=== PATIENT | female | born 1945 | race Caucasian/White ===

== ENCOUNTER 2016-06-12 08:07 | Emergency (ER) | payer OTHER ==
[2016-06-12 08:18] VITALS: BP 131/96; PULSE 102; TEMP 98.3; BMI 22.2
--- NOTE | 2016-06-12 09:01 | PDOC ---
History of Present Illness - General Chief Complaint: Sore Throat Stated Complaint: SORE THROAT Time Seen by Provider: 06/12/16 08:33 History Source: Patient Exam Limitations: No Limitations - History of Present Illness Initial Comments: 06/12/16 08:56 CC many months of dry mouth Timing/Duration: intermittent Severity: mild Modifying Factors: worse with: cold therapy, medication Associated Symptoms: denies: cough, loss of appetite, malaise, shortness of breath Past History - Past Medical History Allergies/Adverse Reactions: Allergies Allergy/AdvReac Type Severity Reaction Status Date / Time ibuprofen [From Motrin] Allergy Intermediate Rash Verified 06/12/16 08:13 Home Medications: Ambulatory Orders Acetaminophen [Tylenol .Extra-Strength -] 1,000 mg PO TID #20 tablet 04/19/13 Lisinopril/Hydrochlorothiazide [Lisinopril-Hctz 20-25 mg Tab] 1 each PO DAILY Lovastatin 20 mg PO DAILY 04/19/13 Metaxalone [Skelaxin] 800 mg PO TID #15 tablet 04/19/13 GI Disorders: Yes (GERD) HTN: Yes Hypercholesterolemia: Yes - Surgical History Abdominal Surgery: Yes (hernia) - Psycho/Social/Smoking Cessation Hx Anxiety: No Suicidal Ideation: No Smoking Status: No Smoking History: Never smoked Number of Cigarettes Smoked Daily: 0 Hx Alcohol Use: No Drug/Substance Use Hx: No Substance Use Type: None Review of Systems - Review of Systems Constitutional: No: Chills, Fever HEENTM: Yes: Mouth Pain. No: Symptoms Reported, Nose Bleeding, Throat Pain, Throat Swelling, Difficulty Swallowing, Mouth Swelling Respiratory: No: Symptoms reported, Cough Cardiac (ROS): No: Symptoms Reported, Chest Pain ABD/GI: No: Symptoms Reported *Physical Exam - Vital Signs Last Vital Signs Temp Pulse Resp BP Pulse Ox 98.3 F 102 H 20 131/96 98 06/12/16 08:08 06/12/16 08:08 06/12/16 08:08 06/12/16 08:08 06/12/16 08:08 - Physical Exam General Appearance: Yes: Appropriately Dressed HEENT: positive: TMs Normal, Other (nasal tissue appear dry and no mucous) Neck: positive: Lymphadenopathy (R), Lymphadenopathy (L). negative: Tender, Rigid Respiratory/Chest: positive: Lungs Clear. negative: Accessory Muscle Use Medical Decision Making - Medical Decision Making 06/12/16 08:[address] Ly; also will suggest sugarless candy to stimulate silivary activities *DC/Admit/Observation/Transfer Diagnosis at time of Disposition: Xerostomia, Lymphadenopathy - Discharge Dispostion Disposition: HOME Condition at time of disposition: Stable Admit: No - Referrals Referrals: Evan Ly MD [Staff Physician] - - Patient Instructions Additional Instructions: please use sugarless throat lozenges; and see DR. ly in offices for further work up
== END 2016-06-12 09:10 | disposition home or self-care (01) ==
LOC: JERFT 08:07 → JER 08:07 → JERFT 09:10
DX: K11.7 Disturbances of salivary secretion (principal); R59.0 Localized enlarged lymph nodes; I10 Essential (primary) hypertension; E78.00 Pure hypercholesterolemia, unspecified; K21.9 Gastro-esophageal reflux disease without esophagitis
CPT/HCPCS: 99281-25

== ENCOUNTER 2018-08-07 13:34 | Emergency (ER) | payer OTHER ==
[2018-08-07 14:08] VITALS: BP 120/68; PULSE 75; TEMP 98; BMI 53.4
--- NOTE | 2018-08-07 15:50 | PDOC ---
History of Present Illness - General Chief Complaint: Injury Stated Complaint: injury Time Seen by Provider: 08/07/18 15:37 - History of Present Illness Initial Comments: 08/07/18 15:49 He 3-year-old female with a past medical history significant for hypertension acid reflux and dyslipidemia presents for evaluation of right second finger pain. 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 Past History - Past Medical History Allergies/Adverse Reactions: Allergies Allergy/AdvReac Type Severity Reaction Status Date / Time ibuprofen [From Motrin] Allergy Intermediate Rash Verified 08/07/18 14:08 Home Medications: Ambulatory Orders Lisinopril/Hydrochlorothiazide [Lisinopril-Hctz 20-25 mg Tab] 1 each PO DAILY Lovastatin 20 mg PO DAILY 04/19/13 Metaxalone [Skelaxin] 800 mg PO TID #15 tablet 04/19/13 COPD: No GI Disorders: Yes (GERD) HTN: Yes Hypercholesterolemia: Yes - Surgical History Abdominal Surgery: Yes (hernia) - Suicide/Smoking/Psychosocial Hx Smoking Status: No Smoking History: Never smoked Have you smoked in the past 12 months: No Number of Cigarettes Smoked Daily: 0 Information on smoking cessation initiated: No Hx Alcohol Use: No Drug/Substance Use Hx: No Substance Use Type: None Review of Systems - Review of Systems Musculoskeletal: Yes: See HPI, Joint Pain *Physical Exam - Vital Signs Last Vital Signs Temp Pulse Resp BP Pulse Ox 98.0 F 75 16 120/68 100 08/07/18 14:03 08/07/18 14:03 08/07/18 14:03 08/07/18 14:03 08/07/18 14:03 - Physical Exam Comments: 08/07/18 15:49 Right second finger skin color and temperature are normal. There is moderate swelling about the proximal aspect of the finger on the skin overlying the proximal phalanx. There are no gross sensory deficits. However she is unable to make a full fist and FDS and FDP function unable to be independently evaluated. This is secondary to pain. ED Treatment Course - RADIOLOGY Radiology Studies Ordered: Category Date Time Status HAND- RIGHT [RAD] Stat Radiology 08/07/18 15:46 Ordered Medical Decision Making - Medical Decision Making 08/07/18 16:20 no acute fx on raidograph today, moderate to severe arthritic changes, f/u with hand *DC/Admit/Observation/Transfer Diagnosis at time of Disposition: Finger sprain - Discharge Dispostion Disposition: HOME Condition at time of disposition: Stable Decision to Admit order: No - Referrals Referrals: Woo Reyes MD [Primary Care Provider] - Woo Mcdonald MD [Staff Physician] - - Patient Instructions Printed Discharge Instructions: DI for Finger Sprain, Finger Sprain Additional Instructions: Follow-up with hand surgery in 1-2 days for further evaluation and treatment options. Return to the emergency room for worsening symptoms. Tylenol as directed for pain. - Post Discharge Activity
== END 2018-08-07 16:35 | disposition home or self-care (01) ==
LOC: JERFT 13:34
DX: S63.630A Sprain of interphalangeal joint of right index finger, initial encounter (principal); X50.9XXA Other and unspecified overexertion or strenuous movements or postures, initial encounter; Y93.89 Activity, other specified; Y92.89 Other specified places as the place of occurrence of the external cause; Y99.0 Civilian activity done for income or pay; I10 Essential (primary) hypertension; E78.5 Hyperlipidemia, unspecified; K21.9 Gastro-esophageal reflux disease without esophagitis
CPT/HCPCS: 73130-TC-RT-FY; 99281-25

== ENCOUNTER 2019-05-03 10:51 | Emergency (ER) | payer OTHER ==
[2019-05-03 10:57] VITALS: TEMP 98.4; BMI 24.0
[2019-05-03] MEDS ORDERED: ONDANSETRON 4 MG/2 ML VIAL IVPUSH ONE (12:04)
[2019-05-03] MEDS ORDERED: ONDANSETRON 4 MG/2 ML VIAL ONE (12:53)
[2019-05-03] MEDS ORDERED: SODIUM CHLORIDE 500 ML IV STA (13:14)
[2019-05-03 13:16] LABS: BASO % 1.1 % (0-2.0); EOS % 1.4 % (0-4.5); HEMOGLOBIN 11.7 GM/dL (10.7-15.3); LYMPH % 18.8 % (8-40); MCH 27.9 pg (25.7-33.7); MCHC 34.4 g/dl (32.0-36.0); MEAN CELL VOLUME 81.1 fl (80-96); MEAN PLT VOLUME 7.8 fl (7.5-11.1); MONO % 10.7 % (3.8-10.2); PLATELET COUNT 479 K/MM3 (134-434); RBC 4.19 M/mm3 (3.60-5.2); RDW 14.5 % (11.6-15.6); WHITE BLOOD COUNT 7.1 K/mm3 (4.0-10.0)
[2019-05-03 13:49] LABS: ALBUMIN 3.4 g/dl (3.4-5.0); BILIRUBIN,TOTAL 0.4 mg/dL (0.2-1); BLOOD UREA NITROGEN 13.2 mg/dL (7-18); CALCIUM 9.5 mg/dL (8.5-10.1); CREATININE 0.9 mg/dL (0.55-1.3); MAGNESIUM 2.2 mg/dL (1.8-2.4); POTASSIUM 4.4 mmol/L (3.5-5.1); TOT PROT 7.2 g/dl (6.4-8.2)
[2019-05-03 14:17] LABS: HYALINE CASTS 8 /lpf (0-8); URINE APPEARANCE CLEAR; URINE BACTERIA 7.9 /hpf (NEGATIVE); URINE BILIRUBIN NEGATIVE (NEGATIVE); URINE COLOR YELLOW; URINE GLUCOSE (UA) NEGATIVE (NEGATIVE); URINE KETONE NEGATIVE (NEGATIVE); URINE LEUK ESTERASE TRACE (NEGATIVE); URINE NITRITE NEGATIVE (NEGATIVE); URINE PROTEIN 1+ (NEGATIVE); URINE RBC 1 /hpf (0-4); URINE WBC 2 /hpf (0-5)
--- NOTE | 2019-05-03 15:47 | PDOC ---
History of Present Illness - General Chief Complaint: Pain, Acute Stated Complaint: NAUSEA/VOMITING Time Seen by Provider: 05/03/19 12:03 History Source: Patient Exam Limitations: No Limitations - History of Present Illness Travel History: No Initial Comments: 05/03/19 14:45 73-year-old female presents the ED with complaints of intermittent nausea and vomiting for the past 3 months causing her to lose approximately 10 pounds. Patient has been seen by motor equipment sergeant and she states she also had fullness with swallowing but EGD showed no significant findings. Patient also states was told recently she had a pituitary tumor that was found on head CT now pending an MRI of the brain. Patient denies change in bowel pattern, change in urine pattern, fever, chills, weakness or headache patient also denies any visual changes or posterior neck pain Timing/Duration: reports: getting worse, intermittent Quality: reports: mild, cramping Abdominal Pain Onset Location: reports: generalized abdomen Pain Radiation: reports: no radiation Activities at Onset: reports: none Aggravating Factors: improves with: Eating Alleviating Factors: improves with: None Past History - Travel Traveled outside of the country in the last 30 days: No Close contact w/someone who was outside of country & ill: No - Past Medical History Allergies/Adverse Reactions: Allergies Allergy/AdvReac Type Severity Reaction Status Date / Time ibuprofen [From Motrin] Allergy Intermediate Rash Verified 08/07/18 14:08 Home Medications: Ambulatory Orders Lisinopril/Hydrochlorothiazide [Lisinopril-Hctz 20-25 mg Tab] 1 each PO DAILY Lovastatin 20 mg PO DAILY 04/19/13 Metaxalone [Skelaxin] 800 mg PO TID #15 tablet 04/19/13 COPD: No GI Disorders: Yes (GERD) HTN: Yes Hypercholesterolemia: Yes - Surgical History Abdominal Surgery: Yes (hernia) - Psycho Social/Smoking Cessation Hx Smoking Status: No Smoking History: Never smoked Have you smoked in the past 12 months: No Number of Cigarettes Smoked Daily: 0 Hx Alcohol Use: No Drug/Substance Use Hx: No Substance Use Type: None Patient Lives Alone: No Lives with/in: son Abd/GI Specific PMHX - Complaint Specific PMHX GERD: Yes Review of Systems - Review of Systems Able to Perform ROS?: Yes Constitutional: Yes: Loss of Appetite, Unintentional Wgt. Loss (Approximately 10 pounds over 3 months) HEENTM: No: Symptoms Reported Respiratory: No: Symptoms reported Cardiac (ROS): No: Symptoms Reported ABD/GI: Yes: Nausea, Poor Appetite, Poor Fluid Intake, Vomiting, Abdominal cramping. No: Constipated, Diarrhea : No: Symptoms Reported Musculoskeletal: No: Symptoms Reported Integumentary: No: Symptoms Reported Neurological: No: Headache, Dizziness Hematologic/Lymphatic: No: Symptoms Reported *Physical Exam - Vital Signs Last Vital Signs Temp Pulse Resp BP Pulse Ox 98.4 F 55 L 22 H 140/76 99 05/03/19 10:55 05/03/19 10:55 05/03/19 10:55 05/03/19 10:55 05/03/19 10:55 - Physical Exam General Appearance: Yes: Nourished, Appropriately Dressed. No: Apparent Distress, Cachetic, Thin HEENT: positive: EOMI, ALEXEY, TMs Normal, Pharynx Normal. negative: Pale Conjunctivae Neck: positive: Supple Respiratory/Chest: positive: Lungs Clear, Normal Breath Sounds. negative: Respiratory Distress, Accessory Muscle Use Cardiovascular: positive: Regular Rhythm, Regular Rate. negative: Murmur Gastrointestinal/Abdominal: positive: Normal Bowel Sounds, Soft, Tenderness ( Mild generalized). negative: Distended, Guarding, Rebound Extremity: positive: Normal Inspection Integumentary: positive: Normal Color, Warm, Moist Neurologic: positive: Motor Strength 5/5 (Ambulatory) ED Treatment Course - LABORATORY CBC & Chemistry Diagram: 05/03/19 12:53 05/03/19 12:53 - ADDITIONAL ORDERS Additional order review: Laboratory Results 05/03/19 05/03/19 14:08 12:53 Sodium 128 L Potassium 4.4 Chloride 92 L Carbon Dioxide 27 Anion Gap 9 BUN 13.2 Creatinine 0.9 Est GFR (CKD-EPI)AfAm 74.56 Est GFR (CKD-EPI)NonAf 64.33 Random Glucose 110 H Calcium 9.5 Magnesium 2.2 Total Bilirubin 0.4 AST 29 ALT 30 Alkaline Phosphatase 210 H Total Protein 7.2 Albumin 3.4 Lipase 206 Urine Color Yellow Urine Appearance Clear Urine pH 6.0 Ur Specific [place] 1.019 Urine Protein 1+ H Urine Glucose (UA) Negative Urine Ketones Negative Urine Blood Negative Urine Nitrite Negative Urine Bilirubin Negative Urine Urobilinogen 1.0 Ur Leukocyte Esterase Trace Urine WBC (Auto) 2 Urine RBC (Auto) 1 Urine Casts (Auto) 8 U Epithel Cells (Auto) 1.0 Urine Bacteria (Auto) 7.9 05/03/19 12:53 RBC 4.19 MCV 81.1 MCHC 34.4 RDW 14.5 MPV 7.8 Neutrophils % 68.0 Lymphocytes % 18.8 Monocytes % 10.7 H Eosinophils % 1.4 Basophils % 1.1 - RADIOLOGY Radiology Studies Ordered: Category Date Time Status ABDOMEN & PELVIS CT WITH CONTR [CT] Stat CT Scan 05/03/19 13:03 Ordered - Medications Given in the ED: ED Medications Discontinued Medications Generic Name Dose Route Start Last Admin Trade Name Freq PRN Reason Stop Dose Admin Sodium Chloride 500 mls @ 500 mls/hr 05/03/19 13:14 05/03/19 13:27 Normal Saline - IV 05/03/19 14:13 500 mls/hr ASDIR STA Administration Ondansetron HCl 4 mg 05/03/19 12:04 05/03/19 13:03 Zofran Injection IVPUSH 05/03/19 12:05 4 mg ONCE ONE Administration Medical Decision Making - Medical Decision Making 05/03/19 15:46 Chief complaint nausea vomiting with a 10 pound weight loss over the past 3 months. Patient also with found pituitary tumor pending an MRI of the brain patient was also seen by GI since she also states had difficulty swallowing with no significant findings on EGD. Exam: Patient with mild generalized tenderness to the abdomen without other acute findings. Plan: Labs, urine, IV fluids, Zofran, abdominal pelvis CT with contrast ordered chief complaint: 05/03/19 15:48 Laboratory Tests 05/03/19 05/03/19 05/03/19 12:53 12:53 13:05 WBC 7.1 Hgb 11.7 Hct 34.0 Plt Count 479 H Monocytes % 10.7 H Sodium 128 L Potassium 4.4 Chloride 92 L Carbon Dioxide 27 Anion Gap 9 BUN 13.2 Creatinine 0.9 Est GFR (CKD-EPI)AfAm 74.56 Est GFR (CKD-EPI)NonAf 64.33 Random Glucose 110 H Calcium 9.5 Magnesium 2.2 Total Bilirubin 0.4 AST 29 ALT 30 Alkaline Phosphatase 210 H Total Protein 7.2 Albumin 3.4 Lipase 206 Cortisol AM Sample Pending Urine Protein Urine Glucose (UA) Urine Ketones Urine Blood Urine Nitrite Urine Bilirubin Urine Urobilinogen Ur Leukocyte Esterase Urine WBC (Auto) Urine RBC (Auto) Urine Casts (Auto) 05/03/19 14:08 WBC Hgb Hct Plt Count Monocytes % Sodium Potassium Chloride Carbon Dioxide Anion Gap BUN Creatinine Est GFR (CKD-EPI)AfAm Est GFR (CKD-EPI)NonAf Random Glucose Calcium Magnesium Total Bilirubin AST ALT Alkaline Phosphatase Total Protein Albumin Lipase Cortisol AM Sample Urine Protein 1+ H Urine Glucose (UA) Negative Urine Ketones Negative Urine Blood Negative Urine Nitrite Negative Urine Bilirubin Negative Urine Urobilinogen 1.0 Ur Leukocyte Esterase Trace Urine WBC (Auto) 2 Urine RBC (Auto) 1 Urine Casts (Auto) 8 05/03/19 15:52 Patient did receive IV fluids patient states feeling better in regards to nausea. Patient currently in CT. Case discussed with Resident Dr. Pagan Discharge - Discharge Information Problems reviewed: Yes Clinical Impression/Diagnosis: Abdominal pain Condition: Improved Disposition: HOME - Follow up/Referral Referrals: Woo Reyes MD [Primary Care Provider] - - Patient Discharge Instructions Patient Printed Discharge Instructions: DI for Abdominal Pain-Adult Additional Instructions: Follow up with your primary care doctor within the next 2 days and let him known about your cat scan findings. Come back to the emergency department for any new, worsening or concerning symptom. Print Language: PALESTINIAN - Post Discharge Activity
--- NOTE | 2019-05-03 18:56 | PDOC ---
*Physical Exam - Vital Signs Last Vital Signs Temp Pulse Resp BP Pulse Ox 98.4 F 55 L 22 H 140/76 99 05/03/19 10:55 05/03/19 10:55 05/03/19 10:55 05/03/19 10:55 05/03/19 10:55 ED Treatment Course - LABORATORY CBC & Chemistry Diagram: 05/03/19 12:53 05/03/19 12:53 - ADDITIONAL ORDERS Additional order review: Laboratory Results 05/03/19 05/03/19 14:08 12:53 Sodium 128 L Potassium 4.4 Chloride 92 L Carbon Dioxide 27 Anion Gap 9 BUN 13.2 Creatinine 0.9 Est GFR (CKD-EPI)AfAm 74.56 Est GFR (CKD-EPI)NonAf 64.33 Random Glucose 110 H Calcium 9.5 Magnesium 2.2 Total Bilirubin 0.4 AST 29 ALT 30 Alkaline Phosphatase 210 H Total Protein 7.2 Albumin 3.4 Lipase 206 Urine Color Yellow Urine Appearance Clear Urine pH 6.0 Ur Specific [place] 1.019 Urine Protein 1+ H Urine Glucose (UA) Negative Urine Ketones Negative Urine Blood Negative Urine Nitrite Negative Urine Bilirubin Negative Urine Urobilinogen 1.0 Ur Leukocyte Esterase Trace Urine WBC (Auto) 2 Urine RBC (Auto) 1 Urine Casts (Auto) 8 U Epithel Cells (Auto) 1.0 Urine Bacteria (Auto) 7.9 05/03/19 12:53 RBC 4.19 MCV 81.1 MCHC 34.4 RDW 14.5 MPV 7.8 Neutrophils % 68.0 Lymphocytes % 18.8 Monocytes % 10.7 H Eosinophils % 1.4 Basophils % 1.1 - Medications Given in the ED: ED Medications Discontinued Medications Generic Name Dose Route Start Last Admin Trade Name Freq PRN Reason Stop Dose Admin Sodium Chloride 500 mls @ 500 mls/hr 05/03/19 13:14 05/03/19 13:27 Normal Saline - IV 05/03/19 14:13 500 mls/hr ASDIR STA Administration Ondansetron HCl 4 mg 05/03/19 12:04 05/03/19 13:03 Zofran Injection IVPUSH 05/03/19 12:05 4 mg ONCE ONE Administration Medical Decision Making - Medical Decision Making 05/03/19 18:[address] findings of acute abnormality are identified. A nonspecific 3 x 2.7 x 1.4 cm soft tissue nodule is seen within the right anterior pelvic wall abutting the pelvic wall musculature - ? Possible desmoid. A 1 cm left adrenal nodule is seen very likely representing an adenoma on a statistical basis. Biochemical evaluation is suggested as well as 3 month follow-up noncontrast CT/ MRI. 1 cm distal splenic artery aneurysm with peripheral rim calcification PAtient feels much better, wishes to eat. Will tell patient about ct findings and dc home. Discharge - Discharge Information Problems reviewed: Yes Clinical Impression/Diagnosis: Abdominal pain Condition: Improved Disposition: HOME - Admission No - Follow up/Referral Referrals: Woo Reyes MD [Primary Care Provider] - - Patient Discharge Instructions Patient Printed Discharge Instructions: DI for Abdominal Pain-Adult Additional Instructions: Follow up with your primary care doctor within the next 2 days and let him known about your cat scan findings. Come back to the emergency department for any new, worsening or concerning symptom. Print Language: [place] TOME[place] - Post Discharge Activity
[2019-05-03 19:11] VITALS: BP 166/81; PULSE 54
== END 2019-05-03 19:11 | disposition home or self-care (01) ==
LOC: SUPCPDRO 10:51 → JER 10:51
PROC: 3E0337Z Introduction of Electrolytic and Water Balance Substance into Peripheral Vein, Percutaneous Approach (ICD-10-PCS; principal; 2019-05-03)
PROC: 3E033GC Introduction of Other Therapeutic Substance into Peripheral Vein, Percutaneous Approach (ICD-10-PCS; 2019-05-03)
DX: R10.9 Unspecified abdominal pain (principal)
CPT/HCPCS: 36415; 74177-TC; 80053; 81003; 82533; 83690; 83735; 84443; 85025; 87086; 99285-25; Q9967

== ENCOUNTER 2019-05-05 15:16 | Inpatient (IN) | payer OTHER ==
--- NOTE | 2019-05-05 16:04 | PDOC ---
History of Present Illness - General Chief Complaint: Nausea/Vomiting Stated Complaint: VOMITING/STOMACH PAIN Time Seen by Provider: 05/05/19 16:03 History Source: Patient Exam Limitations: No Limitations - History of Present Illness Initial Comments: 05/05/19 16:07 73yF w PMHx HTN HLD GERD constipation pituitary tumor presenting w 2 weeks nausea/vomiting w PO intake, 10lb weight loss, mild constant epigastric pain feels like intestines twisting. Last BM this morning. Takes protonix w/o relief. Seen in ED 2d ago, CT A/P showed soft tissue nodule in R anterior pelvic wall, 1cm L adrenal nodule, 1cm distal splenic artery aneurysm. Has scheduled brain MRI tomorrow to evaluate pituitary tumor found on head CT. Also seen by salary manager and she states she also had fullness with swallowing but EGD showed no significant findings. Denies fever, headache, cough, chest pain/SOB, dysuria, diarrhea, ABD distension. Past History - Past Medical History Allergies/Adverse Reactions: Allergies Allergy/AdvReac Type Severity Reaction Status Date / Time ibuprofen [From Motrin] Allergy Intermediate Rash Verified 05/05/19 15:23 Home Medications: Ambulatory Orders Lisinopril/Hydrochlorothiazide [Lisinopril-Hctz 20-25 mg Tab] 1 each PO DAILY Lovastatin 20 mg PO DAILY 04/19/13 Metaxalone [Skelaxin] 800 mg PO TID #15 tablet 04/19/13 COPD: No GI Disorders: Yes (GERD) HTN: Yes Hypercholesterolemia: Yes - Surgical History Abdominal Surgery: Yes (hernia) - Psycho Social/Smoking Cessation Hx Smoking Status: No Smoking History: Never smoked Have you smoked in the past 12 months: No Number of Cigarettes Smoked Daily: 0 Hx Alcohol Use: No Drug/Substance Use Hx: No Substance Use Type: None Review of Systems - Review of Systems Constitutional: No: Chills, Fever HEENTM: No: Eye Pain, Nose Pain Respiratory: No: Cough, Shortness of Breath Cardiac (ROS): No: Chest Pain, Palpitations ABD/GI: Yes: Constipated, Nausea, Vomiting. No: Abdominal Distended, Diarrhea : No: Burning, Discharge Musculoskeletal: No: Back Pain, Joint Pain Integumentary: No: Bruising, Flushing Neurological: No: Headache, Seizure Psychiatric: No: Anxiety, Depression Endocrine: No: Intolerance to Cold, Intolerance to Heat Hematologic/Lymphatic: No: Anemia, Blood Clots *Physical Exam - Vital Signs Last Vital Signs Temp Pulse Resp BP Pulse Ox 98 F 57 L 18 148/72 99 05/05/19 15:20 05/05/19 15:20 05/05/19 15:20 05/05/19 15:20 05/05/19 15:20 - Physical Exam General Appearance: Yes: Nourished, Appropriately Dressed, Apparent Distress HEENT: positive: EOMI, ALEXEY, Normal Voice, Hearing Grossly Normal. negative: Scleral Icterus (R), Scleral Icterus (L) Respiratory/Chest: positive: Lungs Clear, Normal Breath Sounds. negative: Chest Tender, Respiratory Distress Cardiovascular: positive: Regular Rhythm, S1, S2, Bradycardia. negative: Edema , Murmur Gastrointestinal/Abdominal: positive: Normal Bowel Sounds, Tender (mild epigastric, RLQ), Flat, Soft. negative: Organomegaly Musculoskeletal: negative: CVA Tenderness (R), CVA Tenderness (L) Extremity: positive: Delayed Capillary Refill Integumentary: positive: Normal Color, Dry Neurologic: positive: rn cardiac II-XII NML intact, Fully Oriented, Alert, Normal Mood/ Affect, Normal Response, Responsive. negative: Sensory Deficit, Confused, Disoriented ED Treatment Course - LABORATORY CBC & Chemistry Diagram: 05/05/19 17:50 05/05/19 17:50 Medical Decision Making - Medical Decision Making 05/05/19 16:30 EKG sinus bradycardia w 1st deg AV block, HR 51, TX 210, QTc 435, TWI V1 RUQ US - normal gallbladder, bile ducts, pancreas, liver lactate 2, Na 124, Cl 88 --- 73yF w PMHx HTN HLD GERD constipation pituitary tumor presenting w 2 weeks nausea/vomiting, weight loss, mild epigastric and RLQ pain d/t gastritis vs GERD vs chronic mesenteric ischemia. Low concern for pancreatitis (normal lipase ) vs ACS (neg trop, no ST elevation) vs SBO (not distended or diffusely tender) vs UTI (clean). Has thrombocythemia plt 526 Given 1L NS, zofran, pepcid, maalox, tylenol, 2 morphine. Nausea resolved, unchanged 5/[address] Bruce - (hx pituitary tumor, low Na/Cl, n/v/dehydrated) - advised electrolyte disturbances likely d/t vomiting, dehydration, advise continue hydration w NS, trend Na Admitted m/s Dr Rudolph for intractable ABD pain failing outpatient treatment, hyponatremia PCP Dr Woo Reyes to Dr Rudolph Discharge - Discharge Information Problems reviewed: Yes Clinical Impression/Diagnosis: Hyponatremia Abdominal pain Qualifiers: Abdominal location: epigastric Qualified Code(s): R10.13 - Epigastric pain Condition: Stable - Follow up/Referral - Patient Discharge Instructions - Post Discharge Activity
[2019-05-05] MEDS ORDERED: FAMOTIDINE 20 MG/50 ML IVPB 20 MG/50 ML MG IVPB ONE ×2 (16:26→17:21)
[2019-05-05] MEDS ORDERED: ONDANSETRON 4 MG/2 ML VIAL IVPUSH ONE (16:26)
[2019-05-05] MEDS ORDERED: MAG HYDROX/AL HYDROX/SIMETH 30 ML UNIT-DOSE CUP PO ONE (16:26)
[2019-05-05] MEDS ORDERED: SODIUM CHLORIDE 0.9% 500 ML INFUS.BAG IV ONE (16:26)
[2019-05-05] MEDS ORDERED: ACETAMINOPHEN 1000 MG/100 ML VIAL (NON FORMULARY) IVPB ONE (16:41)
[2019-05-05] MEDS ORDERED: ONDANSETRON 4 MG/2 ML VIAL ONE (17:21)
[2019-05-05] MEDS ORDERED: ACETAMINOPHEN INJECTION 100 ML IVPB ONE (17:21)
[2019-05-05] MEDS ORDERED: MAG HYDROX/AL HYDROX/SIMETH 30 ML UNIT-DOSE CUP ONE (17:21)
--- NOTE | 2019-05-05 17:57 | PDOC ---
Documentation entered by Christie Meyers SCRIBE, acting as scribe for Zakia Cunha MD. Zakia Cunha MD: This documentation has been prepared by the himaibe, Christie Meyers SCRIBE, under my direction and personally reviewed by me in its entirety. I confirm that the documentation accurately reflects all work, treatment, procedures, and medical decision making performed by me. Attending Attestation - Resident Resident Name: Hector Benton - ED Attending Attestation I have performed the following: I have examined & evaluated the patient, The case was reviewed & discussed with the resident, I agree w/resident's findings & plan, Exceptions are as noted - HPI HPI: 05/05/19 18:16 73-year-old female is coming in again with epigastric pain and persistent nausea and vomiting. She was seen here in the last couple days for the same complaint and at that time had a CAT scan that did not show a surgical cause for her symptoms. Past surgical history hernia surgery - Physicial Exam PE: 05/05/19 18:16 alert 73-year-old female presents with persistent nausea and vomiting and epigastric pain Head normocephalic atraumatic Neck is supple Lungs are clear to auscultation bilaterally CVS regular rate rhythm S1-S2 Abdominal exam she has some mild epigastric tenderness with palpation but no rebound or guarding No flank pain Skin warm and dry Neuro she is alert, ambulatory in the ER no gross focal neuro deficits appreciated - Medical Decision Making 05/05/19 18:42 Petite 73-year-old female with persistent epigastric pain nausea vomiting Review of her labs shows a hyponatremia of 124 Her sodium levels were 128 several days ago She is received IV fluids, antiemetics and pain medications Abdominal ultrasound obtained 05/05/19 21:54 Abdominal ultrasound does not show any acute abdominal pathology, no evidence of cholecystitis 05/05/19 21:54 IMP persistent epigastric pain and vomiting,hyponatremia admit
[2019-05-05 18:03] LABS: BASO % 1.3 % (0-2.0); EOS % 1.1 % (0-4.5); HEMOGLOBIN 12.1 GM/dL (10.7-15.3); LYMPH % 20.3 % (8-40); MCH 27.8 pg (25.7-33.7); MCHC 34.5 g/dl (32.0-36.0); MEAN CELL VOLUME 80.7 fl (80-96); MEAN PLT VOLUME 7.7 fl (7.5-11.1); MONO % 9.8 % (3.8-10.2); NEUT % 67.5 % (42.8-82.8); PLATELET COUNT 526 K/MM3 (134-434); RBC 4.34 M/mm3 (3.60-5.2); RDW 14.4 % (11.6-15.6); WHITE BLOOD COUNT 8.1 K/mm3 (4.0-10.0)
[2019-05-05 18:22] LABS: EPI CELLS 0.2 /HPF (0-5/HPF); HYALINE CASTS 1 /lpf (0-8); URINE APPEARANCE CLEAR; URINE BACTERIA 1.9 /hpf (NEGATIVE); URINE BILIRUBIN NEGATIVE (NEGATIVE); URINE COLOR YELLOW; URINE GLUCOSE (UA) NEGATIVE (NEGATIVE); URINE KETONE NEGATIVE (NEGATIVE); URINE LEUK ESTERASE NEGATIVE (NEGATIVE); URINE NITRITE NEGATIVE (NEGATIVE); URINE PROTEIN 1+ (NEGATIVE); URINE RBC 4 /hpf (0-4); URINE UROBILINOGEN 0.2 mg/dL (0.2-1.0); URINE WBC 1 /hpf (0-5)
[2019-05-05 18:33] LABS: ALBUMIN 3.5 g/dl (3.4-5.0); ALK PHOS 241 U/L (45-117); ANION GAP 9 MMOL/L (8-16); BILIRUBIN,TOTAL 0.5 mg/dL (0.2-1); BLOOD UREA NITROGEN 9.4 mg/dL (7-18); CALCIUM 9.3 mg/dL (8.5-10.1); CHLORIDE 88 mmol/L (98-107); CO2 28 mmol/L (21-32); CREATININE 0.8 mg/dL (0.55-1.3); GLUCOSE,RANDOM 110 mg/dL (74-106); LIPASE 214 U/L (73-393); POTASSIUM 4.6 mmol/L (3.5-5.1); SGOT/AST 43 U/L (15-37); SGPT/ALT 31 U/L (13-61); SODIUM 124 mmol/L (136-145); TOT PROT 7.7 g/dl (6.4-8.2)
[2019-05-05] MEDS ORDERED: morphine CARPU-JECT 4 MG/1 ML DISP.SYRIN IVPUSH ONE (18:39)
[2019-05-05] MEDS ORDERED: MORPHINE SULFATE 2 MG/ML VIAL ONE (18:40)
[2019-05-05 19:01] LABS: PLATELET ESTIMATE INCREASED
--- NOTE | 2019-05-05 23:43 | HP ---
Admitting History and Physical - Admission History of Present Illness: Py is a 73 y/o female w/ PMH significant for HTN HLD GERD, constipation and pituitary tumor. Pt presents w/ 2 week h/o nausea/vomiting, a 10lb weight loss, and mild constant epigastric pain. Pt was in ER 2 days ago for same symptoms, and had a CT scan abd/pelvis wc showed soft tissue nodule in R anterior pelvic wall, 1cm L adrenal nodule, and 1cm distal splenic artery aneurysm. Has scheduled outpt brain MRI tomorrow to evaluate pituitary tumor found on head CT. 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) Cardiovascular: Yes: HTN, Hyperlipdemia Gastrointestinal: Yes: GERD - Smoking History Smoking history: Never smoked Have you smoked in the past 12 months: No Aproximately how many cigarettes per day: 0 - Alcohol/Substance Use Hx Alcohol Use: No Home Medications - Allergies Allergies/Adverse Reactions: Allergies Allergy/AdvReac Type Severity Reaction Status Date / Time ibuprofen [From Motrin] Allergy Intermediate Rash Verified 05/05/19 15:23 - Home Medications Home Medications: Ambulatory Orders Lisinopril/Hydrochlorothiazide [Lisinopril-Hctz 20-25 mg Tab] 1 each PO DAILY Lovastatin 20 mg PO DAILY 04/19/13 Metaxalone [Skelaxin] 800 mg PO TID #15 tablet 04/19/13 Family Medical History Family History: Unremarkable Review of Systems - Review of Systems Constitutional: reports: Weakness Eyes: reports: No Symptoms HENT: reports: No Symptoms Neck: reports: No Symptoms Cardiovascular: reports: No Symptoms Respiratory: reports: SOB on Exertion Gastrointestinal: reports: Abdominal Pain, Nausea, Vomiting Genitourinary: reports: No Symptoms Physical Examination Vital Signs: Vital Signs Temperature 98 F 05/05/19 15:20 Pulse Rate 52 L 05/05/19 21:45 Respiratory Rate 18 05/05/19 21:45 Blood Pressure 128/71 05/05/19 21:45 O2 Sat by Pulse Oximetry (%) 99 05/05/19 21:45 Eyes: Yes: WNL HENT: Yes: WNL Neck: Yes: WNL, Supple Cardiovascular: Yes: WNL, Regular Rate and Rhythm Respiratory: Yes: WNL, Regular, CTA Bilaterally Gastrointestinal: Yes: WNL, Normal Bowel Sounds, Soft Extremities: Yes: WNL Edema: No Neurological: Yes: WNL, Alert, Oriented ...Motor Strength: WNL Labs: CBC, BMP 05/05/19 17:50 05/05/19 17:50 Problem List - Problems (1) Abdominal pain Assessment/Plan: CT scan abd/spelvis done 05/03/19 and showed: Pelvic wall noduile/splenic aneurysm/adrenal adenoma Check Pelvic US Full Liquid Diet and advance as tolerated GI consult Cont protonix Code(s): R10.9 - UNSPECIFIED ABDOMINAL PAIN Qualifiers: Abdominal location: epigastric Qualified Code(s): R10.13 - Epigastric pain (2) Hyponatremia Assessment/Plan: Renal US Renal consult Cont to monitor NA+ levels Code(s): E87.1 - HYPO-OSMOLALITY AND HYPONATREMIA (3) HTN Assessment/Plan: Cont lisinopril Will dc hctz due to hyponatremia (4) GERD (gastroesophageal reflux disease) Code(s): K21.9 - GASTRO-ESOPHAGEAL REFLUX DISEASE WITHOUT ESOPHAGITIS (5) HLD (hyperlipidemia) Code(s): E78.5 - HYPERLIPIDEMIA, UNSPECIFIED (6) Pituitary adenoma Code(s): D35.2 - BENIGN NEOPLASM OF PITUITARY GLAND
[2019-05-05] MEDS ORDERED: ACETAMINOPHEN 1000 MG/100 ML VIAL (NON FORMULARY) IVPB PRN (23:55)
[2019-05-05] MEDS ORDERED: ONDANSETRON 4 MG/2 ML VIAL IVPUSH PRN (23:57)
[2019-05-06 06:10] LABS: BASO % 2.1 % (0-2.0); EOS % 2.2 % (0-4.5); HEMATOCRIT 32.1 % (32.4-45.2); HEMOGLOBIN 11.2 GM/dL (10.7-15.3); LYMPH % 21.1 % (8-40); MCH 27.9 pg (25.7-33.7); MEAN CELL VOLUME 79.9 fl (80-96); MEAN PLT VOLUME 7.4 fl (7.5-11.1); MONO % 10.8 % (3.8-10.2); NEUT % 63.8 % (42.8-82.8); PLATELET COUNT 513 K/MM3 (134-434); RBC 4.01 M/mm3 (3.60-5.2); RDW 14.3 % (11.6-15.6); WHITE BLOOD COUNT 6.1 K/mm3 (4.0-10.0)
[2019-05-06 06:32] LABS: ALBUMIN 3.3 g/dl (3.4-5.0); BILIRUBIN,TOTAL 0.4 mg/dL (0.2-1); BLOOD UREA NITROGEN 6.9 mg/dL (7-18); CALCIUM 8.9 mg/dL (8.5-10.1); CREATININE 0.8 mg/dL (0.55-1.3); TOT PROT 6.8 g/dl (6.4-8.2)
[2019-05-06] MEDS ORDERED: LISINOPRIL 20 MG TABLET (FP) ONE (09:46)
[2019-05-06] MEDS ORDERED: PANTOPRAZOLE 40 MG TABLET ONE (09:46)
[2019-05-06] MEDS ORDERED: HEPARIN NA (PORCINE) 5,000 UNITS/ML 1ML VIAL ONE (09:46)
[2019-05-06] MEDS ORDERED: PATIENT'S OWN MEDICATION (NON-FORMULARY) (Lisinopril/Hydrochlorothiazide [Lisinopril-Hctz PO SCH (10:00)
[2019-05-06] MEDS ORDERED: PATIENT'S OWN MEDICATION (NON-FORMULARY) (Lovastatin [Lovastatin] 20 MG) PO SCH (10:00)
[2019-05-06] MEDS ORDERED: HYDROCHLOROTHIAZIDE 25 MG TABLET (FP) PO SCH (10:00)
[2019-05-06] MEDS: PANTOPRAZOLE 40 MG TABLET PO SCH (10:02)
[2019-05-06] MEDS: LISINOPRIL 20 MG TABLET (FP) PO SCH (10:02)
[2019-05-06] MEDS: HEPARIN NA (PORCINE) 5,000 UNITS/ML 1ML VIAL SQ SCH ×2 (10:02→22:20)
--- NOTE | 2019-05-06 10:02 | EKG ---
Test Reason : Blood Pressure : / mmHG Vent. Rate : 051 BPM Atrial Rate : 051 BPM P-R Int : 210 ms QRS Dur : 094 ms QT Int : 472 ms P-R-T Axes : 049 030 049 degrees QTc Int : 435 ms SINUS BRADYCARDIA WITH 1ST DEGREE A-V BLOCK OTHERWISE NORMAL ECG WHEN COMPARED WITH ECG OF 19-AUG-2001 14:12, PREMATURE ATRIAL COMPLEXES ARE NO LONGER PRESENT NONSPECIFIC T WAVE ABNORMALITY NO LONGER EVIDENT IN LATERAL LEADS Confirmed by Adam Ramirez ([id number]) on 05/06/2019 10:02:22 AM Referred By: Confirmed By:Adam Ramirez
--- NOTE | 2019-05-06 12:28 | CONSULT ---
Consult Consult Specialty:: Nephrology Reason for Consultation:: hyponatremia - History of Present Illness Chief Complaint: abd pain History of Present Illness: Pt is a 73 year old female with pmhx of htn, hld, gerd, and pituitary tumor who presents with nausea and vomiting for the last week. She also complains of weight loss. She says she drinks water all day but does not have much appetite. She denies headache or dizziness. She could not quantify the amout of water she drinks. She denies dysuria or hematuria. She denies fevers or chills. SHe denies diarrhea. Pt was on HCTZ as outpt. 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) Cardio/Vascular: Yes: HTN, Hyperlipdemia Gastrointestinal: Yes: GERD - Alcohol/Substance Use Hx Alcohol Use: No - Smoking History Smoking history: Never smoked Have you smoked in the past 12 months: No Aproximately how many cigarettes per day: 0 Home Medications - Allergies Allergies/Adverse Reactions: Allergies Allergy/AdvReac Type Severity Reaction Status Date / Time ibuprofen [From Motrin] Allergy Intermediate Rash Verified 05/05/19 15:23 - Home Medications Home Medications: Ambulatory Orders Lisinopril/Hydrochlorothiazide [Lisinopril-Hctz 20-25 mg Tab] 1 each PO DAILY Metaxalone [Skelaxin] 800 mg PO TID #15 tablet 04/19/13 RX: Lovastatin 20 mg PO DAILY 04/19/13 Family Medical History Family History: Denies Review of Systems - Review of Systems Constitutional: reports: No Symptoms Eyes: reports: No Symptoms HENT: reports: No Symptoms Neck: reports: No Symptoms Cardiovascular: reports: No Symptoms Respiratory: reports: No Symptoms Gastrointestinal: reports: Abdominal Pain Genitourinary: reports: No Symptoms Musculoskeletal: reports: No Symptoms Integumentary: reports: No Symptoms Neurological: reports: No Symptoms Endocrine: reports: No Symptoms Hematology/Lymphatic: reports: No Symptoms Psychiatric: reports: No Symptoms Physical Exam Vital Signs: Vital Signs Temperature 98 F 05/05/19 15:20 Pulse Rate 50 L 05/06/19 07:16 Respiratory Rate 16 05/06/19 07:16 Blood Pressure 134/77 05/06/19 07:16 O2 Sat by Pulse Oximetry (%) 98 05/06/19 07:16 Constitutional: Yes: Calm Eyes: Yes: Conjunctiva Clear HENT: Yes: Atraumatic Neck: Yes: Supple Cardiovascular: Yes: S1, S2 Respiratory: Yes: CTA Bilaterally Gastrointestinal: Yes: Soft Musculoskeletal: Yes: WNL Edema: No Neurological: Yes: Oriented Psychiatric: Yes: Oriented Labs: CBC, BMP 05/06/19 05:35 05/06/19 05:35 Imaging - Results Ultrasound: Report Reviewed Problem List - Problems (1) Abdominal pain Code(s): R10.9 - UNSPECIFIED ABDOMINAL PAIN Qualifiers: Abdominal location: epigastric Qualified Code(s): R10.13 - Epigastric pain (2) GERD (gastroesophageal reflux disease) Code(s): K21.9 - GASTRO-ESOPHAGEAL REFLUX DISEASE WITHOUT ESOPHAGITIS (3) Hyponatremia Code(s): E87.1 - HYPO-OSMOLALITY AND HYPONATREMIA Assessment/Plan Current Medications Generic Name Dose Route Start Last Admin Trade Name Freq PRN Reason Stop Dose Admin Acetaminophen 1,000 mg 05/05/19 23:55 Ofirmev Injection - IVPB 05/06/19 23:56 Q6H PRN PAIN Atorvastatin Calcium 20 mg 05/06/19 22:00 Lipitor - PO HS [facility] Heparin Sodium (Porcine) 5,000 unit 05/06/19 10:00 05/06/19 10:02 Heparin - SQ 5,000 unit BID [facility] Administration Sodium Chloride 1,000 mls @ 75 mls/hr 05/06/19 12:30 Normal Saline - IV ASDIR [facility] Lisinopril 20 mg 05/06/19 10:00 05/06/19 10:02 Prinivil PO 20 mg DAILY [facility] Administration Ondansetron HCl 4 mg 05/05/19 23:57 Zofran Injection IVPUSH Q6H PRN NAUSEA AND/OR VOMITING Pantoprazole Sodium 40 mg 05/06/19 10:00 05/06/19 10:02 Protonix - PO 40 mg DAILY [facility] Administration Impression 1. hyponatremia 2. htn 3. vomiting 4. abd pain 5. abd wall mass 6. gerd 7. hld Plan - start saline at 100 cc per hour - monitor sodium - pt was not on fluids when I saw her - stop hctz - check urine lytes and osm - check tsh and cortisol - restrict free water - sg is low, pt likely autocorrecting
[2019-05-06] MEDS ORDERED: SODIUM CHLORIDE 1,000 ML IV SCH ×2 (12:30→16:11)
[2019-05-06 16:00] LABS: BLOOD UREA NITROGEN 7.3 mg/dL (7-18); CALCIUM 8.4 mg/dL (8.5-10.1); CREATININE 0.8 mg/dL (0.55-1.3); POTASSIUM 4.2 mmol/L (3.5-5.1)
[2019-05-06] MEDS ORDERED: SODIUM CHLORIDE 250 ML IV STA (17:39)
--- NOTE | 2019-05-06 18:18 | CON.GI ---
Consult Consult Specialty:: GI Reason for Consultation:: nausea and vomiting - History of Present Illness History of Present Illness: 73 y/io F with PMH of pituitary adenoma, HTN,s/p hysterectomy was doing well until 3 mos ago when she developed persistent epigastricdysphagia, nausea, vomiting and 10lb weight loss. Ct was significant for an anterior pelvic wall thickening. She was also noted to have hyponatermia and adrenal galnd nodule. Last EGD was 2017 which was noted to have gastitis. Last colonoscopy done in 2017 revealed a redundant sigmoid. 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) Cardio/Vascular: Yes: HTN, Hyperlipdemia Gastrointestinal: Yes: GERD - Alcohol/Substance Use Hx Alcohol Use: No - Smoking History Smoking history: Never smoked Have you smoked in the past 12 months: No Aproximately how many cigarettes per day: 0 Home Medications - Allergies Allergies/Adverse Reactions: Allergies Allergy/AdvReac Type Severity Reaction Status Date / Time ibuprofen [From Motrin] Allergy Intermediate Rash Verified 05/05/19 15:23 - Home Medications Home Medications: Ambulatory Orders Lisinopril/Hydrochlorothiazide [Lisinopril-Hctz 20-25 mg Tab] 1 each PO DAILY Lovastatin 20 mg PO DAILY 04/19/13 Metaxalone [Skelaxin] 800 mg PO TID #15 tablet 04/19/13 Physical Exam-GI Vital Signs: Vital Signs Temperature 98.1 F 05/06/19 16:58 Pulse Rate 58 L 05/06/19 16:58 Respiratory Rate 20 05/06/19 14:22 Blood Pressure 128/76 05/06/19 16:58 O2 Sat by Pulse Oximetry (%) 95 05/06/19 16:58 Constitutional: Yes: Well Nourished Eyes: Yes: Conjunctiva Clear HENT: Yes: Atraumatic, Tonsillar Exudate Cardiovascular: Yes: Regular Rate and Rhythm Respiratory: Yes: CTA Bilaterally ...Palpate: Yes: Soft. No: Firm/Rigid, Guarding, Hepatomegaly, Mass, Pulsatile Mass, Splenomegaly, Tenderness Labs: CBC, BMP 05/06/19 05:35 05/06/19 15:15 Home Medications Medication Instructions Recorded Lisinopril/Hydrochlorothiazide 1 each PO DAILY 04/19/13 [Lisinopril-Hctz 20-25 mg Tab] Lovastatin 20 mg PO DAILY 04/19/13 Metaxalone [Skelaxin] 800 mg PO TID #15 tablet 04/19/13 Home Medication List Medication Instructions Recorded Confirmed Type Lisinopril/Hydrochlorothiazide 1 each PO DAILY 04/19/13 08/07/18 History [Lisinopril-Hctz 20-25 mg Tab] Lovastatin 20 mg PO DAILY 04/19/13 08/07/18 History Active Medications Generic Name Dose Route Start Last Admin Trade Name Freq PRN Reason Stop Dose Admin Acetaminophen 1,000 mg 05/05/19 23:55 Ofirmev Injection - IVPB 05/06/19 23:56 Q6H PRN PAIN Atorvastatin Calcium 20 mg 05/06/19 22:00 Lipitor - PO HS [facility] Heparin Sodium (Porcine) 5,000 unit 05/06/19 10:00 05/06/19 10:02 Heparin - SQ 5,000 unit BID [facility] Administration Sodium Chloride 1,000 mls @ 100 mls/hr 05/06/19 16:11 05/06/19 16:21 Normal Saline - IV 100 mls/hr ASDIR [facility] Administration Lisinopril 20 mg 05/06/19 10:00 05/06/19 10:02 Prinivil PO 20 mg DAILY [facility] Administration Ondansetron HCl 4 mg 05/05/19 23:57 Zofran Injection IVPUSH Q6H PRN NAUSEA AND/OR VOMITING Pantoprazole Sodium 40 mg 05/06/19 10:00 05/06/19 10:02 Protonix - PO 40 mg DAILY [facility] Administration Simethicone 80 mg 05/06/19 22:00 Mylicon - PO QID [facility] Problem List - Problems (1) Abdominal pain Assessment/Plan: resolved R> continue Pantoprazole simethicone 80 mg qid made aware to follow up for EGD as an outpatient advance diet Code(s): R10.9 - UNSPECIFIED ABDOMINAL PAIN Qualifiers: Abdominal location: epigastric Qualified Code(s): R10.13 - Epigastric pain (2) Hyponatremia Code(s): E87.1 - HYPO-OSMOLALITY AND HYPONATREMIA (3) Pituitary adenoma Code(s): D35.2 - BENIGN NEOPLASM OF PITUITARY GLAND
[2019-05-06 20:09] VITALS: BMI 21.7
[2019-05-06 20:28] LABS: CALCIUM 8.6 mg/dL (8.5-10.1); CREATININE 0.8 mg/dL (0.55-1.3); POTASSIUM 4.7 mmol/L (3.5-5.1)
[2019-05-06] MEDS: SIMETHICONE 80 MG TAB.CHEW (FP) PO SCH (22:18)
[2019-05-06] MEDS: ATORVASTATIN CA 20 MG TABLET (FP) PO SCH (22:18)
--- NOTE | 2019-05-06 23:29 | PN ---
Progress Note, Physician History of Present Illness: No vomiting - Current Medication List Current Medications: Active Medications Acetaminophen (Ofirmev Injection -) 1,000 mg IVPB Q6H PRN PRN Reason: PAIN Stop: 05/06/19 23:56 Last Admin: 05/06/19 23:07 Dose: 1,000 mg Atorvastatin Calcium (Lipitor -) 20 mg PO HS [facility] Last Admin: 05/06/19 22:18 Dose: 20 mg Heparin Sodium (Porcine) (Heparin -) 5,000 unit SQ BID [facility] Last Admin: 05/06/19 22:20 Dose: 5,000 unit Sodium Chloride (Normal Saline -) 1,000 mls @ 125 mls/hr IV ASDIR [facility] Lisinopril (Prinivil) 20 mg PO DAILY [facility] Last Admin: 05/06/19 10:02 Dose: 20 mg Ondansetron HCl (Zofran Injection) 4 mg IVPUSH Q6H PRN PRN Reason: NAUSEA AND/OR VOMITING Pantoprazole Sodium (Protonix -) 40 mg PO DAILY [facility] Last Admin: 05/06/19 10:02 Dose: 40 mg Simethicone (Mylicon -) 80 mg PO QID [facility] Last Admin: 05/06/19 22:18 Dose: 80 mg - Objective Vital Signs: Vital Signs Temperature 98.7 F 05/06/19 18:15 Pulse Rate 54 L 05/06/19 18:15 Respiratory Rate 18 05/06/19 18:15 Blood Pressure 133/58 L 05/06/19 18:15 O2 Sat by Pulse Oximetry (%) 95 05/06/19 17:50 Neck: Yes: WNL Cardiovascular: Yes: WNL, Regular Rate and Rhythm Respiratory: Yes: WNL, Regular, CTA Bilaterally Gastrointestinal: Yes: WNL, Normal Bowel Sounds, Soft Labs: CBC, BMP 05/06/19 05:35 05/06/19 19:30 Problem List - Problems (1) Abdominal pain Assessment/Plan: CT scan abd/spelvis done 05/03/19 and showed: Pelvic wall nodule/splenic aneurysm /adrenal adenoma Renal/bladder US showed Rt post abdominal wall mass Will get surgical consult Advance diet and monitor GI consult noted Cont protonix Simethicone added F/U as outpt for EGD Code(s): R10.9 - UNSPECIFIED ABDOMINAL PAIN Qualifiers: Abdominal location: epigastric Qualified Code(s): R10.13 - Epigastric pain (2) Hyponatremia Assessment/Plan: Renal US showed atrophic kidneys and ant post wall mass Cont to monitor NA+ levels Code(s): E87.1 - HYPO-OSMOLALITY AND HYPONATREMIA (3) HTN Assessment/Plan: Cont lisinopril Will dc hctz due to hyponatremia (4) GERD (gastroesophageal reflux disease) Code(s): K21.9 - GASTRO-ESOPHAGEAL REFLUX DISEASE WITHOUT ESOPHAGITIS (5) HLD (hyperlipidemia) Code(s): E78.5 - HYPERLIPIDEMIA, UNSPECIFIED (6) Pituitary adenoma Assessment/Plan: Check MRI brain Code(s): D35.2 - BENIGN NEOPLASM OF PITUITARY GLAND
[2019-05-07] MEDS: SODIUM CHLORIDE 1,000 ML IV SCH ×4 (03:26→18:26)
--- NOTE | 2019-05-07 08:51 | PN ---
Progress Note, Physician History of Present Illness: GI FOLLOW UP NOTE Patient examined and case discussed with Dr Sousa Patient complain of epigastric/LUQ pain accompanied with nausea. Denies constipation, rectal bleeding, melena. SHe states having one episode of non- bloody diarrhea last night. - Current Medication List Current Medications: Active Medications Atorvastatin Calcium (Lipitor -) 20 mg PO HS [facility] Last Admin: 05/06/19 22:18 Dose: 20 mg Heparin Sodium (Porcine) (Heparin -) 5,000 unit SQ BID [facility] Last Admin: 05/06/19 22:20 Dose: 5,000 unit Sodium Chloride (Normal Saline -) 1,000 mls @ 125 mls/hr IV ASDIR [facility] Last Admin: 05/07/19 06:44 Dose: 125 mls/hr Lisinopril (Prinivil) 20 mg PO DAILY [facility] Last Admin: 05/06/19 10:02 Dose: 20 mg Ondansetron HCl (Zofran Injection) 4 mg IVPUSH Q6H PRN PRN Reason: NAUSEA AND/OR VOMITING Pantoprazole Sodium (Protonix -) 40 mg PO DAILY [facility] Last Admin: 05/06/19 10:02 Dose: 40 mg Simethicone (Mylicon -) 80 mg PO QID [facility] Last Admin: 05/06/19 22:18 Dose: 80 mg - Objective Vital Signs: Vital Signs Temperature 97.9 F 05/07/19 06:00 Pulse Rate 53 L 05/07/19 06:00 Respiratory Rate 18 05/07/19 06:00 Blood Pressure 117/66 05/07/19 06:00 O2 Sat by Pulse Oximetry (%) 98 05/06/19 21:00 Constitutional: Yes: No Distress, Calm Eyes: Yes: Conjunctiva Clear HENT: Yes: Atraumatic Cardiovascular: Yes: Regular Rate and Rhythm Respiratory: Yes: Regular, CTA Bilaterally Gastrointestinal: Yes: Normal Bowel Sounds, Soft, Tenderness (LUQ), Tenderness, Epigastrium Neurological: Yes: Alert Psychiatric: Yes: Alert Labs: CBC, BMP 05/06/19 05:35 05/06/19 19:30 <Jo Monzon - Last Filed: 05/07/19 08:48> - Current Medication List Current Medications: Active Medications Atorvastatin Calcium (Lipitor -) 20 mg PO HS [facility] Last Admin: 05/06/19 22:18 Dose: 20 mg Heparin Sodium (Porcine) (Heparin -) 5,000 unit SQ BID [facility] Last Admin: 05/07/19 09:58 Dose: 5,000 unit Sodium Chloride (Normal Saline -) 1,000 mls @ 100 mls/hr IV ASDIR [facility] Lisinopril (Prinivil) 20 mg PO DAILY [facility] Last Admin: 05/07/19 10:12 Dose: Not Given Morphine Sulfate (Morphine Sulfate) 2 mg IVPUSH Q6H PRN PRN Reason: PAIN 5-10 Ondansetron HCl (Zofran Injection) 4 mg IVPUSH Q6H PRN PRN Reason: NAUSEA AND/OR VOMITING Pantoprazole Sodium (Protonix -) 40 mg PO DAILY [facility] Last Admin: 05/07/19 09:58 Dose: 40 mg Simethicone (Mylicon -) 80 mg PO QID [facility] Last Admin: 05/07/19 14:06 Dose: 80 mg Sodium Zirconium Cyclosilicate (Lokelma) 10 gm PO DAILY [facility] Stop: 05/08/19 10:01 Last Admin: 05/07/19 15:49 Dose: 10 gm - Objective Vital Signs: Vital Signs Temperature 97.9 F 05/07/19 14:00 Pulse Rate 59 L 05/07/19 14:00 Respiratory Rate 18 05/07/19 14:00 Blood Pressure 144/71 05/07/19 14:00 O2 Sat by Pulse Oximetry (%) 94 L 05/07/19 10:00 Labs: CBC, BMP 05/07/19 08:05 05/07/19 08:05 <Valente Sousa - Last Filed: 05/07/19 17:44> Problem List - Problems (1) Abdominal pain Assessment/Plan: Continue Pantoprazole daily Simethicone 80mg QID patient is to follow up as outpatient for EGD Code(s): R10.9 - UNSPECIFIED ABDOMINAL PAIN Qualifiers: Abdominal location: epigastric Qualified Code(s): R10.13 - Epigastric pain <Jo Monzon - Last Filed: 05/07/19 08:48> - Problems (1) Abdominal pain Code(s): R10.9 - UNSPECIFIED ABDOMINAL PAIN Qualifiers: Abdominal location: epigastric Qualified Code(s): R10.13 - Epigastric pain (2) Hyponatremia Code(s): E87.1 - HYPO-OSMOLALITY AND HYPONATREMIA (3) Pituitary adenoma Code(s): D35.2 - BENIGN NEOPLASM OF PITUITARY GLAND <Valente Sousa - Last Filed: 05/07/19 17:44>
[2019-05-07 09:32] LABS: BASO % 1.1 % (0-2.0); EOS % 1.8 % (0-4.5); HEMATOCRIT 38.1 % (32.4-45.2); HEMOGLOBIN 13.1 GM/dL (10.7-15.3); MCH 27.9 pg (25.7-33.7); MCHC 34.3 g/dl (32.0-36.0); MEAN CELL VOLUME 81.2 fl (80-96); MEAN PLT VOLUME 7.9 fl (7.5-11.1); MONO % 7.1 % (3.8-10.2); PLATELET COUNT 612 K/MM3 (134-434); RBC 4.69 M/mm3 (3.60-5.2); RDW 14.5 % (11.6-15.6); WHITE BLOOD COUNT 7.1 K/mm3 (4.0-10.0)
[2019-05-07] MEDS: PANTOPRAZOLE 40 MG TABLET PO SCH (09:58)
[2019-05-07] MEDS: SIMETHICONE 80 MG TAB.CHEW (FP) PO SCH ×4 (09:58→21:44)
[2019-05-07] MEDS: LISINOPRIL 20 MG TABLET (FP) PO SCH ×2 (09:58→10:12)
[2019-05-07] MEDS: HEPARIN NA (PORCINE) 5,000 UNITS/ML 1ML VIAL SQ SCH ×2 (09:58→21:43)
[2019-05-07 10:05] LABS: ALBUMIN 2.8 g/dl (3.4-5.0); BILIRUBIN,TOTAL 0.5 mg/dL (0.2-1); BLOOD UREA NITROGEN 9.2 mg/dL (7-18); CALCIUM 8.3 mg/dL (8.5-10.1); CREATININE 1.2 mg/dL (0.55-1.3); POTASSIUM 5.3 mmol/L (3.5-5.1); TOT PROT 5.9 g/dl (6.4-8.2)
[2019-05-07 11:19] LABS: ANISOCYTOSIS 3+; MACROCYTOSIS 0; OVALOCYTE 1+; PLATELET ESTIMATE NORMAL
[2019-05-07] MEDS ORDERED: ACETAMINOPHEN 325 MG TABLET (FP) PO ONE (11:45)
[2019-05-07] MEDS ORDERED: MORPHINE SULFATE 2 MG/ML VIAL IVPUSH PRN (15:14)
[2019-05-07] MEDS: SODIUM ZIRCONIUM CYCLOSILICATE (LOKELMA) 5 GM PACKET PO SCH (15:49)
--- NOTE | 2019-05-07 15:56 | CONSULT ---
Consult Consult Specialty:: Surgery Reason for Consultation:: abdominal wall mass - History of Present Illness Chief Complaint: abdominal pain History of Present Illness: 73 y.o female admitted for abdominal pain associated with n & v, and diarrhea referred for incidental finding of abdominal wall mass on CT scan and US. Patient reports to have DEBBI and incisional hernie repair about 18 years ago but unsure if mesh placement was done. Denies pain at lower abdomen. 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) Cardio/Vascular: Yes: HTN, Hyperlipdemia Gastrointestinal: Yes: GERD - Alcohol/Substance Use Hx Alcohol Use: No - Smoking History Smoking history: Never smoked Have you smoked in the past 12 months: No Aproximately how many cigarettes per day: 0 Home Medications - Allergies Allergies/Adverse Reactions: Allergies Allergy/AdvReac Type Severity Reaction Status Date / Time ibuprofen [From Motrin] Allergy Intermediate Rash Verified 05/05/19 15:23 - Home Medications Home Medications: Ambulatory Orders Metaxalone [Skelaxin] 800 mg PO TID #15 tablet 04/19/13 Pantoprazole Sodium [Protonix] 40 mg PO DAILY 05/07/19 Review of Systems - Review of Systems Constitutional: reports: No Symptoms Cardiovascular: reports: No Symptoms Respiratory: reports: No Symptoms Gastrointestinal: reports: Abdominal Pain, Diarrhea, Nausea Musculoskeletal: reports: No Symptoms Integumentary: reports: No Symptoms Psychiatric: reports: No Symptoms Physical Exam Vital Signs: Vital Signs Temperature 97.9 F 05/07/19 14:00 Pulse Rate 59 L 05/07/19 14:00 Respiratory Rate 18 05/07/19 14:00 Blood Pressure 144/71 05/07/19 14:00 O2 Sat by Pulse Oximetry (%) 94 L 05/07/19 10:00 Constitutional: Yes: No Distress Eyes: Yes: Conjunctiva Clear HENT: Yes: Normocephalic Neck: Yes: Supple Cardiovascular: Yes: Regular Rate and Rhythm Respiratory: Yes: CTA Bilaterally Gastrointestinal: Yes: Soft, Other (4 cm infraumbilical mass to the right of midline scar, mildly tender on deep palpation, with ill-defined borders) Labs: CBC, BMP 05/07/19 08:05 05/07/19 08:05 Imaging - Results Cat Scan: Report Reviewed, Image Reviewed Ultrasound: Report Reviewed, Image Reviewed Problem List - Problems (1) Abdominal wall mass Assessment/Plan: r/o desmoid tumor US guided or CT guided core needle biopsy Code(s): R22.2 - LOCALIZED SWELLING, MASS AND LUMP, TRUNK
[2019-05-07] MEDS ORDERED: SODIUM CHLORIDE 1 GM TABLET PO ONE (16:09)
--- NOTE | 2019-05-07 16:09 | PN ---
Progress Note, Physician History of Present Illness: Pt seen and examined at bedside. She is awake and alert. She denies shortness of breath. - Current Medication List Current Medications: Active Medications Atorvastatin Calcium (Lipitor -) 20 mg PO HS [facility] Last Admin: 05/06/19 22:18 Dose: 20 mg Heparin Sodium (Porcine) (Heparin -) 5,000 unit SQ BID [facility] Last Admin: 05/07/19 09:58 Dose: 5,000 unit Sodium Chloride (Normal Saline -) 1,000 mls @ 125 mls/hr IV ASDIR [facility] Last Admin: 05/07/19 15:55 Dose: 125 mls/hr Lisinopril (Prinivil) 20 mg PO DAILY [facility] Last Admin: 05/07/19 10:12 Dose: Not Given Morphine Sulfate (Morphine Sulfate) 2 mg IVPUSH Q6H PRN PRN Reason: PAIN 5-10 Ondansetron HCl (Zofran Injection) 4 mg IVPUSH Q6H PRN PRN Reason: NAUSEA AND/OR VOMITING Pantoprazole Sodium (Protonix -) 40 mg PO DAILY [facility] Last Admin: 05/07/19 09:58 Dose: 40 mg Simethicone (Mylicon -) 80 mg PO QID [facility] Last Admin: 05/07/19 14:06 Dose: 80 mg Sodium Zirconium Cyclosilicate (Lokelma) 10 gm PO DAILY [facility] Stop: 05/08/19 10:01 Last Admin: 05/07/19 15:49 Dose: 10 gm - Objective Vital Signs: Vital Signs Temperature 97.9 F 05/07/19 14:00 Pulse Rate 59 L 05/07/19 14:00 Respiratory Rate 18 05/07/19 14:00 Blood Pressure 144/71 05/07/19 14:00 O2 Sat by Pulse Oximetry (%) 94 L 05/07/19 10:00 Constitutional: Yes: Calm Eyes: Yes: Conjunctiva Clear HENT: Yes: Atraumatic Cardiovascular: Yes: S1, S2 Respiratory: Yes: CTA Bilaterally Gastrointestinal: Yes: WNL, Soft Genitourinary: Yes: WNL Musculoskeletal: Yes: WNL Edema: No Neurological: Yes: Oriented Psychiatric: Yes: Oriented Labs: CBC, BMP 05/07/19 08:05 05/07/19 08:05 Problem List - Problems (1) Abdominal pain Code(s): R10.9 - UNSPECIFIED ABDOMINAL PAIN Qualifiers: Abdominal location: epigastric Qualified Code(s): R10.13 - Epigastric pain (2) GERD (gastroesophageal reflux disease) Code(s): K21.9 - GASTRO-ESOPHAGEAL REFLUX DISEASE WITHOUT ESOPHAGITIS (3) Hyponatremia Code(s): E87.1 - HYPO-OSMOLALITY AND HYPONATREMIA Assessment/Plan Current Medications Generic Name Dose Route Start Last Admin Trade Name Freq PRN Reason Stop Dose Admin Atorvastatin Calcium 20 mg 05/06/19 22:00 05/06/19 22:18 Lipitor - PO 20 mg HS [facility] Administration Heparin Sodium (Porcine) 5,000 unit 05/06/19 10:00 05/07/19 09:58 Heparin - SQ 5,000 unit BID [facility] Administration Sodium Chloride 1,000 mls @ 125 mls/hr 05/06/19 22:57 05/07/19 15:55 Normal Saline - IV 125 mls/hr ASDIR [facility] Administration Lisinopril 20 mg 05/06/19 10:00 05/07/19 10:12 Prinivil PO Not Given DAILY [facility] Morphine Sulfate 2 mg 05/07/19 15:14 Morphine Sulfate IVPUSH Q6H PRN PAIN 5-10 Ondansetron HCl 4 mg 05/05/19 23:57 Zofran Injection IVPUSH Q6H PRN NAUSEA AND/OR VOMITING Pantoprazole Sodium 40 mg 05/06/19 10:00 05/07/19 09:58 Protonix - PO 40 mg DAILY [facility] Administration Simethicone 80 mg 05/06/19 22:00 05/07/19 14:06 Mylicon - PO 80 mg QID [facility] Administration Sodium Zirconium Cyclosilicate 10 gm 05/07/19 11:00 05/07/19 15:49 Lokelma PO 05/08/19 10:01 10 gm DAILY [facility] Administration Impression 1. hyponatremia 2. htn 3. vomiting 4. abd pain 5. abd wall mass 6. gerd 7. hld 8. hyperkalemia Plan - sodium is improving - pt responding to saline - will give a dose of lokelma - do not restart thiazide - repeat urine osm - restrict free water - repeat urine osm
[2019-05-07 18:43] LABS: URINE APPEARANCE CLEAR; URINE BILIRUBIN NEGATIVE (NEGATIVE); URINE COLOR YELLOW; URINE GLUCOSE (UA) NEGATIVE (NEGATIVE); URINE KETONE NEGATIVE (NEGATIVE); URINE LEUK ESTERASE NEGATIVE (NEGATIVE); URINE NITRITE NEGATIVE (NEGATIVE); URINE PROTEIN NEGATIVE (NEGATIVE); URINE UROBILINOGEN 0.2 mg/dL (0.2-1.0)
--- NOTE | 2019-05-07 19:36 | PN ---
Progress Note, Physician - Current Medication List Current Medications: Active Medications Atorvastatin Calcium (Lipitor -) 20 mg PO HS [facility] Last Admin: 05/06/19 22:18 Dose: 20 mg Heparin Sodium (Porcine) (Heparin -) 5,000 unit SQ BID [facility] Last Admin: 05/07/19 09:58 Dose: 5,000 unit Sodium Chloride (Normal Saline -) 1,000 mls @ 100 mls/hr IV ASDIR [facility] Last Admin: 05/07/19 18:26 Dose: 100 mls/hr Lisinopril (Prinivil) 20 mg PO DAILY [facility] Last Admin: 05/07/19 10:12 Dose: Not Given Morphine Sulfate (Morphine Sulfate) 2 mg IVPUSH Q6H PRN PRN Reason: PAIN 5-10 Last Admin: 05/07/19 18:25 Dose: 2 mg Ondansetron HCl (Zofran Injection) 4 mg IVPUSH Q6H PRN PRN Reason: NAUSEA AND/OR VOMITING Pantoprazole Sodium (Protonix -) 40 mg PO DAILY [facility] Last Admin: 05/07/19 09:58 Dose: 40 mg Simethicone (Mylicon -) 80 mg PO QID [facility] Last Admin: 05/07/19 18:26 Dose: 80 mg Sodium Zirconium Cyclosilicate (Lokelma) 10 gm PO DAILY [facility] Stop: 05/08/19 10:01 Last Admin: 05/07/19 15:49 Dose: 10 gm - Objective Vital Signs: Vital Signs Temperature 98.7 F 05/07/19 18:00 Pulse Rate 63 05/07/19 18:00 Respiratory Rate 18 05/07/19 18:00 Blood Pressure 133/66 05/07/19 18:00 O2 Sat by Pulse Oximetry (%) 94 L 05/07/19 10:00 Labs: CBC, BMP 05/07/19 08:05 05/07/19 08:05 Problem List - Problems (1) Abdominal pain Code(s): R10.9 - UNSPECIFIED ABDOMINAL PAIN Qualifiers: Abdominal location: epigastric Qualified Code(s): R10.13 - Epigastric pain (2) Hyponatremia Code(s): E87.1 - HYPO-OSMOLALITY AND HYPONATREMIA (4) GERD (gastroesophageal reflux disease) Code(s): K21.9 - GASTRO-ESOPHAGEAL REFLUX DISEASE WITHOUT ESOPHAGITIS (5) HLD (hyperlipidemia) Code(s): E78.5 - HYPERLIPIDEMIA, UNSPECIFIED (6) Pituitary adenoma Code(s): D35.2 - BENIGN NEOPLASM OF PITUITARY GLAND
[2019-05-07] MEDS: ATORVASTATIN CA 20 MG TABLET (FP) PO SCH (21:44)
[2019-05-08] MEDS: SODIUM CHLORIDE 1,000 ML IV SCH (01:23)
--- NOTE | 2019-05-08 08:02 | PN ---
Progress Note, Physician History of Present Illness: GI FOLLOW UP NOTE Patient examined and case discussed with Dr Sousa Patient complain of dysphagia with solid food. She complains of lower abdominal pain, denies nausea, vomiting, diarrhea, rectal bleeding, melena. Renal US shows anterior abdominal wall mass within RLQ measuring 3.9 x 3.5 x 2.2cm. She is currently NPO for US guided needle biopsy. - Current Medication List Current Medications: Active Medications Atorvastatin Calcium (Lipitor -) 20 mg PO HS [facility] Last Admin: 05/07/19 21:44 Dose: 20 mg Heparin Sodium (Porcine) (Heparin -) 5,000 unit SQ BID [facility] Last Admin: 05/07/19 21:43 Dose: 5,000 unit Sodium Chloride (Normal Saline -) 1,000 mls @ 100 mls/hr IV ASDIR [facility] Last Admin: 05/08/19 01:23 Dose: 100 mls/hr Lisinopril (Prinivil) 20 mg PO DAILY [facility] Last Admin: 05/07/19 10:12 Dose: Not Given Morphine Sulfate (Morphine Sulfate) 2 mg IVPUSH Q6H PRN PRN Reason: PAIN 5-10 Last Admin: 05/07/19 18:25 Dose: 2 mg Ondansetron HCl (Zofran Injection) 4 mg IVPUSH Q6H PRN PRN Reason: NAUSEA AND/OR VOMITING Pantoprazole Sodium (Protonix -) 40 mg PO DAILY [facility] Last Admin: 05/07/19 09:58 Dose: 40 mg Simethicone (Mylicon -) 80 mg PO QID [facility] Last Admin: 05/07/19 21:44 Dose: 80 mg Sodium Zirconium Cyclosilicate (Lokelma) 10 gm PO DAILY [facility] Stop: 05/08/19 10:01 Last Admin: 05/07/19 15:49 Dose: 10 gm - Objective Vital Signs: Vital Signs Temperature 98.7 F 05/08/19 06:00 Pulse Rate 82 05/08/19 06:00 Respiratory Rate 18 05/08/19 06:00 Blood Pressure 137/73 05/08/19 06:00 O2 Sat by Pulse Oximetry (%) 95 05/07/19 21:00 Constitutional: Yes: No Distress, Calm Eyes: Yes: Conjunctiva Clear HENT: Yes: Atraumatic Cardiovascular: Yes: Regular Rate and Rhythm Respiratory: Yes: Regular, CTA Bilaterally Gastrointestinal: Yes: Normal Bowel Sounds, Soft, Tenderness (lower abdomen) Neurological: Yes: Alert Psychiatric: Yes: Alert Labs: CBC, BMP 05/07/19 08:05 05/07/19 08:05 <Jo Monzon - Last Filed: 05/08/19 08:00> - Current Medication List Current Medications: Active Medications Acetaminophen (Tylenol -) 650 mg PO Q6H PRN PRN Reason: PAIN Last Admin: 05/09/19 16:30 Dose: 650 mg Atorvastatin Calcium (Lipitor -) 20 mg PO HS [facility] Last Admin: 05/09/19 22:11 Dose: 20 mg Heparin Sodium (Porcine) (Heparin -) 5,000 unit SQ BID [facility] Last Admin: 05/09/19 22:12 Dose: 5,000 unit Lisinopril (Prinivil) 20 mg PO DAILY [facility] Last Admin: 05/09/19 10:05 Dose: 20 mg Ondansetron HCl (Zofran Injection) 4 mg IVPUSH Q6H PRN PRN Reason: NAUSEA AND/OR VOMITING Pantoprazole Sodium (Protonix -) 40 mg PO DAILY [facility] Last Admin: 05/09/19 10:05 Dose: 40 mg Polyethylene Glycol (Miralax (For Daily Use) -) 17 gm PO DAILY [facility] Last Admin: 05/09/19 19:00 Dose: Not Given Simethicone (Mylicon -) 80 mg PO QID [facility] Last Admin: 05/09/19 22:11 Dose: 80 mg Sodium Chloride (Sodium Chloride Tablet -) 1 gm PO BID [facility] Last Admin: 05/09/19 22:12 Dose: 1 gm - Objective Vital Signs: Vital Signs Temperature 98.4 F 05/10/19 06:00 Pulse Rate 47 L 05/10/19 06:00 Respiratory Rate 18 05/10/19 06:00 Blood Pressure 121/57 L 05/10/19 06:00 O2 Sat by Pulse Oximetry (%) 97 05/09/19 21:00 Labs: CBC, BMP 05/09/19 07:45 05/09/19 07:45 INR, PTT INR 1.11 (0.83-1.09) H 05/08/19 08:15 <Valente Sousa - Last Filed: 05/10/19 07:32> Problem List - Problems (1) Abdominal pain Code(s): R10.9 - UNSPECIFIED ABDOMINAL PAIN Qualifiers: Abdominal location: epigastric Qualified Code(s): R10.13 - Epigastric pain <Jo Monzon - Last Filed: 05/08/19 08:00> - Problems (1) Abdominal pain Code(s): R10.9 - UNSPECIFIED ABDOMINAL PAIN Qualifiers: Abdominal location: epigastric Qualified Code(s): R10.13 - Epigastric pain (2) Hyponatremia Code(s): E87.1 - HYPO-OSMOLALITY AND HYPONATREMIA (3) Pituitary adenoma Code(s): D35.2 - BENIGN NEOPLASM OF PITUITARY GLAND <Valente Sousa - Last Filed: 05/10/19 07:32>
[2019-05-08 09:18] LABS: ALBUMIN 2.8 g/dl (3.4-5.0); BILIRUBIN,TOTAL 0.3 mg/dL (0.2-1); CALCIUM 8.5 mg/dL (8.5-10.1); CREATININE 0.8 mg/dL (0.55-1.3); INR 1.11 (0.83-1.09); POTASSIUM 4.2 mmol/L (3.5-5.1); PROTHROMBIN TIME (PATIENT) 13.1 SEC (9.7-13.0); TOT PROT 5.9 g/dl (6.4-8.2)
[2019-05-08 09:21] LABS: ACTIVATED PTT 33.1 SECONDS (25.2-36.5)
[2019-05-08] MEDS: SIMETHICONE 80 MG TAB.CHEW (FP) PO SCH ×4 (11:12→21:36)
[2019-05-08] MEDS: LISINOPRIL 20 MG TABLET (FP) PO SCH (11:12)
[2019-05-08] MEDS: PANTOPRAZOLE 40 MG TABLET PO SCH (11:12)
[2019-05-08] MEDS: HEPARIN NA (PORCINE) 5,000 UNITS/ML 1ML VIAL SQ SCH (11:13)
[2019-05-08] MEDS: SODIUM ZIRCONIUM CYCLOSILICATE (LOKELMA) 5 GM PACKET PO SCH (13:50)
--- NOTE | 2019-05-08 17:23 | PN ---
Progress Note, Physician History of Present Illness: Pt seen and examined at bedside. She is awake and alert. She had the biopsy done. - Current Medication List Current Medications: Active Medications Atorvastatin Calcium (Lipitor -) 20 mg PO HS [facility] Last Admin: 05/07/19 21:44 Dose: 20 mg Heparin Sodium (Porcine) (Heparin -) 5,000 unit SQ BID [facility] Last Admin: 05/08/19 11:13 Dose: Not Given Lisinopril (Prinivil) 20 mg PO DAILY [facility] Last Admin: 05/08/19 11:12 Dose: 20 mg Morphine Sulfate (Morphine Sulfate) 2 mg IVPUSH Q6H PRN PRN Reason: PAIN 5-10 Last Admin: 05/07/19 18:25 Dose: 2 mg Ondansetron HCl (Zofran Injection) 4 mg IVPUSH Q6H PRN PRN Reason: NAUSEA AND/OR VOMITING Pantoprazole Sodium (Protonix -) 40 mg PO DAILY [facility] Last Admin: 05/08/19 11:12 Dose: 40 mg Simethicone (Mylicon -) 80 mg PO QID [facility] Last Admin: 05/08/19 14:31 Dose: Not Given - Objective Vital Signs: Vital Signs Temperature 98.3 F 05/08/19 14:00 Pulse Rate 61 05/08/19 14:00 Respiratory Rate 18 05/08/19 14:00 Blood Pressure 140/78 05/08/19 14:00 O2 Sat by Pulse Oximetry (%) 100 05/08/19 12:30 Constitutional: Yes: Calm Eyes: Yes: Conjunctiva Clear HENT: Yes: Atraumatic Neck: Yes: Supple Cardiovascular: Yes: S1, S2 Respiratory: Yes: CTA Bilaterally Gastrointestinal: Yes: Soft Genitourinary: Yes: WNL Musculoskeletal: Yes: WNL Edema: No Neurological: Yes: Oriented Psychiatric: Yes: Oriented Labs: CBC, BMP 05/07/19 08:05 05/08/19 08:15 INR, PTT INR 1.11 (0.83-1.09) H 05/08/19 08:15 Problem List - Problems (1) Abdominal pain Code(s): R10.9 - UNSPECIFIED ABDOMINAL PAIN Qualifiers: Abdominal location: epigastric Qualified Code(s): R10.13 - Epigastric pain (2) GERD (gastroesophageal reflux disease) Code(s): K21.9 - GASTRO-ESOPHAGEAL REFLUX DISEASE WITHOUT ESOPHAGITIS (3) Hyponatremia Code(s): E87.1 - HYPO-OSMOLALITY AND HYPONATREMIA Assessment/Plan Current Medications Generic Name Dose Route Start Last Admin Trade Name Freq PRN Reason Stop Dose Admin Atorvastatin Calcium 20 mg 05/06/19 22:00 05/07/19 21:44 Lipitor - PO 20 mg HS [facility] Administration Heparin Sodium (Porcine) 5,000 unit 05/06/19 10:00 05/08/19 11:13 Heparin - SQ Not Given BID [facility] Lisinopril 20 mg 05/06/19 10:00 05/08/19 11:12 Prinivil PO 20 mg DAILY [facility] Administration Morphine Sulfate 2 mg 05/07/19 15:14 05/07/19 18:25 Morphine Sulfate IVPUSH 2 mg Q6H PRN Administration PAIN 5-10 Ondansetron HCl 4 mg 05/05/19 23:57 Zofran Injection IVPUSH Q6H PRN NAUSEA AND/OR VOMITING Pantoprazole Sodium 40 mg 05/06/19 10:00 05/08/19 11:12 Protonix - PO 40 mg DAILY [facility] Administration Simethicone 80 mg 05/06/19 22:00 05/08/19 14:31 Mylicon - PO Not Given QID [facility] Impression 1. hyponatremia 2. htn 3. vomiting 4. abd pain 5. abd wall mass 6. gerd 7. hld 8. hyperkalemia Plan - sodium has stabilized - can stop fluids - potassium normal - repeat labs in am - keep off of thiazide
[2019-05-08] MEDS: ATORVASTATIN CA 20 MG TABLET (FP) PO SCH (21:36)
--- NOTE | 2019-05-08 23:31 | PN ---
Progress Note, Physician History of Present Illness: Pt tolerating diet No vomiting - Current Medication List Current Medications: Active Medications Atorvastatin Calcium (Lipitor -) 20 mg PO HS [facility] Last Admin: 05/08/19 21:36 Dose: 20 mg Heparin Sodium (Porcine) (Heparin -) 5,000 unit SQ BID [facility] Last Admin: 05/08/19 11:13 Dose: Not Given Lisinopril (Prinivil) 20 mg PO DAILY [facility] Last Admin: 05/08/19 11:12 Dose: 20 mg Morphine Sulfate (Morphine Sulfate) 2 mg IVPUSH Q6H PRN PRN Reason: PAIN 5-10 Last Admin: 05/07/19 18:25 Dose: 2 mg Ondansetron HCl (Zofran Injection) 4 mg IVPUSH Q6H PRN PRN Reason: NAUSEA AND/OR VOMITING Pantoprazole Sodium (Protonix -) 40 mg PO DAILY [facility] Last Admin: 05/08/19 11:12 Dose: 40 mg Simethicone (Mylicon -) 80 mg PO QID [facility] Last Admin: 05/08/19 21:36 Dose: 80 mg - Objective Vital Signs: Vital Signs Temperature 99.2 F 05/08/19 18:00 Pulse Rate 65 05/08/19 18:00 Respiratory Rate 18 05/08/19 18:00 Blood Pressure 142/73 05/08/19 18:00 O2 Sat by Pulse Oximetry (%) 100 05/08/19 12:30 Cardiovascular: Yes: WNL, Regular Rate and Rhythm Respiratory: Yes: WNL, Regular, CTA Bilaterally Gastrointestinal: Yes: WNL, Normal Bowel Sounds, Soft Labs: CBC, BMP 05/07/19 08:05 05/08/19 08:15 INR, PTT INR 1.11 (0.83-1.09) H 05/08/19 08:15 Problem List - Problems (1) Abdominal pain Assessment/Plan: CT scan abd/spelvis done 05/03/19 and showed: Pelvic wall nodule/splenic aneurysm /adrenal adenoma Renal/bladder US showed Rt post abdominal wall mass S/P abdominal wall mass bx Spoke to pt's daughter and will await bx results for further management Cont protonix Simethicone added F/U as outpt for EGD Code(s): R10.9 - UNSPECIFIED ABDOMINAL PAIN Qualifiers: Abdominal location: epigastric Qualified Code(s): R10.13 - Epigastric pain (2) Hyponatremia Assessment/Plan: Renal US showed atrophic kidneys and ant post wall mass Cont to monitor NA+ levels Code(s): E87.1 - HYPO-OSMOLALITY AND HYPONATREMIA (3) HTN Assessment/Plan: Cont lisinopril Will dc hctz due to hyponatremia (4) GERD (gastroesophageal reflux disease) Code(s): K21.9 - GASTRO-ESOPHAGEAL REFLUX DISEASE WITHOUT ESOPHAGITIS (5) HLD (hyperlipidemia) Code(s): E78.5 - HYPERLIPIDEMIA, UNSPECIFIED (6) Pituitary adenoma Assessment/Plan: Radiology has dc'ed MRI and said it should be done as outpt Code(s): D35.2 - BENIGN NEOPLASM OF PITUITARY GLAND
[2019-05-09 04:16] LABS: CARCINOEMBRYONIC ANTIGEN 1.4 ng/mL (0.0-4.7)
[2019-05-09 08:26] LABS: BASO % 1.1 % (0-2.0); EOS % 1.9 % (0-4.5); HEMATOCRIT 35.3 % (32.4-45.2); LYMPH % 20.3 % (8-40); MCH 27.7 pg (25.7-33.7); MEAN CELL VOLUME 81.5 fl (80-96); MEAN PLT VOLUME 7.7 fl (7.5-11.1); MONO % 9.3 % (3.8-10.2); NEUT % 67.4 % (42.8-82.8); PLATELET COUNT 498 K/MM3 (134-434); RBC 4.33 M/mm3 (3.60-5.2); RDW 14.6 % (11.6-15.6); WHITE BLOOD COUNT 8.3 K/mm3 (4.0-10.0)
[2019-05-09 08:51] LABS: ALBUMIN 3.1 g/dl (3.4-5.0); BILIRUBIN,TOTAL 0.4 mg/dL (0.2-1); POTASSIUM 3.9 mmol/L (3.5-5.1); TOT PROT 6.2 g/dl (6.4-8.2)
[2019-05-09] MEDS: LISINOPRIL 20 MG TABLET (FP) PO SCH (10:05)
[2019-05-09] MEDS: SIMETHICONE 80 MG TAB.CHEW (FP) PO SCH ×4 (10:05→22:11)
[2019-05-09] MEDS: PANTOPRAZOLE 40 MG TABLET PO SCH (10:05)
[2019-05-09] MEDS: HEPARIN NA (PORCINE) 5,000 UNITS/ML 1ML VIAL SQ SCH ×2 (10:06→22:12)
[2019-05-09] MEDS ORDERED: ACETAMINOPHEN 325 MG TABLET (FP) PO PRN (14:42)
--- NOTE | 2019-05-09 15:23 | PN ---
Progress Note, Physician History of Present Illness: Pt seen and examined at bedside. She is awake and alert. She has poor PO intake however she is drinking water. - Current Medication List Current Medications: Active Medications Acetaminophen (Tylenol -) 650 mg PO Q6H PRN PRN Reason: PAIN Atorvastatin Calcium (Lipitor -) 20 mg PO HS [facility] Last Admin: 05/08/19 21:36 Dose: 20 mg Heparin Sodium (Porcine) (Heparin -) 5,000 unit SQ BID [facility] Last Admin: 05/09/19 10:06 Dose: 5,000 unit Lisinopril (Prinivil) 20 mg PO DAILY [facility] Last Admin: 05/09/19 10:05 Dose: 20 mg Ondansetron HCl (Zofran Injection) 4 mg IVPUSH Q6H PRN PRN Reason: NAUSEA AND/OR VOMITING Pantoprazole Sodium (Protonix -) 40 mg PO DAILY [facility] Last Admin: 05/09/19 10:05 Dose: 40 mg Polyethylene Glycol (Miralax (For Daily Use) -) 17 gm PO DAILY [facility] Simethicone (Mylicon -) 80 mg PO QID [facility] Last Admin: 05/09/19 15:14 Dose: 80 mg - Objective Vital Signs: Vital Signs Temperature 98.4 F 05/09/19 10:00 Pulse Rate 68 05/09/19 10:00 Respiratory Rate 18 05/09/19 10:00 Blood Pressure 120/68 05/09/19 10:00 O2 Sat by Pulse Oximetry (%) 95 05/09/19 09:00 Constitutional: Yes: Calm Eyes: Yes: Conjunctiva Clear HENT: Yes: Atraumatic Cardiovascular: Yes: S1, S2 Respiratory: Yes: CTA Bilaterally Gastrointestinal: Yes: Soft Genitourinary: Yes: WNL Musculoskeletal: Yes: WNL Edema: No Integumentary: Yes: WNL Neurological: Yes: Oriented Psychiatric: Yes: Oriented Labs: CBC, BMP 05/09/19 07:45 05/09/19 07:45 INR, PTT INR 1.11 (0.83-1.09) H 05/08/19 08:15 Problem List - Problems (1) Abdominal pain Code(s): R10.9 - UNSPECIFIED ABDOMINAL PAIN Qualifiers: Abdominal location: epigastric Qualified Code(s): R10.13 - Epigastric pain (2) GERD (gastroesophageal reflux disease) Code(s): K21.9 - GASTRO-ESOPHAGEAL REFLUX DISEASE WITHOUT ESOPHAGITIS (3) Hyponatremia Code(s): E87.1 - HYPO-OSMOLALITY AND HYPONATREMIA Assessment/Plan Current Medications Generic Name Dose Route Start Last Admin Trade Name Freq PRN Reason Stop Dose Admin Acetaminophen 650 mg 05/09/19 14:42 Tylenol - PO Q6H PRN PAIN Atorvastatin Calcium 20 mg 05/06/19 22:00 05/08/19 21:36 Lipitor - PO 20 mg HS [facility] Administration Heparin Sodium (Porcine) 5,000 unit 05/06/19 10:00 05/09/19 10:06 Heparin - SQ 5,000 unit BID [facility] Administration Lisinopril 20 mg 05/06/19 10:00 05/09/19 10:05 Prinivil PO 20 mg DAILY [facility] Administration Ondansetron HCl 4 mg 05/05/19 23:57 Zofran Injection IVPUSH Q6H PRN NAUSEA AND/OR VOMITING Pantoprazole Sodium 40 mg 05/06/19 10:00 05/09/19 10:05 Protonix - PO 40 mg DAILY [facility] Administration Polyethylene Glycol 17 gm 05/09/19 14:45 Miralax (For Daily Use) - PO DAILY [facility] Simethicone 80 mg 05/06/19 22:00 05/09/19 15:14 Mylicon - PO 80 mg QID [facility] Administration Impression 1. hyponatremia 2. htn 3. vomiting 4. abd pain 5. abd wall mass 6. gerd 7. hld 8. hyperkalemia Plan - sodium starting to drop again - will add salt tabs - follow biopsy results - restrict free water - repeat labs in am - encourage po intake - keep off of thiazide
[2019-05-09] MEDS: SODIUM CHLORIDE 1 GM TABLET PO SCH ×2 (16:29→22:12)
[2019-05-09] MEDS: POLYETHYLENE GLYCOL 3350 119 GM BTL PO SCH ×2 (16:29→19:00)
--- NOTE | 2019-05-09 18:06 | PATH ---
Surgical Pathology Report Patient Name: BENY MCDERMOTT Med. Rec. #: [id number] /Age/Gender: 1945 (Age: 73) / F Account: [id number] Location: [address] [place] [address]/[facility] Taken: 05/08/2019 Received: 05/08/2019 Reported: 05/09/2019 Physicians: Nicolás Shine M.D. Specimen(s) Received ANTERIOR ABDOMINAL MASS Clinical History 73 year old female status post DEBBI with a soft tissue mass in the anterior abdominal mass-near incision Postoperative diagnosis: Rule out malignancy Final Diagnosis ABDOMINAL MASS, ANTERIOR, CT GUIDED CORE BIOPSY: FRAGMENTS OF MATURE FIBROADIPOSE AND DENSE FIBROCONNECTIVE TISSUE WITH FOCAL MILD CHRONIC INFLAMMATION, RARE AMORPHOUS BASOPHILIC MATERIAL, AND RARE MACROPHAGES. NO ATYPIA, NECROSIS, OR MALIGNANCY IDENTIFIED. DEEPER LEVELS HAVE BEEN EXAMINED. Comment: The rare amorphous, basophilic material may represent foreign body material (e.g. suture). Suggest clinical and radiologic correlation. Electronically Signed Kay Posada M.D. Gross Description Received in formalin, labeled with the patient's name and indicated on the requisition to be from an abdominal mass, is a 0.5 x 0.3 x 0.1 cm aggregate of russ-yellow soft tissue fragments. The formalin is filtered and the specimen is entirely submitted in one cassette. /05/08/2019 [facility]05/08/2019
[2019-05-09] MEDS: ATORVASTATIN CA 20 MG TABLET (FP) PO SCH (22:11)
--- NOTE | 2019-05-09 23:27 | PN ---
Progress Note, Physician - Current Medication List Current Medications: Active Medications Acetaminophen (Tylenol -) 650 mg PO Q6H PRN PRN Reason: PAIN Last Admin: 05/09/19 16:30 Dose: 650 mg Atorvastatin Calcium (Lipitor -) 20 mg PO HS [facility] Last Admin: 05/09/19 22:11 Dose: 20 mg Heparin Sodium (Porcine) (Heparin -) 5,000 unit SQ BID [facility] Last Admin: 05/09/19 22:12 Dose: 5,000 unit Lisinopril (Prinivil) 20 mg PO DAILY [facility] Last Admin: 05/09/19 10:05 Dose: 20 mg Ondansetron HCl (Zofran Injection) 4 mg IVPUSH Q6H PRN PRN Reason: NAUSEA AND/OR VOMITING Pantoprazole Sodium (Protonix -) 40 mg PO DAILY [facility] Last Admin: 05/09/19 10:05 Dose: 40 mg Polyethylene Glycol (Miralax (For Daily Use) -) 17 gm PO DAILY [facility] Last Admin: 05/09/19 19:00 Dose: Not Given Simethicone (Mylicon -) 80 mg PO QID [facility] Last Admin: 05/09/19 22:11 Dose: 80 mg Sodium Chloride (Sodium Chloride Tablet -) 1 gm PO BID [facility] Last Admin: 05/09/19 22:12 Dose: 1 gm - Objective Vital Signs: Vital Signs Temperature 97.5 F L 05/09/19 20:00 Pulse Rate 57 L 05/09/19 20:00 Respiratory Rate 18 05/09/19 20:00 Blood Pressure 128/68 05/09/19 20:00 O2 Sat by Pulse Oximetry (%) 95 05/09/19 09:00 Labs: CBC, BMP 05/09/19 07:45 05/09/19 07:45 INR, PTT INR 1.11 (0.83-1.09) H 05/08/19 08:15 Problem List - Problems (1) Abdominal pain Code(s): R10.9 - UNSPECIFIED ABDOMINAL PAIN Qualifiers: Abdominal location: epigastric Qualified Code(s): R10.13 - Epigastric pain (2) Hyponatremia Code(s): E87.1 - HYPO-OSMOLALITY AND HYPONATREMIA (4) GERD (gastroesophageal reflux disease) Code(s): K21.9 - GASTRO-ESOPHAGEAL REFLUX DISEASE WITHOUT ESOPHAGITIS (5) HLD (hyperlipidemia) Code(s): E78.5 - HYPERLIPIDEMIA, UNSPECIFIED (6) Pituitary adenoma Code(s): D35.2 - BENIGN NEOPLASM OF PITUITARY GLAND
--- NOTE | 2019-05-10 07:42 | PN ---
Progress Note, Physician History of Present Illness: GI FOLLOW UP NOTE Patient examined and case discussed with Dr Sousa Patient continue to complain of dysphagia with solid food. She underwent US guided biopsy of anterior abdominal wall mass in RLQ. Abdomen is tender on palpation, denies nausea, vomiting, diarrhea, constipation, or melena. Labs show normal CEA, CA 19-9, Ca 125. Mild elevation to Alk Phos noted. - Current Medication List Current Medications: Active Medications Acetaminophen (Tylenol -) 650 mg PO Q6H PRN PRN Reason: PAIN Last Admin: 05/09/19 16:30 Dose: 650 mg Atorvastatin Calcium (Lipitor -) [address] [facility] Last Admin: 05/09/19 22:11 Dose: 20 mg Heparin Sodium (Porcine) (Heparin -) 5,[address] [facility] Last Admin: 05/09/19 22:12 Dose: 5,000 unit Lisinopril (Prinivil) [address] [facility] Last Admin: 05/09/19 10:05 Dose: 20 mg Ondansetron HCl (Zofran Injection) 4 mg IVPUSH Q6H PRN PRN Reason: NAUSEA AND/OR VOMITING Pantoprazole Sodium (Protonix -) [address] [facility] Last Admin: 05/09/19 10:05 Dose: 40 mg Polyethylene Glycol (Miralax (For Daily Use) -) [address] [facility] Last Admin: 05/09/19 19:00 Dose: Not Given Simethicone (Mylicon -) [address] [facility] Last Admin: 05/09/19 22:11 Dose: 80 mg Sodium Chloride (Sodium Chloride Tablet -) [address] [facility] Last Admin: 05/09/19 22:12 Dose: 1 gm - Objective Vital Signs: Vital Signs Temperature 98.4 F 05/10/19 06:00 Pulse Rate 47 L 05/10/19 06:00 Respiratory Rate 18 05/10/19 06:00 Blood Pressure 121/57 L 05/10/19 06:00 O2 Sat by Pulse Oximetry (%) 97 05/09/19 21:00 Constitutional: Yes: No Distress, Calm Eyes: Yes: Conjunctiva Clear HENT: Yes: Atraumatic Cardiovascular: Yes: Regular Rate and Rhythm Respiratory: Yes: Regular, CTA Bilaterally Gastrointestinal: Yes: Normal Bowel Sounds, Soft, Tenderness (diffuse), Tenderness, Epigastrium Neurological: Yes: Alert Psychiatric: Yes: Alert Labs: CBC, BMP 05/09/19 07:45 05/09/19 07:45 INR, PTT INR 1.11 (0.83-1.09) H 05/08/19 08:15 Problem List - Problems (1) Abdominal pain Assessment/Plan: Continue Pantoprazole daily Simethicone 80mg QID s/p US guided biopsy of RLQ mass, pending results of cytology patient is to follow up as outpatient for EGD Code(s): R10.9 - UNSPECIFIED ABDOMINAL PAIN Qualifiers: Abdominal location: epigastric Qualified Code(s): R10.13 - Epigastric pain
[2019-05-10 08:32] LABS: BILIRUBIN,TOTAL 0.4 mg/dL (0.2-1); BLOOD UREA NITROGEN 8.7 mg/dL (7-18); CREATININE 0.9 mg/dL (0.55-1.3); TOT PROT 6.1 g/dl (6.4-8.2)
[2019-05-10] MEDS ORDERED: SODIUM CHLORIDE 1,000 ML IV SCH (09:00)
[2019-05-10] MEDS: SIMETHICONE 80 MG TAB.CHEW (FP) PO SCH (10:18)
[2019-05-10] MEDS: HEPARIN NA (PORCINE) 5,000 UNITS/ML 1ML VIAL SQ SCH (10:18)
[2019-05-10] MEDS: PANTOPRAZOLE 40 MG TABLET PO SCH (10:19)
[2019-05-10] MEDS: SODIUM CHLORIDE 1 GM TABLET PO SCH (10:19)
[2019-05-10] MEDS: LISINOPRIL 20 MG TABLET (FP) PO SCH (10:19)
[2019-05-10] MEDS: POLYETHYLENE GLYCOL 3350 119 GM BTL PO SCH (10:19)
--- NOTE | 2019-05-10 11:40 | PN ---
Progress Note, Physician History of Present Illness: Had CT guided CNB of abdominal wall mass on 05/08/2019 Path: negtive for neoplastic process, fibroconnective tissue with mild inflammation - Current Medication List Current Medications: Active Medications Acetaminophen (Tylenol -) 650 mg PO Q6H PRN PRN Reason: PAIN Last Admin: 05/09/19 16:30 Dose: 650 mg Atorvastatin Calcium (Lipitor -) 20 mg PO HS [facility] Last Admin: 05/09/19 22:11 Dose: 20 mg Heparin Sodium (Porcine) (Heparin -) 5,000 unit SQ BID [facility] Last Admin: 05/10/19 10:18 Dose: 5,000 unit Sodium Chloride (Normal Saline -) 1,000 mls @ 50 mls/hr IV ASDIR [facility] Stop: 05/11/19 08:52 Last Admin: 05/10/19 11:07 Dose: 50 mls/hr Lisinopril (Prinivil) 20 mg PO DAILY [facility] Last Admin: 05/10/19 10:19 Dose: 20 mg Ondansetron HCl (Zofran Injection) 4 mg IVPUSH Q6H PRN PRN Reason: NAUSEA AND/OR VOMITING Pantoprazole Sodium (Protonix -) 40 mg PO DAILY [facility] Last Admin: 05/10/19 10:19 Dose: 40 mg Polyethylene Glycol (Miralax (For Daily Use) -) 17 gm PO DAILY [facility] Last Admin: 05/10/19 10:19 Dose: 17 gm Simethicone (Mylicon -) 80 mg PO QID [facility] Last Admin: 05/10/19 10:18 Dose: 80 mg Sodium Chloride (Sodium Chloride Tablet -) 1 gm PO BID [facility] Last Admin: 05/10/19 10:19 Dose: 1 gm - Objective Vital Signs: Vital Signs Temperature 98.4 F 05/10/19 06:00 Pulse Rate 47 L 05/10/19 06:00 Respiratory Rate 18 05/10/19 06:00 Blood Pressure 121/57 L 05/10/19 06:00 O2 Sat by Pulse Oximetry (%) 97 05/09/19 21:00 Gastrointestinal: Yes: Soft Labs: CBC, BMP 05/09/19 07:45 05/10/19 07:30 INR, PTT INR 1.11 (0.83-1.09) H 05/08/19 08:15 Problem List - Problems (1) Abdominal wall mass Assessment/Plan: Possible suture granuloma or mesh from previous incisional hernia repair, no evidence of neoplasm No intervention necessary at this time F/U prn Code(s): R22.2 - LOCALIZED SWELLING, MASS AND LUMP, TRUNK
[2019-05-10 12:12] VITALS: BP 122/66; PULSE 57; TEMP 98.5
--- NOTE | 2019-05-10 14:29 | PN ---
Progress Note, Physician History of Present Illness: Pt seen and examined at bedside. She is awake and alert. - Objective Vital Signs: Vital Signs Temperature 98.5 F 05/10/19 10:00 Pulse Rate 57 L 05/10/19 10:00 Respiratory Rate 18 05/10/19 10:00 Blood Pressure 122/66 05/10/19 10:00 O2 Sat by Pulse Oximetry (%) 98 05/10/19 09:00 Constitutional: Yes: Calm Eyes: Yes: Conjunctiva Clear HENT: Yes: Atraumatic Cardiovascular: Yes: S1, S2 Respiratory: Yes: CTA Bilaterally Gastrointestinal: Yes: Soft Genitourinary: Yes: WNL Musculoskeletal: Yes: WNL Edema: No Neurological: Yes: Oriented Psychiatric: Yes: Oriented Labs: CBC, BMP 05/09/19 07:45 05/10/19 07:30 INR, PTT INR 1.11 (0.83-1.09) H 05/08/19 08:15 Problem List - Problems (1) Abdominal pain Code(s): R10.9 - UNSPECIFIED ABDOMINAL PAIN Qualifiers: Abdominal location: epigastric Qualified Code(s): R10.13 - Epigastric pain (2) GERD (gastroesophageal reflux disease) Code(s): K21.9 - GASTRO-ESOPHAGEAL REFLUX DISEASE WITHOUT ESOPHAGITIS (3) Hyponatremia Code(s): E87.1 - HYPO-OSMOLALITY AND HYPONATREMIA Assessment/Plan Impression 1. hyponatremia 2. htn 3. vomiting 4. abd pain 5. abd wall mass 6. gerd 7. hld 8. hyperkalemia Plan - cont salt tabs - encourage po intake - restrict free water - monitor sodium - biopsy negative for malignancy - keep off of thiazide
--- NOTE | 2019-05-10 18:32 | CONSULT ---
Consult - text type - Consultation Consultation Note: NEUROSURGERY CONSULTATION Patient improving. Able to ambulate with cane. No contraindication to discharge from Neurosurgery Standpoint.
--- NOTE | 2019-05-10 23:22 | CONSULT ---
Consult - text type - Consultation Consultation Note: NEUROSURGERY CONSULTATION Miley Chen is a 73 year old Latin female who has a past medical history notable for HTN, HLD, GERD, Constipation and pituitary macroadenoma. Patient was admitted with a 2 week history of nausea and vomiting and a ten pound weight loss. Abdomenal CT identifies a soft tissue nodule within the Right anterior pelvic wall as well as a Left adrenal nodule and a 1 cm distal spenic artery aneurysm. Head CT revealed macroadenoma and this was confirmed on MRI. This exam demonstrated a 1.9 x 1.8 x 1.5 mm macroadenoma which just abuts the caudal aspect of the optic chiasm. Patient has no complaints of visual changes, recent visual difficulties, or peripheral vision difficulties. I discussed this case with the patient and her daughter. This is an incidental finding and semi- elective outpatient evaluation would be appropriate. I described this to the patient and her daughter. - Formal Visual cisneros and Ophthalmological evaluation - Endocrine evaluation of pituitary axis - Review of these results will allow determination of whether serial imaging/ observation versus treatment would be appropriate for this lesion. - No Neurosurgical contraindication to discharge
== END 2019-05-10 13:07 | disposition home or self-care (01) | DRG 394 ==
LOC: JER 15:16 → JERBED 16:40 → J5S 05-06 18:22
PROVIDERS: ADMIT Internal Medicine; ATTEND Internal Medicine
PROC: 0WBH3ZX Excision of Retroperitoneum, Percutaneous Approach, Diagnostic (ICD-10-PCS; principal; 2019-05-08)
DX: D20.1 Benign neoplasm of soft tissue of peritoneum (principal); E87.1 Hypo-osmolality and hyponatremia; K21.9 Gastro-esophageal reflux disease without esophagitis; I10 Essential (primary) hypertension; E78.5 Hyperlipidemia, unspecified; I44.0 Atrioventricular block, first degree; D35.2 Benign neoplasm of pituitary gland; E87.5 Hyperkalemia; R22.2 Localized swelling, mass and lump, trunk; E27.9 Disorder of adrenal gland, unspecified; I72.8 Aneurysm of other specified arteries
CPT/HCPCS: 36415; 49180; 76705-TC; 76775-TC; 76856-TC; 80048; 80053; 81003; 82378; 82436; 82533; 82550; 83605; 83690; 83930; 83935; 84133; 84300; 84443; 84484; 85025; 85610; 85730; 86301; 86304; 87086; 93005; 93010; 97116-GP; 97161-GP; 99285-25; J0131; J1644; J7030

== ENCOUNTER 2019-11-03 09:35 | Inpatient (IN) | payer OTHER ==
--- NOTE | 2019-11-03 11:29 | PDOC ---
History of Present Illness - General Chief Complaint: Vomiting/Diarrhea Stated Complaint: NAUSEA/VOMITING/DIARRHEA/COUGH Time Seen by Provider: 11/03/19 10:16 History Source: Patient Exam Limitations: No Limitations - History of Present Illness Initial Comments: 11/03/19 11:21 74yo female with a PMH of HTN, GERD, pituitary tumor, benign pelvic wall mass p/w diarrhea for one day. She states she has had 6 episodes of watery diarrhea every 2 hours since yesterday afternoon. One episode of NBNB emesis yesterday, and nausea, since resolved. Complains of "chills" and requests blanket. Also complains of dysuria. Complains of decreased appetite for several weeks. Denies fever, chest pain, abdominal pain. ROS GENERAL/CONSTITUTIONAL: +chills. No fever. No weakness. HEAD, EYES, EARS, NOSE AND THROAT: No change in vision. No ear pain or discharge. No sore throat. CARDIOVASCULAR: No chest pain or shortness of breath RESPIRATORY: No cough, wheezing, or hemoptysis. GASTROINTESTINAL: +nausea, vomiting, diarrhea, decreased appetite GENITOURINARY: + dysuria, no hematuria or polyuria MUSCULOSKELETAL: No joint or muscle swelling or pain. No neck or back pain. SKIN: No rash NEUROLOGIC: No headache, vertigo, loss of consciousness, or change in strength/sensation. ENDOCRINE: No increased thirst. No abnormal weight change HEMATOLOGIC/LYMPHATIC: No anemia, easy bleeding, or history of blood clots. ALLERGIC/IMMUNOLOGIC: No hives or skin allergy. PE GENERAL: Awake, alert, and fully oriented, in no acute distress HEAD: No signs of trauma, normocephalic, atraumatic EYES: PERRLA, EOMI, sclera anicteric, conjunctiva clear ENT: Auricles normal inspection, hearing grossly normal, nares patent, oropharynx clear without exudates. Moist mucosa NECK: Normal ROM, supple, no lymphadenopathy, JVD, or masses LUNGS: No distress, speaks full sentences, clear to auscultation bilaterally HEART: Regular rate and rhythm, normal S1 and S2, no murmurs, rubs or gallops, peripheral pulses normal and equal bilaterally. ABDOMEN: Soft, diffusely tender to palpation, hyperactive bowel sounds. No guarding, no rebound. EXTREMITIES : Normal inspection, Normal range of motion, no edema. No clubbing or cyanosis. NEUROLOGICAL: Cranial nerves II through XII grossly intact. Normal speech, no focal sensorimotor deficits SKIN: Warm, Dry, normal turgor, no rashes or lesions noted Vital Signs Temp Pulse Resp BP Pulse Ox 98.3 F 69 18 106/63 99 11/03/19 09:38 11/03/19 09:38 11/03/19 09:38 11/03/19 09:38 11/03/19 09:38 MDM: 74yo female with a PMH of HTN, GERD, pituitary tumor, benign pelvic wall mass p/w diarrhea for one day. Also one episode of NBNB emesis yesterday and weeks of decreased appetite. Differential includes gastroenteritis, diverticulitis, obstruction, UTI. -labs -CT A/P 11/03/19 16:15 CT A/P negative for acute process labs notable for Na 129, BUN/Cr 22.1/1.4, AST 54, alk phos 309 Admit for TANNER Signed out to admitting attending Past History - Medical History Allergies/Adverse Reactions: Allergies Allergy/AdvReac Type Severity Reaction Status Date / Time ibuprofen [From Motrin] Allergy Intermediate Rash Verified 11/03/19 09:41 pineapple Allergy Verified 11/03/19 09:41 Home Medications: Ambulatory Orders Pantoprazole Sodium [Protonix] 40 mg PO DAILY 05/07/19 Donepezil HCl 5 mg PO DAILY 05/08/19 Acetaminophen [Tylenol .Regular Strength -] 650 mg PO Q6H PRN tablet 05/10/19 Atorvastatin Ca [Lipitor] 20 mg PO HS tablet 05/10/19 Lisinopril [Prinivil] 20 mg PO DAILY #30 tablet 05/10/19 Pantoprazole Sodium [Protonix -] 40 mg PO DAILY #30 tablet.ec 05/10/19 Polyethylene Glycol 3350 [Miralax 119 gm Btl -] 17 gm PO DAILY #1 bottle 05/10/19 Simethicone [Mylicon -] 80 mg PO QID #100 tab.chew 05/10/19 COPD: No GI Disorders: Yes (GERD) HTN: Yes Hypercholesterolemia: Yes - Surgical History Abdominal Surgery: Yes (hernia,colon sx) - Psycho-Social/Smoking History Smoking Status: No Smoking History: Never smoked Have you smoked in the past 12 months: No Number of Cigarettes Smoked Daily: 0 *Physical Exam - Vital Signs Last Vital Signs Temp Pulse Resp BP Pulse Ox 98.3 F 69 18 106/63 99 11/03/19 09:38 11/03/19 09:38 11/03/19 09:38 11/03/19 09:38 11/03/19 09:38 ED Treatment Course - LABORATORY CBC & Chemistry Diagram: 11/03/19 10:35 11/03/19 10:35 - RADIOLOGY Radiology Studies Ordered: Category Date Time Status ABDOMEN & PELVIS CT WITH CONTR [CT] Stat CT Scan 11/03/19 11:05 Ordered Discharge - Discharge Information Problems reviewed: Yes Clinical Impression/Diagnosis: Hyponatremia, TANNER (acute kidney injury) - Follow up/Referral Referrals: Woo Reyes MD [Primary Care Provider] - - Patient Discharge Instructions - Post Discharge Activity
[2019-11-03 12:17] LABS: BASO % 1.4 % (0-2.0); EOS % 0.3 % (0-4.5); HEMATOCRIT 32.9 % (32.4-45.2); HEMOGLOBIN 10.9 GM/dL (10.7-15.3); LYMPH % 15.3 % (8-40); MCH 26.6 pg (25.7-33.7); MEAN CELL VOLUME 80.6 fl (80-96); MEAN PLT VOLUME 8.9 fl (7.5-11.1); MONO % 12.4 % (3.8-10.2); NEUT % 70.6 % (42.8-82.8); PLATELET COUNT 319 K/MM3 (134-434); RBC 4.08 M/mm3 (3.60-5.2); RDW 14.7 % (11.6-15.6); WHITE BLOOD COUNT 7.2 K/mm3 (4.0-10.0)
[2019-11-03 12:52] LABS: ALBUMIN 3.4 g/dl (3.4-5.0); ALK PHOS 309 U/L (45-117); ANION GAP 12 MMOL/L (8-16); BLOOD UREA NITROGEN 22.1 mg/dL (7-18); CALCIUM 9.3 mg/dL (8.5-10.1); CHLORIDE 96 mmol/L (98-107); CO2 22 mmol/L (21-32); CREATININE 1.4 mg/dL (0.55-1.3); GLUCOSE,RANDOM 78 mg/dL (74-106); LIPASE 264 U/L (73-393); POTASSIUM 5.1 mmol/L (3.5-5.1); SGOT/AST 54 U/L (15-37); SGPT/ALT 36 U/L (13-61); SODIUM 129 mmol/L (136-145); TOT PROT 7.3 g/dl (6.4-8.2)
[2019-11-03] MEDS ORDERED: LACTATED RINGERS SOLUTION 1,000 ML/1,000 ML INFUS.BAG IV STA (13:02)
[2019-11-03 13:06] LABS: BILIRUBIN,TOTAL 0.5 mg/dL (0.2-1)
[2019-11-03 14:40] LABS: EPI CELLS 13 /uL (0-25.1); HYALINE CASTS 2 /uL (0-3.1); URINE APPEARANCE Error; URINE BACTERIA 24 /uL (0-1359); URINE BILIRUBIN NEGATIVE (NEGATIVE); URINE COLOR YELLOW; URINE GLUCOSE (UA) NEGATIVE (NEGATIVE); URINE KETONE NEGATIVE (NEGATIVE); URINE LEUK ESTERASE TRACE (NEGATIVE); URINE NITRITE NEGATIVE (NEGATIVE); URINE PROTEIN TRACE (NEGATIVE); URINE RBC 6 /uL (0-23.9); URINE UROBILINOGEN 0.2 mg/dL (0.2-1.0); URINE WBC 18 /uL (0-25.8)
--- NOTE | 2019-11-03 15:19 | PDOC ---
Documentation entered by Avani Hays SCRIBE, acting as scribe for Ceci Solo MD. Ceci Solo MD: This documentation has been prepared by the tamaraeSaúl Ana, SCRIBE, under my direction and personally reviewed by me in its entirety. I confirm that the documentation accurately reflects all work, treatment, procedures, and medical decision making performed by me. Attending Attestation - Resident Resident Name: Irvin Carlin - ED Attending Attestation I have performed the following: I have examined & evaluated the patient, The case was reviewed & discussed with the resident, I agree w/resident's findings & plan, Exceptions are as noted - HPI HPI: 11/03/19 10:50 Patient is a 74 year old female with a significant past medical history of hypertension, GERD, pituitary tumor, and benign pelvic wall mass, who presents to the ED with diarrhea x1 day. Patient stated she had about 6 episodes of "water diarrhea" approximately ever 2 hours since the onset of her symptoms yesterday. Patient also reports she had nausea and one epsiode of NBNB vomiting which has resolved on its own. Patient endorses: chills - requests blankets, dysuria and decreased appetite x several weeks. Patient denies: fever, chest pain, abdominal pain, or any other related symptoms. Allergies: ibuprofen, pineapples . Discharge - Follow up/Referral Referrals: Woo Reyes MD [Primary Care Provider] - - Patient Discharge Instructions - Post Discharge Activity
--- NOTE | 2019-11-03 17:00 | HP ---
Admitting History and Physical - Primary Care Physician PCP: Woo Reyes - Admission Chief Complaint: Nausea abdominal pain with diarrhea History of Present Illness: 74-year-old frail female, lives at home with history of hypertension, GERD, nonfunctioning pituitary adenoma, benign mass on anterior pelvic wall, previously worked up for unintentional weight loss and pelvic mass, in April 2019 seen by GI, neurosurgery, patient has been doing well today present with acute onset nausea abdominal pain and diarrhea, on arrival to ED patient was dehydrated, had 6-7 loose watery stool not any blood or mucus, no history of bleeding out for treatment, no complaint of fever chills, in the ED blood work- up shows dehydration with TANNER, hyponatremia, CT abdomen shows no interval changes, patient has lost 8 pounds unintentional weight since April 2019 from 103 pounds to 95 pounds. 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: Other (Pituitary adenoma) Cardiovascular: Yes: HTN, Hyperlipdemia Gastrointestinal: Yes: GERD - Past Surgical History Past Surgical History: Yes: Hysterectomy - Smoking History Smoking history: Never smoked Have you smoked in the past 12 months: No Aproximately how many cigarettes per day: 0 - Alcohol/Substance Use Hx Alcohol Use: No - Social History History of Recent Travel: No Home Medications - Allergies Allergies/Adverse Reactions: Allergies Allergy/AdvReac Type Severity Reaction Status Date / Time ibuprofen [From Motrin] Allergy Intermediate Rash Verified 11/03/19 09:41 pineapple Allergy Verified 11/03/19 09:41 - Home Medications Home Medications: Ambulatory Orders Donepezil HCl 5 mg PO DAILY 05/08/19 Acetaminophen [Tylenol .Regular Strength -] 650 mg PO Q6H PRN tablet 05/10/19 Atorvastatin Ca [Lipitor] 20 mg PO HS tablet 05/10/19 Lisinopril [Prinivil] 20 mg PO DAILY #30 tablet 05/10/19 Pantoprazole Sodium [Protonix -] 40 mg PO DAILY #30 tablet.ec 05/10/19 Polyethylene Glycol 3350 [Miralax 119 gm Btl -] 17 gm PO DAILY #1 bottle 05/10/19 Simethicone [Mylicon -] 80 mg PO QID #100 tab.chew 05/10/19 Family Medical History Family Hx Diabetes: Mother, Father Review of Systems - Review of Systems Constitutional: denies: Chills, Diaphoresis, Fever, Lethargy Eyes: denies: Blind Spots, Blurred Vision, Double Vision HENT: denies: Difficult Swallowing, Ear Discharge, Ear Pain, Epistaxis Neck: denies: Decreased ROM, Lumps, Pain on Movement, Stiffness Cardiovascular: denies: Chest Pain, Edema, Palpitations, Shortness of Breath Respiratory: denies: Cough, Exercise Intolerance, Hemoptysis, Orthopnea Gastrointestinal: reports: Abdominal Pain, Diarrhea, Nausea. denies: Bloating, Constipation, Indigestion, Melena, Rectal Bleeding, Vomiting, Vomiting Blood Genitourinary: denies: Burning, Discharge, Dysuria Musculoskeletal: denies: Back Pain, Crepitus, Decreased ROM Integumentary: denies: Blister, Bruising, Change in Color Endocrine: denies: Excessive Sweating, Flushing, Increased Hunger Hematology/Lymphatic: denies: Easily Bruised, Excessive Bleeding, Swollen Glands Psychiatric: denies: Altered Sleep Pattern, Anxiety, Depression Physical Examination Vital Signs: Vital Signs Temperature 98.2 F 11/03/19 16:00 Pulse Rate 55 L 11/03/19 16:00 Respiratory Rate 16 11/03/19 16:00 Blood Pressure 152/74 11/03/19 16:00 O2 Sat by Pulse Oximetry (%) 100 11/03/19 16:00 General: Elderly woman, complaint of abdominal pain , not in distress HEENT mucous membranes moist, no anemia, no jaundice, PERRLA, no nystagmus Neck: No JVD, supple, no bruit, thyroid palpably normal, normal carotid pulsations. Chest: Nontender, clear to auscultation bilaterally CVS: S1-S2 regular no murmur/gallop/rub Abdomen: Nondistended, soft, bowel sounds present. Extremities: No edema., No Calf tenderness, pulses present [employer] MARKETING COORDINATOR: AO X3 , no gross motor sensory deficit Labs: CBC,CMP WBC 7.2 K/mm3 (4.0-10.0) 11/03/19 10:35 RBC 4.08 M/mm3 (3.60-5.2) 11/03/19 10:35 Hgb 10.9 GM/dL (10.7-15.3) 11/03/19 10:35 Hct 32.9 % (32.4-45.2) 11/03/19 10:35 MCV 80.6 fl (80-96) 11/03/19 10:35 MCH 26.6 pg (25.7-33.7) 11/03/19 10:35 MCHC 33.0 g/dl (32.0-36.0) 11/03/19 10:35 RDW 14.7 % (11.6-15.6) 11/03/19 10:35 Plt Count 319 K/MM3 (134-434) D 11/03/19 10:35 MPV 8.9 fl (7.5-11.1) D 11/03/19 10:35 Absolute Neuts (auto) 5.0 K/mm3 (1.5-8.0) 11/03/19 10:35 Neutrophils % 70.6 % (42.8-82.8) 11/03/19 10:35 Lymphocytes % 15.3 % (8-40) D 11/03/19 10:35 Monocytes % 12.4 % (3.8-10.2) H 11/03/19 10:35 Eosinophils % 0.3 % (0-4.5) D 11/03/19 10:35 Basophils % 1.4 % (0-2.0) 11/03/19 10:35 Nucleated RBC % 0 % (0-0) 11/03/19 10:35 Sodium 129 mmol/L (136-145) L 11/03/19 10:35 Potassium 5.1 mmol/L (3.5-5.1) 11/03/19 10:35 Chloride 96 mmol/L (98-107) L 11/03/19 10:35 Carbon Dioxide 22 mmol/L (21-32) 11/03/19 10:35 Anion Gap 12 MMOL/L (8-16) 11/03/19 10:35 BUN 22.1 mg/dL (7-18) H 11/03/19 10:35 Creatinine 1.4 mg/dL (0.55-1.3) H 11/03/19 10:35 Est GFR (CKD-EPI)AfAm 43.40 11/03/19 10:35 Est GFR (CKD-EPI)NonAf 37.44 11/03/19 10:35 Random Glucose 78 mg/dL (74-106) 11/03/19 10:35 Lactic Acid 0.8 mmol/L (0.4-2.0) 11/03/19 10:35 Calcium 9.3 mg/dL (8.5-10.1) 11/03/19 10:35 Total Bilirubin 0.5 mg/dL (0.2-1) 11/03/19 10:35 AST 54 U/L (15-37) H 11/03/19 10:35 ALT 36 U/L (13-61) 11/03/19 10:35 Alkaline Phosphatase 309 U/L (45-117) H 11/03/19 10:35 Troponin I < 0.02 ng/ml (0.00-0.05) 11/03/19 10:35 Total Protein 7.3 g/dl (6.4-8.2) 11/03/19 10:35 Albumin 3.4 g/dl (3.4-5.0) 11/03/19 10:35 Lipase 264 U/L (73-393) 11/03/19 10:35 Imaging - Results Cat Scan: Report Reviewed (Abdomen: No acute intra-abdominal process pelvic mass stable, no interval changes) EKG: Report Reviewed (Normal sinus rhythm 54 QTC 434 sinus bradycardia) Problem List - Problems (1) TANNER (acute kidney injury) Assessment/Plan: Due to nausea and vomiting, continue IV normal saline follow-up BMP in the morning Problems reviewed: Yes Code(s): N17.9 - ACUTE KIDNEY FAILURE, UNSPECIFIED (2) Hyponatremia Assessment/Plan: Most likely hypovolemic hyponatremia mild, follow-up urine leg and BMP in the morning urine and plasma osmolality, considering weight loss and, skin tenting will screen for adrenal insufficiency Problems reviewed: Yes Code(s): E87.1 - HYPO-OSMOLALITY AND HYPONATREMIA (3) Abdominal pain Assessment/Plan: Present with acute onset diarrhea abdominal pain, improving, will start diet as tolerates, pain control, IV hydration, CT abdomen shows no acute changes. Lipase is normal. LFTs are normal., Few WBC in the urine will defer any antibiotic follow-up urine culture Problems reviewed: Yes Code(s): R10.9 - UNSPECIFIED ABDOMINAL PAIN (4) HTN Assessment/Plan: Continue all home medications (5) Abdominal wall mass Assessment/Plan: Stable follow-up as an outpatient,, last EGD and colonoscopy in 2017, seen by Dr. Sousa during previous hospitalization if no improvement consider GI consult Problems reviewed: Yes Code(s): R22.2 - LOCALIZED SWELLING, MASS AND LUMP, TRUNK (6) Pituitary adenoma Assessment/Plan: For years denies any visual changes, follow-up TSH and serum cortisol level Problems reviewed: Yes Code(s): D35.2 - BENIGN NEOPLASM OF PITUITARY GLAND (7) GERD (gastroesophageal reflux disease) Assessment/Plan: Continue PPI Problems reviewed: Yes Code(s): K21.9 - GASTRO-ESOPHAGEAL REFLUX DISEASE WITHOUT ESOPHAGITIS (8) hyperlipidemai Assessment/Plan: Continue statin Problems reviewed: Yes
[2019-11-03] MEDS ORDERED: PANTOPRAZOLE SODIUM 40 MG VIAL ONE (17:13)
[2019-11-03] MEDS: PANTOPRAZOLE SODIUM 40 MG VIAL IVPUSH SCH (17:33)
--- NOTE | 2019-11-03 17:48 | EKG ---
Test Reason : Blood Pressure : / mmHG Vent. Rate : 054 BPM Atrial Rate : 054 BPM P-R Int : 196 ms QRS Dur : 082 ms QT Int : 458 ms P-R-T Axes : 040 017 041 degrees QTc Int : 434 ms SINUS BRADYCARDIA OTHERWISE NORMAL ECG WHEN COMPARED WITH ECG OF 05-MAY-2019 17:33, NO SIGNIFICANT CHANGE WAS FOUND Confirmed by MD HUANG MOYSES ([id number]) on 11/03/2019 5:48:28 PM Referred By: Confirmed By:JORDAN HUANG MD
[2019-11-03] MEDS: SODIUM CHLORIDE 1,000 ML IV SCH (17:59)
[2019-11-03] MEDS ORDERED: ATORVASTATIN CA 20 MG TABLET (FP) ONE (20:51)
[2019-11-03] MEDS: ATORVASTATIN CA 20 MG TABLET (FP) PO SCH (21:12)
[2019-11-04] MEDS: SODIUM CHLORIDE 1,000 ML IV SCH ×2 (08:00→21:47)
[2019-11-04 08:45] LABS: BASO % 1.3 % (0-2.0); EOS % 0.3 % (0-4.5); HEMATOCRIT 28.6 % (32.4-45.2); HEMOGLOBIN 9.5 GM/dL (10.7-15.3); LYMPH % 16.5 % (8-40); MCH 26.5 pg (25.7-33.7); MCHC 33.3 g/dl (32.0-36.0); MEAN CELL VOLUME 79.7 fl (80-96); MEAN PLT VOLUME 8.3 fl (7.5-11.1); MONO % 12.6 % (3.8-10.2); NEUT % 69.3 % (42.8-82.8); PLATELET COUNT 313 K/MM3 (134-434); RBC 3.58 M/mm3 (3.60-5.2); RDW 15.1 % (11.6-15.6); WHITE BLOOD COUNT 7.3 K/mm3 (4.0-10.0)
[2019-11-04 09:14] LABS: BLOOD UREA NITROGEN 18.6 mg/dL (7-18); CALCIUM 8.9 mg/dL (8.5-10.1); CREATININE 1.1 mg/dL (0.55-1.3); MAGNESIUM 2.5 mg/dL (1.8-2.4); POTASSIUM 5.1 mmol/L (3.5-5.1)
[2019-11-04] MEDS ORDERED: DONEPEZIL HCL 5 MG TABLET (FP) ONE (09:35)
[2019-11-04] MEDS ORDERED: LISINOPRIL 20 MG TABLET (FP) ONE (09:37)
[2019-11-04] MEDS ORDERED: PANTOPRAZOLE SODIUM 40 MG VIAL ONE (09:38)
[2019-11-04] MEDS: PANTOPRAZOLE SODIUM 40 MG VIAL IVPUSH SCH (10:01)
[2019-11-04] MEDS: DONEPEZIL HCL 5 MG TABLET (FP) PO SCH (10:01)
[2019-11-04] MEDS: LISINOPRIL 20 MG TABLET (FP) PO SCH (10:01)
[2019-11-04 12:35] LABS: MAGNESIUM 2.6 mg/dL (1.8-2.4); PHOSPHOROUS 4.4 mg/dL (2.5-4.9)
[2019-11-04 18:41] VITALS: BMI 19.5
--- NOTE | 2019-11-04 21:46 | PN ---
Progress Note, Physician History of Present Illness: No further diarrhea Pt tolerating diet - Current Medication List Current Medications: Active Medications Atorvastatin Calcium (Lipitor -) 20 mg PO HS [facility] Last Admin: 11/03/19 21:12 Dose: 20 mg Documented by: Donepezil HCl (Aricept -) 5 mg PO DAILY [facility] Last Admin: 11/04/19 10:01 Dose: 5 mg Documented by: Sodium Chloride (Normal Saline -) 1,000 mls @ 100 mls/hr IV ASDIR [facility] Last Admin: 11/04/19 08:00 Dose: 100 mls/hr Documented by: Lisinopril (Prinivil) 20 mg PO DAILY [facility] Last Admin: 11/04/19 10:01 Dose: 20 mg Documented by: Ondansetron HCl (Zofran Injection) 4 mg IVPUSH Q6H PRN PRN Reason: NAUSEA Pantoprazole Sodium (Protonix Iv) 40 mg IVPUSH DAILY [facility] Last Admin: 11/04/19 10:01 Dose: 40 mg Documented by: - Objective Vital Signs: Vital Signs Temperature 97.9 F 11/04/19 18:35 Pulse Rate 53 L 11/04/19 18:35 Respiratory Rate 20 11/04/19 21:00 Blood Pressure 111/60 11/04/19 18:35 O2 Sat by Pulse Oximetry (%) 97 11/04/19 21:00 Neck: Yes: WNL, Supple Cardiovascular: Yes: WNL, Regular Rate and Rhythm Respiratory: Yes: WNL, Regular, CTA Bilaterally Gastrointestinal: Yes: WNL, Normal Bowel Sounds, Soft Labs: CBC, BMP 11/04/19 08:15 11/04/19 08:15 Problem List - Problems (1) TANNER (acute kidney injury) Assessment/Plan: Improved w/ IV hydration Due to dehydration Code(s): N17.9 - ACUTE KIDNEY FAILURE, UNSPECIFIED (2) Hyponatremia Assessment/Plan: Improved w/ IV hydration Code(s): E87.1 - HYPO-OSMOLALITY AND HYPONATREMIA (3) Pituitary adenoma Assessment/Plan: TSH is normal Cortisol level pending Code(s): D35.2 - BENIGN NEOPLASM OF PITUITARY GLAND (4) HTN Assessment/Plan: BP stable Cont lisinopril (5) Hyperlipidemia Assessment/Plan: Cont lipitor Code(s): E78.5 - HYPERLIPIDEMIA, UNSPECIFIED (6) Dementia Code(s): F03.90 - UNSPECIFIED DEMENTIA WITHOUT BEHAVIORAL DISTURBANCE
[2019-11-04] MEDS: ATORVASTATIN CA 20 MG TABLET (FP) PO SCH (21:47)
[2019-11-04] MEDS: ONDANSETRON 4 MG/2 ML VIAL IVPUSH PRN (23:40)
[2019-11-05] MEDS ORDERED: SODIUM CHLORIDE 250 ML IV ONE (02:30)
[2019-11-05] MEDS: SODIUM CHLORIDE 1,000 ML IV SCH ×3 (08:07→19:32)
[2019-11-05] MEDS: LISINOPRIL 20 MG TABLET (FP) PO SCH (10:03)
[2019-11-05] MEDS: DONEPEZIL HCL 5 MG TABLET (FP) PO SCH (10:19)
[2019-11-05] MEDS: PANTOPRAZOLE SODIUM 40 MG VIAL IVPUSH SCH (10:19)
--- NOTE | 2019-11-05 14:13 | CON.GI ---
Consult Consult Specialty:: GI - History of Present Illness History of Present Illness: 74-year-old frail female, lives at home with history of hypertension, GERD, nonfunctioning pituitary adenoma, benign mass on anterior pelvic wall, previously worked up for unintentional weight loss and pelvic mass, in April 2019 seen by GI, neurosurgery, patient has been doing well today present with acute onset nausea abdominal pain and diarrhea, on arrival to ED patient was dehydrated, had 6-7 loose watery stool not any blood or mucus, no history of bleeding out for treatment, no complaint of fever chills, in the ED blood work- up shows dehydration with TANNER, hyponatremia, CT abdomen shows no interval changes, patient has lost 8 pounds unintentional weight since April 2019 from 103 pounds to 95 pounds. At the time of examination abdominal pain improved denies any diet diarrhea or vomiting She was admitted with nausea vomiting diarrhea weight loss . She has been taking Aricept for a long time S/p EGD and colonoscopy which revealed mild gastritis and redundant sigmoid. 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: Other (Pituitary adenoma) Cardio/Vascular: Yes: HTN, Hyperlipdemia Gastrointestinal: Yes: GERD ...: No - Past Surgical History Past Surgical History: Yes: Hysterectomy - Alcohol/Substance Use Hx Alcohol Use: No - Smoking History Smoking history: Never smoked Have you smoked in the past 12 months: No Aproximately how many cigarettes per day: 0 - Social History History of Recent Travel: No Home Medications - Allergies Allergies/Adverse Reactions: Allergies Allergy/AdvReac Type Severity Reaction Status Date / Time ibuprofen [From Motrin] Allergy Intermediate Rash Verified 11/03/19 09:41 pineapple Allergy Verified 11/03/19 09:41 - Home Medications Home Medications: Ambulatory Orders Donepezil HCl 5 mg PO DAILY 05/08/19 Acetaminophen [Tylenol .Regular Strength -] 650 mg PO Q6H PRN tablet 05/10/19 Atorvastatin Ca [Lipitor] 20 mg PO HS tablet 05/10/19 Lisinopril [Prinivil] 20 mg PO DAILY #30 tablet 05/10/19 Pantoprazole Sodium [Protonix -] 40 mg PO DAILY #30 tablet.ec 05/10/19 Polyethylene Glycol 3350 [Miralax 119 gm Btl -] 17 gm PO DAILY #1 bottle 02/21/20 Simethicone [Mylicon -] 80 mg PO QID #100 tab.chew 05/10/19 Family Medical History Family Hx Diabetes: Mother, Father Physical Exam-GI Vital Signs: Vital Signs Temperature 97.5 F L 11/05/19 14:01 Pulse Rate 65 11/05/19 14:01 Respiratory Rate 20 11/05/19 14:01 Blood Pressure 88/54 L 11/05/19 14:01 O2 Sat by Pulse Oximetry (%) 96 11/05/19 14:01 Constitutional: Yes: No Distress Eyes: Yes: Conjunctiva Clear HENT: Yes: Atraumatic Neck: Yes: Supple Cardiovascular: Yes: Regular Rate and Rhythm ...Palpate: Yes: Soft. No: Firm/Rigid, Guarding, Hepatomegaly, Mass, Pulsatile Mass, Tenderness Labs: CBC, BMP 11/04/19 08:15 11/04/19 08:15 CBCD WBC 8.6 K/mm3 (4.0-10.0) 11/05/19 18:30 RBC 4.21 M/mm3 (3.60-5.2) 11/05/19 18:30 Hgb 11.1 GM/dL (10.7-15.3) 11/05/19 18:30 Hct 34.4 % (32.4-45.2) D 11/05/19 18:30 MCV 81.7 fl (80-96) 11/05/19 18:30 MCHC 32.3 g/dl (32.0-36.0) 11/05/19 18:30 RDW 15.4 % (11.6-15.6) 11/05/19 18:30 Plt Count 405 K/MM3 (134-434) D 11/05/19 18:30 MPV 8.2 fl (7.5-11.1) 11/05/19 18:30 CMP Sodium 135 mmol/L (136-145) L 11/05/19 19:30 Potassium 5.1 mmol/L (3.5-5.1) 11/05/19 19:30 Chloride 108 mmol/L (98-107) H 11/05/19 19:30 Carbon Dioxide 15 mmol/L (21-32) L 11/05/19 19:30 Anion Gap 12 MMOL/L (8-16) 11/05/19 19:30 BUN 31.2 mg/dL (7-18) H 11/05/19 19:30 Creatinine 2.4 mg/dL (0.55-1.3) H 11/05/19 19:30 Calcium 8.0 mg/dL (8.5-10.1) L 11/05/19 19:30 Total Bilirubin 0.3 mg/dL (0.2-1) 11/05/19 19:30 AST 22 U/L (15-37) 11/05/19 19:30 ALT 16 U/L (13-61) 11/05/19 19:30 Alkaline Phosphatase 165 U/L (45-117) H 11/05/19 19:30 Total Protein 5.0 g/dl (6.4-8.2) L 11/05/19 19:30 Albumin 2.2 g/dl (3.4-5.0) L 11/05/19 19:30 Problem List - Problems (1) Intractable nausea and vomiting Assessment/Plan: multifactorial including seconadry to aricept and pituitary adenoam R> neurology consult observe off aricept as all symptoms including weight loss is secondary to this medication add Reglan 5mg 30 min AC Code(s): R11.2 - NAUSEA WITH VOMITING, UNSPECIFIED
--- NOTE | 2019-11-05 16:42 | PN ---
Progress Note, Physician Chief Complaint: c/o nausea small bm ...soft History of Present Illness: doing well - Current Medication List Current Medications: Active Medications Atorvastatin Calcium (Lipitor -) 20 mg PO HS [facility] Last Admin: 11/04/19 21:47 Dose: 20 mg Documented by: Banana Based Medical Food (Banatrol Plus Powder Packet) 1 packet PO BID [facility] Donepezil HCl (Aricept -) 5 mg PO DAILY [facility] Last Admin: 11/05/19 10:19 Dose: 5 mg Documented by: Sodium Chloride (Normal Saline -) 1,000 mls @ 100 mls/hr IV ASDIR [facility] Last Admin: 11/05/19 08:07 Dose: 100 mls/hr Documented by: Lisinopril (Prinivil) 20 mg PO DAILY [facility] Last Admin: 11/05/19 10:03 Dose: Not Given Documented by: Ondansetron HCl (Zofran Injection) 4 mg IVPUSH Q6H PRN PRN Reason: NAUSEA Last Admin: 11/04/19 23:40 Dose: 4 mg Documented by: Pantoprazole Sodium (Protonix Iv) 40 mg IVPUSH DAILY [facility] Last Admin: 11/05/19 10:19 Dose: 40 mg Documented by: - Objective Vital Signs: Vital Signs Temperature 97.5 F L 11/05/19 14:01 Pulse Rate 65 11/05/19 14:01 Respiratory Rate 20 11/05/19 14:01 Blood Pressure 88/54 L 11/05/19 14:01 O2 Sat by Pulse Oximetry (%) 96 11/05/19 14:01 Constitutional: Yes: No Distress HENT: Yes: Atraumatic Neck: Yes: Supple Cardiovascular: Yes: Regular Rate and Rhythm Respiratory: Yes: Rhonchi Gastrointestinal: Yes: Tenderness (ruq...rebound, positive isaac ?) Extremities: Yes: WNL Edema: No Neurological: Yes: Alert, Oriented Labs: CBC, BMP 11/04/19 08:15 11/04/19 08:15 Problem List - Problems (1) TANNER (acute kidney injury) Assessment/Plan: iv hydration cr wnl now Code(s): N17.9 - ACUTE KIDNEY FAILURE, UNSPECIFIED (2) Abdominal pain Assessment/Plan: c/o pain still and nausea npo ivf will do hida to r/o gb stones ct abdomen noted Code(s): R10.9 - UNSPECIFIED ABDOMINAL PAIN (3) Dementia Assessment/Plan: on meds Code(s): F03.90 - UNSPECIFIED DEMENTIA WITHOUT BEHAVIORAL DISTURBANCE (4) Hyperlipidemia Assessment/Plan: on meds Code(s): E78.5 - HYPERLIPIDEMIA, UNSPECIFIED (5) Hyponatremia Assessment/Plan: improving will check labs today Code(s): E87.1 - HYPO-OSMOLALITY AND HYPONATREMIA (6) Intractable nausea and vomiting Code(s): R11.2 - NAUSEA WITH VOMITING, UNSPECIFIED (7) HTN Assessment/Plan: hold bp meds bp low Assessment/Plan covering FOR DR GUADARRAMA TODAY
[2019-11-05] MEDS: ONDANSETRON 4 MG/2 ML VIAL IVPUSH PRN (17:20)
[2019-11-05] MEDS: ONDANSETRON 4 MG/2 ML VIAL IVPUSH SCH ×2 (18:07→23:37)
[2019-11-05] MEDS: METOCLOPRAMIDE HCL INJECTION 10 MG/2 ML VIAL IVPUSH SCH (19:33)
[2019-11-05 19:34] LABS: BASO % 0.9 % (0-2.0); EOS % 0.5 % (0-4.5); HEMATOCRIT 34.4 % (32.4-45.2); HEMOGLOBIN 11.1 GM/dL (10.7-15.3); LYMPH % 11.5 % (8-40); MCH 26.4 pg (25.7-33.7); MCHC 32.3 g/dl (32.0-36.0); MEAN CELL VOLUME 81.7 fl (80-96); MEAN PLT VOLUME 8.2 fl (7.5-11.1); MONO % 7.1 % (3.8-10.2); PLATELET COUNT 405 K/MM3 (134-434); RBC 4.21 M/mm3 (3.60-5.2); RDW 15.4 % (11.6-15.6); WHITE BLOOD COUNT 8.6 K/mm3 (4.0-10.0)
[2019-11-05 20:31] LABS: ALBUMIN 2.2 g/dl (3.4-5.0); BILIRUBIN,TOTAL 0.3 mg/dL (0.2-1); BLOOD UREA NITROGEN 31.2 mg/dL (7-18); CREATININE 2.4 mg/dL (0.55-1.3); POTASSIUM 5.1 mmol/L (3.5-5.1)
[2019-11-05] MEDS: ATORVASTATIN CA 20 MG TABLET (FP) PO SCH (21:53)
[2019-11-05] MEDS: BANATROL PLUS POWDER PACKET PO SCH (21:53)
[2019-11-06] MEDS: METOCLOPRAMIDE HCL INJECTION 10 MG/2 ML VIAL IVPUSH SCH ×3 (01:04→14:00)
[2019-11-06] MEDS: ONDANSETRON 4 MG/2 ML VIAL IVPUSH SCH ×5 (05:53→22:50)
[2019-11-06] MEDS: BANATROL PLUS POWDER PACKET PO SCH ×2 (09:56→22:05)
[2019-11-06] MEDS: PANTOPRAZOLE SODIUM 40 MG VIAL IVPUSH SCH (10:01)
--- NOTE | 2019-11-06 11:31 | CON.ID ---
Consult Consult Specialty:: infectious diseases Referred by:: Reason for Consultation:: confusion - History of Present Illness Chief Complaint: weakness ,dirrhoea,nausea History of Present Illness: 74-year-old frail female, lives at home with history of hypertension, GERD, nonfunctioning pituitary adenoma, benign mass on anterior pelvic wall, previously worked up for unintentional weight loss and pelvic mass, in April 2019 seen by GI, neurosurgery, patient has been doing well today present with acute onset nausea abdominal pain and diarrhea, on arrival to ED patient was dehydrated, had 6-7 loose watery stool not any blood or mucus, no history of bleeding out for treatment, no complaint of fever chills, in the ED blood work- up shows dehydration with TANNER, hyponatremia, CT abdomen shows no interval changes, patient has lost 8 pounds unintentional weight since April 2019 from 103 pounds to 95 pounds. 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) Cardio/Vascular: Yes: HTN, Hyperlipdemia Gastrointestinal: Yes: GERD ...: No - Past Surgical History Past Surgical History: Yes: Hysterectomy - Alcohol/Substance Use Hx Alcohol Use: No - Smoking History Smoking history: Never smoked Have you smoked in the past 12 months: No Aproximately how many cigarettes per day: 0 - Social History History of Recent Travel: No Home Medications - Allergies Allergies/Adverse Reactions: Allergies Allergy/AdvReac Type Severity Reaction Status Date / Time ibuprofen [From Motrin] Allergy Intermediate Rash Verified 11/03/19 09:41 pineapple Allergy Verified 11/03/19 09:41 - Home Medications Home Medications: Ambulatory Orders Donepezil HCl 5 mg PO DAILY 05/08/19 Acetaminophen [Tylenol .Regular Strength -] 650 mg PO Q6H PRN tablet 05/10/19 Atorvastatin Ca [Lipitor] 20 mg PO HS tablet 05/10/19 Lisinopril [Prinivil] 20 mg PO DAILY #30 tablet 05/10/19 Pantoprazole Sodium [Protonix -] 40 mg PO DAILY #30 tablet.ec 05/10/19 Polyethylene Glycol 3350 [Miralax 119 gm Btl -] 17 gm PO DAILY #1 bottle 05/10/19 Simethicone [Mylicon -] 80 mg PO QID #100 tab.chew 05/10/19 Family Medical History Family Hx Diabetes: Mother, Father Review of Systems - Review of Systems Constitutional: reports: Unintentional Wgt. Loss, Weakness Eyes: reports: No Symptoms HENT: reports: No Symptoms Neck: reports: No Symptoms Cardiovascular: reports: No Symptoms Respiratory: reports: No Symptoms Gastrointestinal: reports: Abdominal Pain, Diarrhea, Nausea Genitourinary: reports: No Symptoms Musculoskeletal: reports: No Symptoms Integumentary: reports: No Symptoms Neurological: reports: No Symptoms Endocrine: reports: No Symptoms Hematology/Lymphatic: reports: No Symptoms Psychiatric: reports: No Symptoms Physical Exam Vital Signs: Vital Signs Temperature 97.5 F L 11/06/19 06:01 Pulse Rate 54 L 11/06/19 06:01 Respiratory Rate 20 11/06/19 06:01 Blood Pressure 115/62 11/06/19 06:01 O2 Sat by Pulse Oximetry (%) 98 11/06/19 06:01 Constitutional: Yes: Thin, Other (failure to thrive) Eyes: Yes: Conjunctiva Clear HENT: Yes: Atraumatic, Normocephalic Neck: Yes: Supple, Trachea Midline Cardiovascular: Yes: Regular Rate and Rhythm Respiratory: Yes: Regular, CTA Bilaterally Gastrointestinal: Yes: Soft, Hypoactive Bowel Sounds, Tenderness Musculoskeletal: Yes: WNL Extremities: Yes: WNL Neurological: Yes: Alert Psychiatric: Yes: Alert, Oriented Labs: CBC, BMP 11/05/19 18:30 11/05/19 19:30 Imaging - Results Chest X-ray: Report Reviewed, Image Reviewed Cat Scan: Report Reviewed, Image Reviewed Assessment/Plan Problem List - Problems (1) TANNER (acute kidney injury) Code(s): N17.9 - ACUTE KIDNEY FAILURE, UNSPECIFIED (2) Abdominal pain Code(s): R10.9 - UNSPECIFIED ABDOMINAL PAIN (3) Dementia Code(s): F03.90 - UNSPECIFIED DEMENTIA WITHOUT BEHAVIORAL DISTURBANCE (4) Hyperlipidemia Code(s): E78.5 - HYPERLIPIDEMIA, UNSPECIFIED (5) Hyponatremia Code(s): E87.1 - HYPO-OSMOLALITY AND HYPONATREMIA (6) Intractable nausea and vomiting Code(s): R11.2 - NAUSEA WITH VOMITING, UNSPECIFIED (7) HTN plan will hold off on abx await for all cx reports gi on case rest as per the team
[2019-11-06] MEDS: SODIUM CHLORIDE 1,000 ML IV SCH (16:47)
--- NOTE | 2019-11-06 17:47 | CON.NEURO ---
Consult Consult Specialty:: [facility] - History of Present Illness History of Present Illness: this is 74-year-old right-handed female patient with multiple medical problem including history of high blood pressure coronary artery disease history of pituitary adenoma diagnosed on an MRI that was done back in May 2019 by the primary care physician presents to the hospital with weight-loss dehydration and abdominal pain patient was evaluated by primary care physician and by the infectious disease specialist neurology was called to evaluate the patient for the pituitary adenoma and looked at the images from May 2019 the pituitary adenoma is sizable it's not micro-and its touching the optic chiasm patient is a poor historian regarding any visual field loss patient did not see ophthalmology on this admission - History Source History Provided By: Patient Limitations to Obtaining History: No Limitations - 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) Cardio/Vascular: Yes: HTN, Hyperlipdemia Gastrointestinal: Yes: GERD ...: No - Past Surgical History Past Surgical History: Yes: Hysterectomy - Alcohol/Substance Use Hx Alcohol Use: No - Smoking History Smoking history: Never smoked Have you smoked in the past 12 months: No Aproximately how many cigarettes per day: 0 - Social History History of Recent Travel: No Home Medications - Allergies Allergies/Adverse Reactions: Allergies Allergy/AdvReac Type Severity Reaction Status Date / Time ibuprofen [From Motrin] Allergy Intermediate Rash Verified 11/03/19 09:41 pineapple Allergy Verified 11/03/19 09:41 - Home Medications Home Medications: Ambulatory Orders Donepezil HCl 5 mg PO DAILY 05/08/19 Acetaminophen [Tylenol .Regular Strength -] 650 mg PO Q6H PRN tablet 05/10/19 Atorvastatin Ca [Lipitor] 20 mg PO HS tablet 05/10/19 Lisinopril [Prinivil] 20 mg PO DAILY #30 tablet 05/10/19 Pantoprazole Sodium [Protonix -] 40 mg PO DAILY #30 tablet.ec 05/10/19 Polyethylene Glycol 3350 [Miralax 119 gm Btl -] 17 gm PO DAILY #1 bottle 05/10/19 Simethicone [Mylicon -] 80 mg PO QID #100 tab.chew 05/10/19 Family Medical History Family History: Unremarkable Family Hx Diabetes: Mother, Father Review of Systems - Review of Systems Neurological: reports: Dizziness, Headache, Incoordination, Numbness Physical Exam-Neuro Vital Signs: Vital Signs Temperature 97.5 F L 11/06/19 14:35 Pulse Rate 84 11/06/19 14:35 Respiratory Rate 20 11/06/19 14:35 Blood Pressure 122/59 L 11/06/19 14:35 O2 Sat by Pulse Oximetry (%) 99 11/06/19 14:35 Constitutional: Yes: Well Nourished Neck: Yes: WNL Cardiovascular: Yes: WNL Labs: CBC, BMP 11/05/19 18:30 11/05/19 19:30 - Neuro Exam Level Of Consciousness: Yes: Oriented to Person, Oriented to Place Eyes: Yes: PERRLA Speech: WNL Dominant Hand: Right Cranial Nerves II-XII Intact: Yes Gag: Present DTR's: 1+ Left Bicep, 1+ Right Bicep, 1+ Left Tricep, 1+ Right Tricep Response to light touch: Normal Response to pain prick: Normal Response to temperature: Normal Motor Strength: 3/5: Left Arm, Right Arm, Left Leg, Right Leg Gait: Deferred Imaging - Results MRI: Image Reviewed Problem List - Problems (1) Intractable nausea and vomiting Code(s): R11.2 - NAUSEA WITH VOMITING, UNSPECIFIED (2) Pituitary adenoma Code(s): D35.2 - BENIGN NEOPLASM OF PITUITARY GLAND Assessment/Plan 1. Repeat MRI of the brain with no contrast of the brain and pituitary gland. 2. Fall precautions. 4. Follow-up with gastroenterology and infectious disease specialist. 5. DVT prophylaxis. 6. Blood work that will include prolactin level, LH, FSH Dina Medley M.D. Neurology [phone]
[2019-11-06] MEDS: METOCLOPRAMIDE HCL INJECTION 10 MG/2 ML VIAL IVPB SCH (19:03)
[2019-11-06] MEDS: ATORVASTATIN CA 20 MG TABLET (FP) PO SCH (22:05)
--- NOTE | 2019-11-06 22:11 | PN ---
Progress Note, Physician History of Present Illness: Pt still complains of abdominal discomfort - Current Medication List Current Medications: Active Medications Atorvastatin Calcium (Lipitor -) 20 mg PO HS [facility] Last Admin: 11/06/19 22:05 Dose: 20 mg Documented by: Banana Based Medical Food (Banatrol Plus Powder Packet) 1 packet PO BID [facility] Last Admin: 11/06/19 22:05 Dose: 1 packet Documented by: Sodium Chloride (Normal Saline -) 1,000 mls @ 100 mls/hr IV ASDIR [facility] Last Admin: 11/06/19 16:47 Dose: 100 mls/hr Documented by: Metoclopramide HCl (Reglan Injection -) 5 mg IVPB Q8H-IV [facility] Last Admin: 11/06/19 19:03 Dose: 5 mg Documented by: Ondansetron HCl (Zofran Injection) 4 mg IVPUSH Q6H [facility] Stop: 11/07/19 11:46 Last Admin: 11/06/19 19:03 Dose: 4 mg Documented by: Pantoprazole Sodium (Protonix Iv) 40 mg IVPUSH DAILY [facility] Last Admin: 11/06/19 10:01 Dose: 40 mg Documented by: - Objective Vital Signs: Vital Signs Temperature 97.9 F 11/06/19 21:07 Pulse Rate 88 11/06/19 21:07 Respiratory Rate 20 11/06/19 21:07 Blood Pressure 137/64 11/06/19 21:07 O2 Sat by Pulse Oximetry (%) 95 11/06/19 21:07 Neck: Yes: WNL, Supple Cardiovascular: Yes: WNL, Regular Rate and Rhythm Respiratory: Yes: WNL, Regular, CTA Bilaterally Gastrointestinal: Yes: WNL, Normal Bowel Sounds, Soft Labs: CBC, BMP 11/05/19 18:30 11/05/19 19:30 Problem List - Problems (1) Nausea & vomiting Assessment/Plan: Pt w/ decreased appetite Aricept was stopped Cont reglan Code(s): R11.2 - NAUSEA WITH VOMITING, UNSPECIFIED (2) TANNER (acute kidney injury) Assessment/Plan: Check labs in am ?Dehydration Renal consult Renal US Code(s): N17.9 - ACUTE KIDNEY FAILURE, UNSPECIFIED (3) Hyponatremia Assessment/Plan: Improved w/ IV hydration Code(s): E87.1 - HYPO-OSMOLALITY AND HYPONATREMIA (4) Pituitary adenoma Assessment/Plan: TSH is normal Neuro consult noted MRI brain for evaluation of adenoma Code(s): D35.2 - BENIGN NEOPLASM OF PITUITARY GLAND (5) HTN Assessment/Plan: BP stable Cont lisinopril (6) Hyperlipidemia Assessment/Plan: Cont lipitor Code(s): E78.5 - HYPERLIPIDEMIA, UNSPECIFIED (7) Dementia Assessment/Plan: Pt is now off aricept Code(s): F03.90 - UNSPECIFIED DEMENTIA WITHOUT BEHAVIORAL DISTURBANCE
[2019-11-07] MEDS: METOCLOPRAMIDE HCL INJECTION 10 MG/2 ML VIAL IVPB SCH ×3 (02:42→18:22)
[2019-11-07] MEDS: SODIUM CHLORIDE 1,000 ML IV SCH (03:03)
[2019-11-07] MEDS: ONDANSETRON 4 MG/2 ML VIAL IVPUSH SCH ×2 (05:27→13:03)
[2019-11-07 06:56] LABS: BASO % 1.2 % (0-2.0); EOS % 3.4 % (0-4.5); HEMATOCRIT 27.9 % (32.4-45.2); HEMOGLOBIN 9.2 GM/dL (10.7-15.3); LYMPH % 18.8 % (8-40); MCH 26.3 pg (25.7-33.7); MCHC 32.9 g/dl (32.0-36.0); MEAN CELL VOLUME 79.7 fl (80-96); MONO % 9.6 % (3.8-10.2); PLATELET COUNT 343 K/MM3 (134-434); RBC 3.49 M/mm3 (3.60-5.2); RDW 15.1 % (11.6-15.6); WHITE BLOOD COUNT 6.3 K/mm3 (4.0-10.0)
[2019-11-07 07:26] LABS: ALBUMIN 2.4 g/dl (3.4-5.0); BILIRUBIN,TOTAL 0.4 mg/dL (0.2-1); BLOOD UREA NITROGEN 19.2 mg/dL (7-18); CALCIUM 8.2 mg/dL (8.5-10.1); CREATININE 1.4 mg/dL (0.55-1.3); POTASSIUM 4.4 mmol/L (3.5-5.1)
[2019-11-07] MEDS: PANTOPRAZOLE SODIUM 40 MG VIAL IVPUSH SCH (10:02)
[2019-11-07] MEDS: BANATROL PLUS POWDER PACKET PO SCH ×2 (10:02→22:41)
--- NOTE | 2019-11-07 10:41 | PN ---
Progress Note, Physician History of Present Illness: says she feels a little better abd pain improving - Current Medication List Current Medications: Active Medications Atorvastatin Calcium (Lipitor -) 20 mg PO HS [facility] Last Admin: 11/06/19 22:05 Dose: 20 mg Documented by: Banana Based Medical Food (Banatrol Plus Powder Packet) 1 packet PO BID [facility] Last Admin: 11/07/19 10:02 Dose: 1 packet Documented by: Sodium Chloride (Normal Saline -) 1,000 mls @ 100 mls/hr IV ASDIR [facility] Last Admin: 11/07/19 03:03 Dose: 100 mls/hr Documented by: Metoclopramide HCl (Reglan Injection -) 5 mg IVPB Q8H-IV [facility] Last Admin: 11/07/19 10:02 Dose: 5 mg Documented by: Ondansetron HCl (Zofran Injection) 4 mg IVPUSH Q6H [facility] Stop: 11/07/19 11:46 Last Admin: 11/07/19 05:27 Dose: 4 mg Documented by: Pantoprazole Sodium (Protonix Iv) 40 mg IVPUSH DAILY [facility] Last Admin: 11/07/19 10:02 Dose: 40 mg Documented by: - Objective Vital Signs: Vital Signs Temperature 98.3 F 11/07/19 05:49 Pulse Rate 58 L 11/07/19 05:49 Respiratory Rate 20 11/07/19 05:49 Blood Pressure 100/55 L 11/07/19 05:49 O2 Sat by Pulse Oximetry (%) 95 11/07/19 05:49 Constitutional: Yes: No Distress, Calm Cardiovascular: Yes: S1, S2 Respiratory: Yes: Regular, CTA Bilaterally Gastrointestinal: Yes: Normal Bowel Sounds, Soft Musculoskeletal: Yes: WNL Extremities: Yes: WNL Neurological: Yes: Alert, Oriented Psychiatric: Yes: Alert Labs: CBC, BMP 11/07/19 05:42 11/07/19 05:42 Assessment/Plan Problem List - Problems (1) TANNER (acute kidney injury) Code(s): N17.9 - ACUTE KIDNEY FAILURE, UNSPECIFIED (2) Abdominal pain Code(s): R10.9 - UNSPECIFIED ABDOMINAL PAIN (3) Dementia Code(s): F03.90 - UNSPECIFIED DEMENTIA WITHOUT BEHAVIORAL DISTURBANCE (4) Hyperlipidemia Code(s): E78.5 - HYPERLIPIDEMIA, UNSPECIFIED (5) Hyponatremia Code(s): E87.1 - HYPO-OSMOLALITY AND HYPONATREMIA (6) Intractable nausea and vomiting Code(s): R11.2 - NAUSEA WITH VOMITING, UNSPECIFIED (7) HTN plan continue monitoring rest as per the team
--- NOTE | 2019-11-07 15:53 | CONSULT ---
Consult Consult Specialty:: Nephrology Reason for Consultation:: TANNER - History of Present Illness Chief Complaint: abd pain History of Present Illness: Pt is a 74 year old female with pmhx of htn, gerd, pituitary adenoma who presented to the ER with abd pain and diarrhea. She had several bouts of diarrhea. She was found to have elevated wad blanking press adjuster and I was called to evaluate her. She says she does not have much appetite and does feel nauseated. She has had w eight loss. She denies chest pain. She denies dysuria or hematuria. 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) Cardio/Vascular: Yes: HTN, Hyperlipdemia Gastrointestinal: Yes: GERD ...: No - Past Surgical History Past Surgical History: Yes: Hysterectomy - Alcohol/Substance Use Hx Alcohol Use: No - Smoking History Smoking history: Never smoked Have you smoked in the past 12 months: No Aproximately how many cigarettes per day: 0 - Social History History of Recent Travel: No Home Medications - Allergies Allergies/Adverse Reactions: Allergies Allergy/AdvReac Type Severity Reaction Status Date / Time ibuprofen [From Motrin] Allergy Intermediate Rash Verified 11/03/19 09:41 pineapple Allergy Verified 11/03/19 09:41 - Home Medications Home Medications: Ambulatory Orders Donepezil HCl 5 mg PO DAILY 05/08/19 Acetaminophen [Tylenol .Regular Strength -] 650 mg PO Q6H PRN tablet 05/10/19 Atorvastatin Ca [Lipitor] 20 mg PO HS tablet 05/10/19 Lisinopril [Prinivil] 20 mg PO DAILY #30 tablet 05/10/19 Pantoprazole Sodium [Protonix -] 40 mg PO DAILY #30 tablet.ec 05/10/19 Polyethylene Glycol 3350 [Miralax 119 gm Btl -] 17 gm PO DAILY #1 bottle 05/10/19 Simethicone [Mylicon -] 80 mg PO QID #100 tab.chew 05/10/19 Family Medical History Family Hx Diabetes: Mother, Father Review of Systems - Review of Systems Constitutional: reports: Loss of Appetite, Malaise, Weakness Eyes: reports: No Symptoms HENT: reports: No Symptoms Neck: reports: No Symptoms Respiratory: reports: No Symptoms Gastrointestinal: reports: No Symptoms Genitourinary: reports: No Symptoms Musculoskeletal: reports: No Symptoms Integumentary: reports: No Symptoms Neurological: reports: No Symptoms Endocrine: reports: No Symptoms Hematology/Lymphatic: reports: No Symptoms Physical Exam Vital Signs: Vital Signs Temperature 98.8 F 11/07/19 15:09 Pulse Rate 60 11/07/19 15:09 Respiratory Rate 20 11/07/19 15:09 Blood Pressure 148/74 11/07/19 15:09 O2 Sat by Pulse Oximetry (%) 97 11/07/19 15:09 Constitutional: Yes: Calm Eyes: Yes: Conjunctiva Clear HENT: Yes: Atraumatic Neck: Yes: Supple Cardiovascular: Yes: S1, S2 Respiratory: Yes: CTA Bilaterally Gastrointestinal: Yes: Soft Renal/: Yes: WNL Musculoskeletal: Yes: WNL Edema: No Neurological: Yes: Oriented Psychiatric: Yes: Oriented Labs: CBC, BMP 11/07/19 05:42 11/07/19 05:42 Imaging - Results Cat Scan: Report Reviewed Problem List - Problems (1) TANNER (acute kidney injury) Code(s): N17.9 - ACUTE KIDNEY FAILURE, UNSPECIFIED Assessment/Plan Current Medications Generic Name Dose Route Start Last Admin Trade Name Freq PRN Reason Stop Dose Admin Atorvastatin Calcium 20 mg 11/03/19 22:00 11/06/19 22:05 Lipitor - PO 20 mg HS [facility] Administration Banana Based Medical Food 1 packet 11/05/19 22:00 11/07/19 10:02 Banatrol Plus Powder Packet PO 1 packet BID [facility] Administration Sodium Chloride 1,000 mls @ 100 mls/hr 11/03/19 17:00 11/07/19 03:03 Normal Saline - IV 100 mls/hr ASD[facility] Administration Metoclopramide HCl 5 mg 11/06/19 18:00 11/07/19 10:02 Reglan Injection - IVPB 5 mg Q8H-IV [facility] Administration Pantoprazole Sodium 40 mg 11/03/19 17:00 11/07/19 10:02 Protonix Iv IVPUSH 40 mg DAILY [facility] Administration Laboratory Tests 11/03/19 11/04/19 11/05/19 10:35 08:15 19:30 Sodium Carbon Dioxide 15 L Creatinine 1.4 H 1.1 2.4 H 11/07/19 05:42 Sodium 139 Carbon Dioxide 18 L Creatinine 1.4 H Impression 1. TANNER 2. diarrhea 3. gerd 4. htn 5. weight loss 6. hld 7. hyponatremia 8. metabolic acidosis Plan - tanner likely pre-renal - check urine lytes and wad blanking press adjuster - wad blanking press adjuster improved - decrease fluids to 75 cc and change to LR - repeat labs in am - GI workup in progress - sodium improved - monitor lytes
--- NOTE | 2019-11-07 17:25 | PN ---
GI Progress Note Subjective: symptoms improved after d/c of Aricept - Objective Vital Signs: Vital Signs Temperature 98.8 F 11/07/19 15:09 Pulse Rate 60 11/07/19 15:09 Respiratory Rate 20 11/07/19 15:09 Blood Pressure 148/74 11/07/19 15:09 O2 Sat by Pulse Oximetry (%) 97 11/07/19 15:09 Constitutional: Well Nourished, Poor Hygeine HENT: Yes: Atraumatic Neck: Yes: Supple Cardiovascular: Yes: Regular Rate and Rhythm Respiratory: Yes: CTA Bilaterally ...Palpate: Yes: Soft. No: Firm/Rigid, Guarding, Hepatomegaly, Mass, Pulsatile Mass, Splenomegaly, Tenderness Labs: CBC, BMP 11/07/19 05:42 11/07/19 05:42 Problem List - Problems (1) Intractable nausea and vomiting Assessment/Plan: resolved R> advance diet switch to po meds cyprohepatadine 4mg tid Vitamin B complex Folic acid 1 mg daily Code(s): R11.2 - NAUSEA WITH VOMITING, UNSPECIFIED
[2019-11-07] MEDS: VITAMIN B COMPLEX W/C COMBO TABLET (FP) PO SCH (18:22)
[2019-11-07] MEDS: LACTATED RINGERS SOLUTION 1,000 ML/1,000 ML INFUS.BAG IV SCH (18:22)
[2019-11-07] MEDS: CYPROHEPTADINE HCL 4 MG TABLET PO SCH (18:23)
--- NOTE | 2019-11-07 22:01 | PN ---
Progress Note, Physician - Current Medication List Current Medications: Active Medications Atorvastatin Calcium (Lipitor -) 20 mg PO HS [facility] Last Admin: 11/06/19 22:05 Dose: 20 mg Documented by: Banana Based Medical Food (Banatrol Plus Powder Packet) 1 packet PO BID [facility] Last Admin: 11/07/19 10:02 Dose: 1 packet Documented by: Cyproheptadine HCl (Periactin -) 4 mg PO TIDAC [facility] Last Admin: 11/07/19 18:23 Dose: 4 mg Documented by: Lactated Ringer's (Lactated Ringers Solution) 1,000 ml in 1,000 mls @ 75 mls/hr IV ASDIR [facility] Last Admin: 11/07/19 18:22 Dose: 75 mls/hr Documented by: Metoclopramide HCl (Reglan Injection -) 5 mg IVPB Q8H-IV [facility] Last Admin: 11/07/19 18:22 Dose: 5 mg Documented by: Multivitamins (Total B With C -) 1 each PO DAILY [facility] Last Admin: 11/07/19 18:22 Dose: 1 each Documented by: Pantoprazole Sodium (Protonix Iv) 40 mg IVPUSH DAILY [facility] Last Admin: 11/07/19 10:02 Dose: 40 mg Documented by: - Objective Vital Signs: Vital Signs Temperature 97.3 F L 11/07/19 19:05 Pulse Rate 72 11/07/19 19:05 Respiratory Rate 20 11/07/19 19:05 Blood Pressure 149/77 11/07/19 19:05 O2 Sat by Pulse Oximetry (%) 97 11/07/19 19:05 Labs: CBC, BMP 11/07/19 05:42 11/07/19 05:42 Problem List - Problems (1) Nausea & vomiting Code(s): R11.2 - NAUSEA WITH VOMITING, UNSPECIFIED (2) TANNER (acute kidney injury) Code(s): N17.9 - ACUTE KIDNEY FAILURE, UNSPECIFIED (3) Hyponatremia Code(s): E87.1 - HYPO-OSMOLALITY AND HYPONATREMIA (4) Pituitary adenoma Code(s): D35.2 - BENIGN NEOPLASM OF PITUITARY GLAND (6) Hyperlipidemia Code(s): E78.5 - HYPERLIPIDEMIA, UNSPECIFIED (7) Dementia Code(s): F03.90 - UNSPECIFIED DEMENTIA WITHOUT BEHAVIORAL DISTURBANCE
[2019-11-07] MEDS ORDERED: PT OWN MED DRAWER 7, Y5N ONE (22:40)
[2019-11-07] MEDS: ATORVASTATIN CA 20 MG TABLET (FP) PO SCH (22:41)
[2019-11-08] MEDS ORDERED: PT OWN MED DRAWER 7, Y5N ONE (06:19)
[2019-11-08] MEDS: METOCLOPRAMIDE HCL 10 MG TABLET (FP) PO SCH ×3 (06:22→17:17)
[2019-11-08] MEDS: CYPROHEPTADINE HCL 4 MG TABLET PO SCH ×3 (06:23→17:18)
[2019-11-08 07:26] LABS: ALBUMIN 2.6 g/dl (3.4-5.0); BILIRUBIN,TOTAL 0.3 mg/dL (0.2-1); BLOOD UREA NITROGEN 9.8 mg/dL (7-18); CALCIUM 8.7 mg/dL (8.5-10.1); POTASSIUM 3.8 mmol/L (3.5-5.1); TOT PROT 5.6 g/dl (6.4-8.2)
[2019-11-08] MEDS: LACTATED RINGERS SOLUTION 1,000 ML/1,000 ML INFUS.BAG IV SCH ×2 (09:23→20:33)
[2019-11-08] MEDS: BANATROL PLUS POWDER PACKET PO SCH ×2 (09:24→22:32)
[2019-11-08] MEDS: VITAMIN B COMPLEX W/C COMBO TABLET (FP) PO SCH (09:24)
[2019-11-08] MEDS: PANTOPRAZOLE 40 MG TABLET PO SCH (09:24)
[2019-11-08 10:31] LABS: URINE APPEARANCE Clear; URINE BILIRUBIN Negative (NEGATIVE); URINE COLOR Yellow; URINE GLUCOSE (UA) Negative (NEGATIVE); URINE KETONE Negative (NEGATIVE); URINE LEUK ESTERASE Negative (NEGATIVE); URINE NITRITE Negative (NEGATIVE); URINE PROTEIN Negative (NEGATIVE); URINE UROBILINOGEN 0.2 mg/dL (0.2-1.0)
--- NOTE | 2019-11-08 11:55 | PN ---
Progress Note, Physician History of Present Illness: says she feels a little better abd pain improving eating - Current Medication List Current Medications: Active Medications Atorvastatin Calcium (Lipitor -) 20 mg PO HS [facility] Last Admin: 11/07/19 22:41 Dose: 20 mg Documented by: Banana Based Medical Food (Banatrol Plus Powder Packet) 1 packet PO BID [facility] Last Admin: 11/08/19 09:24 Dose: 1 packet Documented by: Cyproheptadine HCl (Periactin -) 4 mg PO TIDAC [facility] Last Admin: 11/08/19 06:23 Dose: 4 mg Documented by: Lactated Ringer's (Lactated Ringers Solution) 1,000 ml in 1,000 mls @ 75 mls/hr IV ASDIR [facility] Last Admin: 11/08/19 09:23 Dose: 75 mls/hr Documented by: Metoclopramide HCl (Reglan -) 5 mg PO TIDAC [facility] Last Admin: 11/08/19 11:50 Dose: 5 mg Documented by: Multivitamins (Total B With C -) 1 each PO DAILY [facility] Last Admin: 11/08/19 09:24 Dose: 1 each Documented by: Pantoprazole Sodium (Protonix -) 40 mg PO DAILY [facility] Last Admin: 11/08/19 09:24 Dose: 40 mg Documented by: - Objective Vital Signs: Vital Signs Temperature 98.5 F 11/08/19 06:00 Pulse Rate 58 L 11/08/19 06:00 Respiratory Rate 20 11/08/19 06:00 Blood Pressure 133/65 11/08/19 06:00 O2 Sat by Pulse Oximetry (%) 98 11/08/19 06:00 Constitutional: Yes: No Distress, Calm, Thin Neck: Yes: Supple, Trachea Midline Cardiovascular: Yes: Regular Rate and Rhythm Respiratory: Yes: Regular, CTA Bilaterally Musculoskeletal: Yes: WNL Extremities: Yes: WNL Neurological: Yes: Alert, Oriented Psychiatric: Yes: Alert, Oriented Labs: CBC, BMP 11/07/19 05:42 11/08/19 06:12 Assessment/Plan Problem List - Problems (1) TANNER (acute kidney injury) Code(s): N17.9 - ACUTE KIDNEY FAILURE, UNSPECIFIED (2) Abdominal pain Code(s): R10.9 - UNSPECIFIED ABDOMINAL PAIN (3) Dementia Code(s): F03.90 - UNSPECIFIED DEMENTIA WITHOUT BEHAVIORAL DISTURBANCE (4) Hyperlipidemia Code(s): E78.5 - HYPERLIPIDEMIA, UNSPECIFIED (5) Hyponatremia Code(s): E87.1 - HYPO-OSMOLALITY AND HYPONATREMIA (6) Intractable nausea and vomiting Code(s): R11.2 - NAUSEA WITH VOMITING, UNSPECIFIED (7) HTN plan continue monitoring rest as per the team
--- NOTE | 2019-11-08 16:08 | PN ---
Progress Note, Physician History of Present Illness: Pt seen and examined at bedside. She is awake and appears comfortable. - Current Medication List Current Medications: Active Medications Atorvastatin Calcium (Lipitor -) 20 mg PO HS [facility] Last Admin: 11/07/19 22:41 Dose: 20 mg Documented by: Banana Based Medical Food (Banatrol Plus Powder Packet) 1 packet PO BID [facility] Last Admin: 11/08/19 09:24 Dose: 1 packet Documented by: Cyproheptadine HCl (Periactin -) 4 mg PO TIDAC [facility] Last Admin: 11/08/19 13:09 Dose: Not Given Documented by: Lactated Ringer's (Lactated Ringers Solution) 1,000 ml in 1,000 mls @ 75 mls/hr IV ASDIR [facility] Last Admin: 11/08/19 09:23 Dose: 75 mls/hr Documented by: Metoclopramide HCl (Reglan -) 5 mg PO TIDAC [facility] Last Admin: 11/08/19 11:50 Dose: 5 mg Documented by: Multivitamins (Total B With C -) 1 each PO DAILY [facility] Last Admin: 11/08/19 09:24 Dose: 1 each Documented by: Pantoprazole Sodium (Protonix -) 40 mg PO DAILY [facility] Last Admin: 11/08/19 09:24 Dose: 40 mg Documented by: - Objective Vital Signs: Vital Signs Temperature 98.6 F 11/08/19 13:36 Pulse Rate 63 11/08/19 13:36 Respiratory Rate 20 11/08/19 13:36 Blood Pressure 122/67 11/08/19 13:36 O2 Sat by Pulse Oximetry (%) 97 11/08/19 13:36 Constitutional: Yes: Calm Eyes: Yes: Conjunctiva Clear HENT: Yes: Atraumatic Neck: Yes: Supple Cardiovascular: Yes: S1, S2 Respiratory: Yes: CTA Bilaterally Gastrointestinal: Yes: Normal Bowel Sounds, Soft Genitourinary: Yes: WNL Musculoskeletal: Yes: WNL Edema: No Neurological: Yes: Oriented Psychiatric: Yes: Oriented Labs: CBC, BMP 11/07/19 05:42 11/08/19 06:12 Problem List - Problems (1) TANNER (acute kidney injury) Code(s): N17.9 - ACUTE KIDNEY FAILURE, UNSPECIFIED Assessment/Plan Current Medications Generic Name Dose Route Start Last Admin Trade Name Freq PRN Reason Stop Dose Admin Atorvastatin Calcium 20 mg 11/03/19 22:00 11/07/19 22:41 Lipitor - PO 20 mg HS [facility] Administration Banana Based Medical Food 1 packet 11/05/19 22:00 11/08/19 09:24 Banatrol Plus Powder Packet PO 1 packet BID [facility] Administration Cyproheptadine HCl 4 mg 11/07/19 17:30 11/08/19 13:09 Periactin - PO Not Given TIDAC [facility] Lactated Ringer's 1,000 ml in 1,000 mls @ 75 mls/hr 11/07/19 16:00 11/08/19 09:23 Lactated Ringers Solution IV 75 mls/hr ASDIR [facility] Administration Metoclopramide HCl 5 mg 11/08/19 07:00 11/08/19 11:50 Reglan - PO 5 mg TIDAC [facility] Administration Multivitamins 1 each 11/07/19 17:30 11/08/19 09:24 Total B With C - PO 1 each DAILY [facility] Administration Pantoprazole Sodium 40 mg 11/08/19 10:00 11/08/19 09:24 Protonix - PO 40 mg DAILY [facility] Administration Impression 1. TANNER 2. diarrhea 3. gerd 4. htn 5. weight loss 6. hld 7. hyponatremia 8. metabolic acidosis Plan - renal function improving - decrease fluids further - repeat labs in am - encourage po intake - GI workup in progress - sodium improved - monitor lytes - will add dextrose to fluids as glucose is low
[2019-11-08] MEDS ORDERED: DEXTROSE 5%-LACTATED RINGERS 1,000 ML IV SCH (16:15)
[2019-11-08] MEDS: ATORVASTATIN CA 20 MG TABLET (FP) PO SCH (22:32)
--- NOTE | 2019-11-08 22:58 | PN ---
Progress Note, Physician - Current Medication List Current Medications: Active Medications Atorvastatin Calcium (Lipitor -) 20 mg PO HS [facility] Last Admin: 11/08/19 22:32 Dose: 20 mg Documented by: Banana Based Medical Food (Banatrol Plus Powder Packet) 1 packet PO BID [facility] Last Admin: 11/08/19 22:32 Dose: 1 packet Documented by: Cyproheptadine HCl (Periactin -) 4 mg PO TIDAC [facility] Last Admin: 11/08/19 17:18 Dose: 4 mg Documented by: Dextrose/Lactated Ringer's (D5-Lr -) 1,000 mls @ 55 mls/hr IV ASDIR [facility] Last Admin: 11/08/19 17:20 Dose: 55 mls/hr Documented by: Metoclopramide HCl (Reglan -) 5 mg PO TIDAC [facility] Last Admin: 11/08/19 17:17 Dose: 5 mg Documented by: Multivitamins (Total B With C -) 1 each PO DAILY [facility] Last Admin: 11/08/19 09:24 Dose: 1 each Documented by: Pantoprazole Sodium (Protonix -) 40 mg PO DAILY [facility] Last Admin: 11/08/19 09:24 Dose: 40 mg Documented by: - Objective Vital Signs: Vital Signs Temperature 99.4 F 11/08/19 21:00 Pulse Rate 68 11/08/19 21:00 Respiratory Rate 20 11/08/19 21:00 Blood Pressure 153/79 11/08/19 21:00 O2 Sat by Pulse Oximetry (%) 96 11/08/19 21:00 Labs: CBC, BMP 11/07/19 05:42 11/08/19 06:12 Problem List - Problems (1) Nausea & vomiting Code(s): R11.2 - NAUSEA WITH VOMITING, UNSPECIFIED (2) TANNER (acute kidney injury) Code(s): N17.9 - ACUTE KIDNEY FAILURE, UNSPECIFIED (3) Hyponatremia Code(s): E87.1 - HYPO-OSMOLALITY AND HYPONATREMIA (4) Pituitary adenoma Code(s): D35.2 - BENIGN NEOPLASM OF PITUITARY GLAND (6) Hyperlipidemia Code(s): E78.5 - HYPERLIPIDEMIA, UNSPECIFIED (7) Dementia Code(s): F03.90 - UNSPECIFIED DEMENTIA WITHOUT BEHAVIORAL DISTURBANCE
[2019-11-09] MEDS: METOCLOPRAMIDE HCL 10 MG TABLET (FP) PO SCH ×2 (06:13→10:11)
[2019-11-09] MEDS: CYPROHEPTADINE HCL 4 MG TABLET PO SCH ×2 (06:14→10:13)
[2019-11-09 06:55] LABS: ALBUMIN 2.6 g/dl (3.4-5.0); BILIRUBIN,TOTAL 0.5 mg/dL (0.2-1); BLOOD UREA NITROGEN 8.4 mg/dL (7-18); CALCIUM 8.2 mg/dL (8.5-10.1); POTASSIUM 3.5 mmol/L (3.5-5.1); TOT PROT 5.6 g/dl (6.4-8.2)
[2019-11-09 09:01] VITALS: BP 140/80; PULSE 62; TEMP 97.5
[2019-11-09] MEDS: BANATROL PLUS POWDER PACKET PO SCH (10:11)
[2019-11-09] MEDS: VITAMIN B COMPLEX W/C COMBO TABLET (FP) PO SCH (10:11)
[2019-11-09] MEDS: PANTOPRAZOLE 40 MG TABLET PO SCH (10:11)
--- NOTE | 2019-11-09 12:35 | PN ---
Progress Note, Physician History of Present Illness: stable no new issues - Current Medication List Current Medications: Active Medications Atorvastatin Calcium (Lipitor -) 20 mg PO HS [facility] Last Admin: 11/08/19 22:32 Dose: 20 mg Documented by: Banana Based Medical Food (Banatrol Plus Powder Packet) 1 packet PO BID [facility] Last Admin: 11/09/19 10:11 Dose: 1 packet Documented by: Cyproheptadine HCl (Periactin -) 4 mg PO TIDAC [facility] Last Admin: 11/09/19 10:13 Dose: 4 mg Documented by: Dextrose/Lactated Ringer's (D5-Lr -) 1,000 mls @ 55 mls/hr IV ASDIR [facility] Last Admin: 11/08/19 17:20 Dose: 55 mls/hr Documented by: Metoclopramide HCl (Reglan -) 5 mg PO TIDAC [facility] Last Admin: 11/09/19 10:11 Dose: 5 mg Documented by: Multivitamins (Total B With C -) 1 each PO DAILY [facility] Last Admin: 11/09/19 10:11 Dose: 1 each Documented by: Pantoprazole Sodium (Protonix -) 40 mg PO DAILY [facility] Last Admin: 11/09/19 10:11 Dose: 40 mg Documented by: - Objective Vital Signs: Vital Signs Temperature 97.5 F L 11/09/19 08:59 Pulse Rate 62 11/09/19 08:59 Respiratory Rate 18 11/09/19 09:00 Blood Pressure 140/80 11/09/19 08:59 O2 Sat by Pulse Oximetry (%) 96 11/09/19 09:00 Constitutional: Yes: No Distress, Calm Cardiovascular: Yes: S1, S2 Respiratory: Yes: Regular, CTA Bilaterally Gastrointestinal: Yes: Normal Bowel Sounds, Soft Musculoskeletal: Yes: WNL Extremities: Yes: WNL Neurological: Yes: Alert, Oriented Psychiatric: Yes: Alert, Oriented Labs: CBC, BMP 11/07/19 05:42 11/09/19 05:58 Assessment/Plan Problem List - Problems (1) TANNER (acute kidney injury) Code(s): N17.9 - ACUTE KIDNEY FAILURE, UNSPECIFIED (2) Abdominal pain Code(s): R10.9 - UNSPECIFIED ABDOMINAL PAIN (3) Dementia Code(s): F03.90 - UNSPECIFIED DEMENTIA WITHOUT BEHAVIORAL DISTURBANCE (4) Hyperlipidemia Code(s): E78.5 - HYPERLIPIDEMIA, UNSPECIFIED (5) Hyponatremia Code(s): E87.1 - HYPO-OSMOLALITY AND HYPONATREMIA (6) Intractable nausea and vomiting Code(s): R11.2 - NAUSEA WITH VOMITING, UNSPECIFIED (7) HTN plan continue monitoring rest as per the team
== END 2019-11-09 14:38 | disposition home or self-care (01) | DRG 683 ==
LOC: JER 09:35 → JERBED 13:01 → J6WEST-2 11-04 16:29 → J7W 11-06 12:55
PROVIDERS: ADMIT Internal Medicine; ATTEND Internal Medicine
DX: N17.9 Acute kidney failure, unspecified (principal); E87.1 Hypo-osmolality and hyponatremia; E87.2 Acidosis; Z68.1 Body mass index [BMI] 19.9 or less, adult; R10.9 Unspecified abdominal pain; I10 Essential (primary) hypertension; K21.9 Gastro-esophageal reflux disease without esophagitis; E78.5 Hyperlipidemia, unspecified; F03.90 Unspecified dementia, unspecified severity, without behavioral disturbance, psychotic disturbance, mood disturbance, and anxiety; R11.2 Nausea with vomiting, unspecified; R63.4 Abnormal weight loss; D35.2 Benign neoplasm of pituitary gland; R19.7 Diarrhea, unspecified
CPT/HCPCS: 36415; 70551-TC; 74176-TC; 76775-TC; 78226-TC; 80048; 80053; 81003; 82436; 82533; 82565; 83605; 83690; 83735; 83930; 84100; 84133; 84300; 84443; 84484; 85025; 87045; 87046; 87086; 93005; 93010; 99285-25; A9537; U0003

== ENCOUNTER 2020-06-26 10:59 | Inpatient (IN) | payer OTHER ==
[2020-06-26] MEDS ORDERED: ONDANSETRON 4 MG/2 ML VIAL IVPUSH ONE (12:11)
[2020-06-26] MEDS ORDERED: LACTATED RINGERS SOLUTION 1000 ML INFUS.BAG IV ONE (12:12)
[2020-06-26] MEDS ORDERED: ACETAMINOPHEN 325 MG TABLET (FP) PO ONE (12:24)
[2020-06-26] MEDS ORDERED: ONDANSETRON 4 MG/2 ML VIAL ONE (12:53)
[2020-06-26] MEDS ORDERED: ACETAMINOPHEN 325 MG TABLET (FP) ONE (12:53)
[2020-06-26] MEDS ORDERED: ACETAMINOPHEN 1000 MG/100 ML VIAL (NON FORMULARY) IVPB ONE (12:53)
[2020-06-26 13:05] LABS: BASO % 0.9 % (0-2.0); EOS % 1.2 % (0-4.5); HEMOGLOBIN 12.2 GM/dL (10.7-15.3); MCH 29.4 pg (25.7-33.7); MCHC 34.8 g/dl (32.0-36.0); MEAN CELL VOLUME 84.5 fl (80-96); MEAN PLT VOLUME 8.3 fl (7.5-11.1); MONO % 11.6 % (3.8-10.2); NEUT % 64.3 % (42.8-82.8); PLATELET COUNT 426 K/MM3 (134-434); RBC 4.14 M/mm3 (3.60-5.2); RDW 12.6 % (11.6-15.6); WHITE BLOOD COUNT 7.6 K/mm3 (4.0-10.0)
[2020-06-26 13:12] LABS: INR 1.13 (0.83-1.09); PROTHROMBIN TIME (PATIENT) 13.6 SEC (9.7-13.0)
[2020-06-26 13:15] LABS: ACTIVATED PTT 30.1 SECONDS (25.2-36.5)
[2020-06-26 13:26] LABS: ALBUMIN 3.4 g/dl (3.4-5.0); BLOOD UREA NITROGEN 12.3 mg/dL (7-18); CALCIUM 10.1 mg/dL (8.5-10.1); MAGNESIUM 2.5 mg/dL (1.8-2.4)
[2020-06-26 13:30] LABS: CREATININE 1.2 mg/dL (0.55-1.3)
[2020-06-26 13:31] LABS: BILIRUBIN,TOTAL 0.6 mg/dL (0.2-1); TOT PROT 6.8 g/dl (6.4-8.2)
[2020-06-26 14:36] LABS: EPI CELLS 6 /uL (0-25.1); HYALINE CASTS 1 /uL (0-3.1); PH,URINE 8.5 (5.0-8.0); URINE APPEARANCE CLEAR; URINE BACTERIA 93 /uL (0-1359); URINE BILIRUBIN NEGATIVE (NEGATIVE); URINE COLOR YELLOW; URINE GLUCOSE (UA) NEGATIVE (NEGATIVE); URINE KETONE NEGATIVE (NEGATIVE); URINE LEUK ESTERASE TRACE (NEGATIVE); URINE NITRITE NEGATIVE (NEGATIVE); URINE PROTEIN NEGATIVE (NEGATIVE); URINE RBC 2 /uL (0-23.9); URINE UROBILINOGEN 0.2 mg/dL (0.2-1.0); URINE WBC 16 /uL (0-25.8)
[2020-06-26] MEDS ORDERED: CEFTRIAXONE 1,000 MG in DEXTROSE 5%-WATER - 50 ML IVPB ONE (15:42)
[2020-06-26] MEDS ORDERED: CEFTRIAXONE 1 GM/50 ML BAG ONE (16:25)
[2020-06-26] MEDS: LACTATED RINGERS SOLUTION 1,000 ML/1,000 ML INFUS.BAG IV SCH (18:23)
[2020-06-26] MEDS: DEXTROSE 5%-0.45% SALINE 1,000 ML IV SCH (23:30)
[2020-06-26] MEDS: ATORVASTATIN CA 20 MG TABLET (FP) PO SCH (23:30)
[2020-06-27 02:54] VITALS: BMI 19.6
[2020-06-27] MEDS ORDERED: PT OWN MED DRAWER 7, Y5N ONE ×3 (07:43→17:11)
[2020-06-27] MEDS: METOCLOPRAMIDE HCL 10 MG TABLET (FP) PO SCH ×3 (08:10→17:06)
[2020-06-27 09:28] LABS: BASO % 1.3 % (0-2.0); EOS % 2.6 % (0-4.5); HEMATOCRIT 32.3 % (32.4-45.2); HEMOGLOBIN 11.3 GM/dL (10.7-15.3); LYMPH % 23.9 % (8-40); MCH 29.4 pg (25.7-33.7); MCHC 35.1 g/dl (32.0-36.0); MEAN CELL VOLUME 83.9 fl (80-96); MEAN PLT VOLUME 8.3 fl (7.5-11.1); MONO % 12.2 % (3.8-10.2); PLATELET COUNT 402 K/MM3 (134-434); RBC 3.85 M/mm3 (3.60-5.2); RDW 12.9 % (11.6-15.6); WHITE BLOOD COUNT 6.8 K/mm3 (4.0-10.0)
[2020-06-27] MEDS ORDERED: cefTRIAXone SODIUM 1 GM VIAL ONE (09:31)
[2020-06-27] MEDS ORDERED: DEXTROSE 5%-WATER - 50 ML IVPB ONE (09:31)
[2020-06-27] MEDS: LISINOPRIL 20 MG TABLET PO SCH (09:35)
[2020-06-27] MEDS: ENOXAPARIN NA (PORCINE) 40 MG/0.4 ML DISP.SYRIN SQ SCH (09:36)
[2020-06-27] MEDS: CEFTRIAXONE 1 GM in DEXTROSE 5%-WATER - 50 ML IVPB SCH (09:36)
[2020-06-27] MEDS: PANTOPRAZOLE 40 MG TABLET PO SCH (09:36)
[2020-06-27] MEDS: CYPROHEPTADINE HCL 4 MG TABLET PO SCH ×3 (09:36→17:06)
[2020-06-27 10:10] LABS: CALCIUM 8.8 mg/dL (8.5-10.1)
[2020-06-27 10:11] LABS: ALBUMIN 3.1 g/dl (3.4-5.0); BLOOD UREA NITROGEN 7.7 mg/dL (7-18)
[2020-06-27 10:16] LABS: BILIRUBIN,TOTAL 0.6 mg/dL (0.2-1); TOT PROT 5.9 g/dl (6.4-8.2)
[2020-06-27] MEDS: DEXTROSE 5%-0.45% SALINE 1,000 ML IV SCH (17:05)
[2020-06-27] MEDS: LACTATED RINGERS SOLUTION 1,000 ML/1,000 ML INFUS.BAG IV SCH (17:06)
[2020-06-27] MEDS: ATORVASTATIN CA 20 MG TABLET (FP) PO SCH (21:36)
[2020-06-28] MEDS: DEXTROSE 5%-0.45% SALINE 1,000 ML IV SCH ×2 (02:44→16:55)
[2020-06-28] MEDS ORDERED: PT OWN MED DRAWER 7, Y5N ONE ×4 (05:46→16:59)
[2020-06-28] MEDS: METOCLOPRAMIDE HCL 10 MG TABLET (FP) PO SCH ×3 (07:14→16:54)
[2020-06-28] MEDS: CYPROHEPTADINE HCL 4 MG TABLET PO SCH ×3 (07:14→16:55)
[2020-06-28] MEDS ORDERED: cefTRIAXone SODIUM 1 GM VIAL ONE (09:00)
[2020-06-28] MEDS ORDERED: DEXTROSE 5%-WATER - 50 ML IVPB ONE (09:00)
[2020-06-28] MEDS: ENOXAPARIN NA (PORCINE) 40 MG/0.4 ML DISP.SYRIN SQ SCH (09:44)
[2020-06-28] MEDS: PANTOPRAZOLE 40 MG TABLET PO SCH (09:45)
[2020-06-28] MEDS: LISINOPRIL 20 MG TABLET PO SCH (09:45)
[2020-06-28] MEDS: CEFTRIAXONE 1 GM in DEXTROSE 5%-WATER - 50 ML IVPB SCH (09:45)
[2020-06-28] MEDS: ATORVASTATIN CA 20 MG TABLET (FP) PO SCH (21:50)
[2020-06-29] MEDS ORDERED: PT OWN MED DRAWER 7, Y5N ONE ×2 (05:12→11:01)
[2020-06-29] MEDS: METOCLOPRAMIDE HCL 10 MG TABLET (FP) PO SCH ×2 (06:37→10:00)
[2020-06-29] MEDS: CYPROHEPTADINE HCL 4 MG TABLET PO SCH ×2 (06:37→11:03)
[2020-06-29] MEDS: LISINOPRIL 20 MG TABLET PO SCH (09:55)
[2020-06-29] MEDS: ENOXAPARIN NA (PORCINE) 40 MG/0.4 ML DISP.SYRIN SQ SCH (09:56)
[2020-06-29] MEDS: PANTOPRAZOLE 40 MG TABLET PO SCH (09:56)
[2020-06-29] MEDS ORDERED: MULTIVITAMINS (DAILY MVI) TABLET (FP) PO SCH (10:00)
[2020-06-29] MEDS: DEXTROSE 5%-0.45% SALINE 1,000 ML IV SCH (10:57)
[2020-06-29 16:25] VITALS: BP 134/68; PULSE 76; TEMP 98.2
== END 2020-06-29 18:02 | disposition home health service (06) | DRG 644 ==
LOC: JER 10:59 → JERBED 15:58 → J8W 06-27 00:49
PROVIDERS: ADMIT Internal Medicine; ATTEND Internal Medicine
DX: D35.2 Benign neoplasm of pituitary gland (principal); N39.0 Urinary tract infection, site not specified; E11.9 Type 2 diabetes mellitus without complications; F03.90 Unspecified dementia, unspecified severity, without behavioral disturbance, psychotic disturbance, mood disturbance, and anxiety; E78.5 Hyperlipidemia, unspecified; K44.9 Diaphragmatic hernia without obstruction or gangrene
CPT/HCPCS: 36415; 74177-TC; 80053; 81003; 82550; 83605; 83690; 83735; 84484; 85025; 85610; 85730; 86850; 86900; 86901; 87040; 87086; 93005; 93010; 97116-GP; 97161-GP; 99285-25; C9803; Q9967; U0003; U0005

== ENCOUNTER 2020-11-09 11:24 | Inpatient (IN) | payer OTHER ==
[2020-11-09] MEDS ORDERED: SODIUM CHLORIDE 0.9% 500 ML INFUS.BAG IV ONE (12:44)
[2020-11-09] MEDS ORDERED: FAMOTIDINE 20 MG/50 ML IVPB 20 MG/50 ML MG IVPB ONE ×2 (12:56→13:00)
[2020-11-09] MEDS ORDERED: METOCLOPRAMIDE HCL INJECTION 10 MG/2 ML VIAL IVPUSH ONE (12:56)
[2020-11-09] MEDS ORDERED: METOCLOPRAMIDE HCL INJECTION 10 MG/2 ML VIAL ONE (12:59)
[2020-11-09 13:19] LABS: BASO % 1.3 % (0-2.0); EOS % 0.7 % (0-4.5); HEMATOCRIT 30.6 % (32.4-45.2); HEMOGLOBIN 10.8 GM/dL (10.7-15.3); LYMPH % 12.6 % (8-40); MCH 27.5 pg (25.7-33.7); MCHC 35.3 g/dl (32.0-36.0); MEAN PLT VOLUME 7.5 fl (7.5-11.1); MONO % 14.9 % (3.8-10.2); NEUT % 70.5 % (42.8-82.8); PLATELET COUNT 320 10^3/uL (134-434); RBC 3.92 M/mm3 (3.60-5.2); RDW 13.9 % (11.6-15.6); WHITE BLOOD COUNT 7.9 K/mm3 (4.0-10.0)
[2020-11-09 13:36] LABS: ALBUMIN 3.1 g/dl (3.4-5.0); BLOOD UREA NITROGEN 13.1 mg/dL (7-18); CALCIUM 8.7 mg/dL (8.5-10.1)
[2020-11-09 13:39] LABS: CREATININE 1.2 mg/dL (0.55-1.3)
[2020-11-09 13:41] LABS: BILIRUBIN,TOTAL 0.9 mg/dL (0.2-1); TOT PROT 6.5 g/dl (6.4-8.2)
[2020-11-09 14:42] LABS: EPI CELLS 5 /uL (0-25.1); HYALINE CASTS 2 /uL (0-3.1); PH,URINE 7.5 (5.0-8.0); URINE APPEARANCE CLEAR; URINE BACTERIA 36 /uL (0-1359); URINE BILIRUBIN NEGATIVE (NEGATIVE); URINE COLOR YELLOW; URINE GLUCOSE (UA) NEGATIVE (NEGATIVE); URINE KETONE NEGATIVE (NEGATIVE); URINE LEUK ESTERASE 2+ (NEGATIVE); URINE NITRITE NEGATIVE (NEGATIVE); URINE PROTEIN NEGATIVE (NEGATIVE); URINE RBC 8 /uL (0-23.9); URINE WBC 81 /uL (0-25.8)
[2020-11-09] MEDS ORDERED: CEFTRIAXONE 1,000 MG in DEXTROSE 5%-WATER - 50 ML IVPB ONE (15:06)
[2020-11-09] MEDS ORDERED: CEFTRIAXONE 1 GM/50 ML BAG ONE (15:27)
[2020-11-09] MEDS ORDERED: ONDANSETRON 4 MG/2 ML VIAL IVPUSH PRN (21:08)
[2020-11-09] MEDS: BENZTROPINE MESYLATE 1 MG TABLET PO SCH (21:52)
[2020-11-09] MEDS: ATORVASTATIN CA 20 MG TABLET (FP) PO SCH (21:52)
[2020-11-10] MEDS: METOCLOPRAMIDE HCL 10 MG TABLET (FP) PO SCH ×3 (06:00→15:56)
[2020-11-10 09:36] LABS: BASO % 1.8 % (0-2.0); EOS % 0.5 % (0-4.5); HEMATOCRIT 32.3 % (32.4-45.2); HEMOGLOBIN 11.2 GM/dL (10.7-15.3); LYMPH % 17.7 % (8-40); MCH 27.3 pg (25.7-33.7); MCHC 34.7 g/dl (32.0-36.0); MEAN CELL VOLUME 78.4 fl (80-96); MEAN PLT VOLUME 7.6 fl (7.5-11.1); MONO % 11.9 % (3.8-10.2); NEUT % 68.1 % (42.8-82.8); PLATELET COUNT 356 10^3/uL (134-434); RBC 4.11 M/mm3 (3.60-5.2); RDW 14.3 % (11.6-15.6); WHITE BLOOD COUNT 7.6 K/mm3 (4.0-10.0)
[2020-11-10 10:09] LABS: CALCIUM 8.8 mg/dL (8.5-10.1)
[2020-11-10 10:10] LABS: ALBUMIN 3.1 g/dl (3.4-5.0); BLOOD UREA NITROGEN 12.7 mg/dL (7-18)
[2020-11-10 10:13] LABS: CREATININE 1.2 mg/dL (0.55-1.3)
[2020-11-10 10:14] LABS: BILIRUBIN,TOTAL 0.6 mg/dL (0.2-1); TOT PROT 6.6 g/dl (6.4-8.2)
[2020-11-10] MEDS ORDERED: PT OWN MED DRAWER 7, Y5N ONE ×2 (10:57→20:52)
[2020-11-10] MEDS: PANTOPRAZOLE 40 MG TABLET PO SCH (10:59)
[2020-11-10] MEDS: ENOXAPARIN NA (PORCINE) 40 MG/0.4 ML DISP.SYRIN SQ SCH (10:59)
[2020-11-10] MEDS: BROMOCRIPTINE MESYLATE 2.5 MG TABLET PO SCH (11:00)
[2020-11-10] MEDS ORDERED: POTASSIUM CHLORIDE TABS 20 MEQ TABLET.ER (FP) PO ONE (14:52)
[2020-11-10] MEDS ORDERED: DEXTROSE 5%-NORMAL SALINE 1,000 ML IV SCH (15:00)
[2020-11-10] MEDS ORDERED: DEXTROSE 5%-WATER - 50 ML IVPB ONE (15:50)
[2020-11-10] MEDS ORDERED: cefTRIAXone SODIUM 1 GM VIAL ONE (15:50)
[2020-11-10] MEDS: CEFTRIAXONE 1 GM in DEXTROSE 5%-WATER - 50 ML IVPB SCH (15:57)
[2020-11-10] MEDS: BENZTROPINE MESYLATE 1 MG TABLET PO SCH (21:08)
[2020-11-10] MEDS: ATORVASTATIN CA 20 MG TABLET (FP) PO SCH (21:08)
[2020-11-10] MEDS ORDERED: ACETAMINOPHEN 1000 MG/100 ML VIAL (NON FORMULARY) IVPB ONE ×2 (22:24)
[2020-11-10] MEDS ORDERED: ACETAMINOPHEN INJECTION 100 ML IVPB ONE (23:07)
[2020-11-11] MEDS: METOCLOPRAMIDE HCL 10 MG TABLET (FP) PO SCH ×3 (06:03→17:11)
[2020-11-11] MEDS ORDERED: cefTRIAXone SODIUM 1 GM VIAL ONE (09:18)
[2020-11-11] MEDS ORDERED: PT OWN MED DRAWER 7, Y5N ONE ×3 (09:18→20:48)
[2020-11-11] MEDS ORDERED: DEXTROSE 5%-WATER - 50 ML IVPB ONE (09:19)
[2020-11-11 09:22] LABS: BASO % 1.2 % (0-2.0); EOS % 0.2 % (0-4.5); HEMATOCRIT 29.8 % (32.4-45.2); HEMOGLOBIN 10.4 GM/dL (10.7-15.3); LYMPH % 10.8 % (8-40); MCH 27.5 pg (25.7-33.7); MCHC 34.9 g/dl (32.0-36.0); MEAN CELL VOLUME 78.9 fl (80-96); MEAN PLT VOLUME 8.4 fl (7.5-11.1); MONO % 11.7 % (3.8-10.2); NEUT % 76.1 % (42.8-82.8); PLATELET COUNT 314 10^3/uL (134-434); RBC 3.78 M/mm3 (3.60-5.2); RDW 14.2 % (11.6-15.6); WHITE BLOOD COUNT 6.9 K/mm3 (4.0-10.0)
[2020-11-11] MEDS: ENOXAPARIN NA (PORCINE) 40 MG/0.4 ML DISP.SYRIN SQ SCH (09:23)
[2020-11-11] MEDS: CEFTRIAXONE 1 GM in DEXTROSE 5%-WATER - 50 ML IVPB SCH (09:23)
[2020-11-11] MEDS: BROMOCRIPTINE MESYLATE 2.5 MG TABLET PO SCH (09:24)
[2020-11-11] MEDS: PANTOPRAZOLE 40 MG TABLET PO SCH (09:30)
[2020-11-11 09:54] LABS: CALCIUM 8.2 mg/dL (8.5-10.1)
[2020-11-11 09:55] LABS: ALBUMIN 2.8 g/dl (3.4-5.0)
[2020-11-11 10:00] LABS: BILIRUBIN,TOTAL 0.6 mg/dL (0.2-1); TOT PROT 6.1 g/dl (6.4-8.2)
[2020-11-11] MEDS: DEXTROSE 5%-NORMAL SALINE 1,000 ML IV SCH (12:37)
[2020-11-11 15:25] VITALS: BMI 18.3
[2020-11-11] MEDS: ACETAMINOPHEN 325 MG TABLET (FP) PO PRN (15:33)
[2020-11-11] MEDS: BENZTROPINE MESYLATE 1 MG TABLET PO SCH (21:27)
[2020-11-11] MEDS: ATORVASTATIN CA 20 MG TABLET (FP) PO SCH (21:27)
[2020-11-12] MEDS: ACETAMINOPHEN 325 MG TABLET (FP) PO PRN ×2 (02:59→15:53)
[2020-11-12] MEDS: METOCLOPRAMIDE HCL 10 MG TABLET (FP) PO SCH ×3 (06:11→15:54)
[2020-11-12 09:10] LABS: ALBUMIN 2.6 g/dl (3.4-5.0); BLOOD UREA NITROGEN 9.1 mg/dL (7-18)
[2020-11-12 09:13] LABS: BILIRUBIN,TOTAL 0.4 mg/dL (0.2-1); CREATININE 0.8 mg/dL (0.55-1.3); TOT PROT 5.6 g/dl (6.4-8.2)
[2020-11-12] MEDS ORDERED: PT OWN MED DRAWER 7, Y5N ONE ×3 (09:50→21:11)
[2020-11-12] MEDS ORDERED: DEXTROSE 5%-WATER - 50 ML IVPB ONE (09:50)
[2020-11-12] MEDS ORDERED: cefTRIAXone SODIUM 1 GM VIAL ONE (09:50)
[2020-11-12] MEDS: ENOXAPARIN NA (PORCINE) 40 MG/0.4 ML DISP.SYRIN SQ SCH (09:53)
[2020-11-12] MEDS: CEFTRIAXONE 1 GM in DEXTROSE 5%-WATER - 50 ML IVPB SCH (09:53)
[2020-11-12] MEDS: PANTOPRAZOLE 40 MG TABLET PO SCH (09:53)
[2020-11-12] MEDS: BROMOCRIPTINE MESYLATE 2.5 MG TABLET PO SCH (11:59)
[2020-11-12] MEDS: DEXTROSE 5%-NORMAL SALINE 1,000 ML IV SCH (16:02)
[2020-11-12] MEDS ORDERED: POTASSIUM CHLORIDE TABS 20 MEQ TABLET.ER (FP) PO ONE (16:31)
[2020-11-12] MEDS: POTASSIUM CHLORIDE 10 MEQ in DEXTROSE 5%-NORMAL SALINE 995 ML IV SCH (18:30)
[2020-11-12] MEDS: BENZTROPINE MESYLATE 1 MG TABLET PO SCH (21:15)
[2020-11-12] MEDS: ATORVASTATIN CA 20 MG TABLET (FP) PO SCH (21:15)
[2020-11-13] MEDS: ACETAMINOPHEN 325 MG TABLET (FP) PO PRN (05:49)
[2020-11-13] MEDS: METOCLOPRAMIDE HCL 10 MG TABLET (FP) PO SCH ×3 (06:18→17:46)
[2020-11-13] MEDS: POTASSIUM CHLORIDE 10 MEQ in DEXTROSE 5%-NORMAL SALINE 995 ML IV SCH ×3 (08:42→23:09)
[2020-11-13 09:31] LABS: BASO % 0.9 % (0-2.0); EOS % 0.3 % (0-4.5); HEMATOCRIT 28.5 % (32.4-45.2); HEMOGLOBIN 9.8 GM/dL (10.7-15.3); LYMPH % 13.2 % (8-40); MCH 27.5 pg (25.7-33.7); MCHC 34.6 g/dl (32.0-36.0); MEAN CELL VOLUME 79.6 fl (80-96); MEAN PLT VOLUME 8.5 fl (7.5-11.1); NEUT % 70.6 % (42.8-82.8); PLATELET COUNT 270 10^3/uL (134-434); RBC 3.58 M/mm3 (3.60-5.2); RDW 14.3 % (11.6-15.6); WHITE BLOOD COUNT 6.8 K/mm3 (4.0-10.0)
[2020-11-13 10:12] LABS: CALCIUM 8.2 mg/dL (8.5-10.1)
[2020-11-13 10:16] LABS: CREATININE 0.8 mg/dL (0.55-1.3)
[2020-11-13] MEDS ORDERED: cefTRIAXone SODIUM 1 GM VIAL ONE (10:18)
[2020-11-13] MEDS ORDERED: DEXTROSE 5%-WATER - 50 ML IVPB ONE (10:18)
[2020-11-13] MEDS: PANTOPRAZOLE 40 MG TABLET PO SCH (10:31)
[2020-11-13] MEDS ORDERED: PT OWN MED DRAWER 7, Y5N ONE ×3 (10:33→20:42)
[2020-11-13] MEDS: ENOXAPARIN NA (PORCINE) 40 MG/0.4 ML DISP.SYRIN SQ SCH (10:37)
[2020-11-13] MEDS: CEFTRIAXONE 1 GM in DEXTROSE 5%-WATER - 50 ML IVPB SCH (10:58)
[2020-11-13] MEDS: BROMOCRIPTINE MESYLATE 2.5 MG TABLET PO SCH (12:24)
[2020-11-13] MEDS: ATORVASTATIN CA 20 MG TABLET (FP) PO SCH (21:36)
[2020-11-13] MEDS: BENZTROPINE MESYLATE 1 MG TABLET PO SCH (21:36)
[2020-11-14] MEDS: METOCLOPRAMIDE HCL 10 MG TABLET (FP) PO SCH ×3 (06:26→17:27)
[2020-11-14] MEDS ORDERED: cefTRIAXone SODIUM 1 GM VIAL ONE (09:00)
[2020-11-14] MEDS ORDERED: DEXTROSE 5%-WATER - 50 ML IVPB ONE (09:01)
[2020-11-14 09:10] LABS: BASO % 1.3 % (0-2.0); EOS % 1.3 % (0-4.5); HEMATOCRIT 29.2 % (32.4-45.2); LYMPH % 19.9 % (8-40); MCH 27.3 pg (25.7-33.7); MCHC 34.3 g/dl (32.0-36.0); MEAN CELL VOLUME 79.7 fl (80-96); MEAN PLT VOLUME 8.2 fl (7.5-11.1); MONO % 13.9 % (3.8-10.2); NEUT % 63.6 % (42.8-82.8); PLATELET COUNT 297 10^3/uL (134-434); RBC 3.67 M/mm3 (3.60-5.2); RDW 14.3 % (11.6-15.6); WHITE BLOOD COUNT 5.6 K/mm3 (4.0-10.0)
[2020-11-14 09:24] LABS: CALCIUM 8.3 mg/dL (8.5-10.1)
[2020-11-14 09:25] LABS: ALBUMIN 2.6 g/dl (3.4-5.0); BLOOD UREA NITROGEN 7.5 mg/dL (7-18)
[2020-11-14 09:28] LABS: CREATININE 0.7 mg/dL (0.55-1.3)
[2020-11-14 09:30] LABS: BILIRUBIN,TOTAL 0.7 mg/dL (0.2-1)
[2020-11-14] MEDS: ENOXAPARIN NA (PORCINE) 40 MG/0.4 ML DISP.SYRIN SQ SCH (10:32)
[2020-11-14] MEDS: CEFTRIAXONE 1 GM in DEXTROSE 5%-WATER - 50 ML IVPB SCH (10:33)
[2020-11-14] MEDS: PANTOPRAZOLE 40 MG TABLET PO SCH (10:36)
[2020-11-14] MEDS: BROMOCRIPTINE MESYLATE 2.5 MG TABLET PO SCH (10:37)
[2020-11-14] MEDS: POTASSIUM CHLORIDE 10 MEQ in DEXTROSE 5%-NORMAL SALINE 995 ML IV SCH ×2 (10:39→21:50)
[2020-11-14] MEDS ORDERED: PT OWN MED DRAWER 7, Y5N ONE (21:13)
[2020-11-14] MEDS: BENZTROPINE MESYLATE 1 MG TABLET PO SCH (21:49)
[2020-11-14] MEDS: ATORVASTATIN CA 20 MG TABLET (FP) PO SCH (21:49)
[2020-11-14] MEDS: ACETAMINOPHEN 325 MG TABLET (FP) PO PRN (21:49)
[2020-11-15] MEDS: POTASSIUM CHLORIDE 10 MEQ in DEXTROSE 5%-NORMAL SALINE 995 ML IV SCH ×4 (01:09→23:11)
[2020-11-15] MEDS: METOCLOPRAMIDE HCL 10 MG TABLET (FP) PO SCH ×3 (06:19→17:26)
[2020-11-15] MEDS ORDERED: cefTRIAXone SODIUM 1 GM VIAL ONE (11:40)
[2020-11-15] MEDS ORDERED: DEXTROSE 5%-WATER - 50 ML IVPB ONE (11:40)
[2020-11-15] MEDS: ENOXAPARIN NA (PORCINE) 40 MG/0.4 ML DISP.SYRIN SQ SCH (11:42)
[2020-11-15] MEDS: PANTOPRAZOLE 40 MG TABLET PO SCH (11:42)
[2020-11-15] MEDS: CEFTRIAXONE 1 GM in DEXTROSE 5%-WATER - 50 ML IVPB SCH (11:42)
[2020-11-15] MEDS: BROMOCRIPTINE MESYLATE 2.5 MG TABLET PO SCH (11:43)
[2020-11-15] MEDS ORDERED: PT OWN MED DRAWER 7, Y5N ONE ×2 (14:48→20:40)
[2020-11-15] MEDS: BENZTROPINE MESYLATE 1 MG TABLET PO SCH (21:05)
[2020-11-15] MEDS: ATORVASTATIN CA 20 MG TABLET (FP) PO SCH (21:05)
[2020-11-15] MEDS: ACETAMINOPHEN 325 MG TABLET (FP) PO PRN (21:43)
[2020-11-16] MEDS: METOCLOPRAMIDE HCL 10 MG TABLET (FP) PO SCH ×3 (06:06→17:41)
[2020-11-16] MEDS: PANTOPRAZOLE 40 MG TABLET PO SCH (10:19)
[2020-11-16] MEDS: ENOXAPARIN NA (PORCINE) 40 MG/0.4 ML DISP.SYRIN SQ SCH (10:19)
[2020-11-16] MEDS: BROMOCRIPTINE MESYLATE 2.5 MG TABLET PO SCH (10:40)
[2020-11-16] MEDS: POTASSIUM CHLORIDE 10 MEQ in DEXTROSE 5%-NORMAL SALINE 995 ML IV SCH ×2 (11:45→11:47)
[2020-11-16 14:05] VITALS: BP 138/70; PULSE 60; TEMP 99.2
[2020-11-16 17:14] LABS: HEMATOCRIT 29.6 % (32.4-45.2); HEMOGLOBIN 10.2 GM/dL (10.7-15.3); MCH 27.1 pg (25.7-33.7); MCHC 34.5 g/dl (32.0-36.0); MEAN CELL VOLUME 78.7 fl (80-96); MEAN PLT VOLUME 8.2 fl (7.5-11.1); PLATELET COUNT 308 10^3/uL (134-434); RBC 3.76 M/mm3 (3.60-5.2); RDW 14.3 % (11.6-15.6); WHITE BLOOD COUNT 5.5 K/mm3 (4.0-10.0)
[2020-11-16 17:33] LABS: ALBUMIN 2.9 g/dl (3.4-5.0); CALCIUM 8.6 mg/dL (8.5-10.1)
[2020-11-16 17:37] LABS: CREATININE 0.7 mg/dL (0.55-1.3)
[2020-11-16 17:38] LABS: BILIRUBIN,TOTAL 0.7 mg/dL (0.2-1); TOT PROT 6.2 g/dl (6.4-8.2)
== END 2020-11-16 18:37 | disposition home or self-care (01) | DRG 641 ==
LOC: JER 11:24 → JERBED 13:37 → J8W 18:51
PROVIDERS: ADMIT Internal Medicine; ATTEND Internal Medicine
DX: E87.1 Hypo-osmolality and hyponatremia (principal); R42 Dizziness and giddiness; I10 Essential (primary) hypertension; F03.90 Unspecified dementia, unspecified severity, without behavioral disturbance, psychotic disturbance, mood disturbance, and anxiety; E11.9 Type 2 diabetes mellitus without complications; K21.9 Gastro-esophageal reflux disease without esophagitis; E78.5 Hyperlipidemia, unspecified; D35.2 Benign neoplasm of pituitary gland; R11.2 Nausea with vomiting, unspecified; R53.1 Weakness; R19.7 Diarrhea, unspecified; E86.0 Dehydration; E87.6 Hypokalemia
CPT/HCPCS: 36415; 71045-TC-FY; 71260-TC; 74177-TC; 80048; 80053; 81003; 82436; 82550; 82962; 83930; 83935; 84133; 84300; 84484; 85025; 85027; 87040; 87086; 93005; 93010; 97116-GP; 97162-GP; 99285-25; C9803; J0131; Q9967; U0003; U0005

== ENCOUNTER 2021-03-26 22:33 | Inpatient (IN) | payer BC, OTHER ==
[2021-03-26] MEDS ORDERED: ACETAMINOPHEN 1000 MG/100 ML BAG IVPB ONE (23:28)
[2021-03-26] MEDS ORDERED: ACETAMINOPHEN 325 MG TABLET (FP) PO ONE (23:44)
[2021-03-27] MEDS ORDERED: ACETAMINOPHEN 325 MG TABLET (FP) ONE (00:12)
[2021-03-27 05:41] LABS: BASO % 1.1 % (0-2.0); EOS % 1.2 % (0-4.5); HEMATOCRIT 32.3 % (32.4-45.2); HEMOGLOBIN 10.7 GM/dL (10.7-15.3); LYMPH % 24.9 % (8-40); MCH 26.5 pg (25.7-33.7); MCHC 33.1 g/dl (32.0-36.0); MEAN CELL VOLUME 79.9 fl (80-96); MEAN PLT VOLUME 8.3 fl (7.5-11.1); MONO % 9.4 % (3.8-10.2); NEUT % 63.4 % (42.8-82.8); PLATELET COUNT 423 10^3/uL (134-434); RBC 4.05 M/mm3 (3.60-5.2); RDW 13.9 % (11.6-15.6); WHITE BLOOD COUNT 6.6 K/mm3 (4.0-10.0)
[2021-03-27 05:48] LABS: INR 1.15 (0.83-1.09); PROTHROMBIN TIME (PATIENT) 13.3 SEC (9.7-13.0)
[2021-03-27 05:51] LABS: ACTIVATED PTT 32.3 SECONDS (25.2-36.5)
[2021-03-27 06:01] LABS: CALCIUM 8.6 mg/dL (8.5-10.1)
[2021-03-27 06:02] LABS: ALBUMIN 2.9 g/dl (3.4-5.0); BLOOD UREA NITROGEN 11.9 mg/dL (7-18)
[2021-03-27 06:04] LABS: CREATININE 0.8 mg/dL (0.55-1.3)
[2021-03-27 06:06] LABS: BILIRUBIN,TOTAL 0.2 mg/dL (0.2-1); TOT PROT 6.3 g/dl (6.4-8.2)
[2021-03-27] MEDS ORDERED: POTASSIUM CHLORIDE ORAL LIQUID 20 MEQ/15 ML PO ONE (06:49)
[2021-03-27] MEDS ORDERED: DEXTROSE 50%-WATER - 25 GM/50 ML VIAL IVPUSH PRN (06:56)
[2021-03-27] MEDS ORDERED: D5-1/2NS+20 MEQ KCL - 20 MEQ/1,000 ML INFUS.BAG IV SCH (07:00)
[2021-03-27] MEDS ORDERED: POTASSIUM CHLORIDE ORAL LIQUID 20 MEQ/15 ML ONE (07:15)
[2021-03-27] MEDS: INSULIN SLIDING SCALE (NOVOLOG) 1 VIAL SQ SCH ×4 (08:00→21:29)
[2021-03-27] MEDS ORDERED: MUPIROCIN 2% TOPICAL OINTMENT FOR DECOLONIZATION NS SCH (10:00)
[2021-03-27] MEDS: DEXTROSE 5%-0.45% SALINE 1,000 ML IV SCH (11:16)
[2021-03-27] MEDS ORDERED: CHLORHEXIDINE GLUCONATE 4% CLEANSER FOR DECOLONIZATION TP SCH (22:00)
[2021-03-28] MEDS ORDERED: ACETAMINOPHEN 1000 MG/100 ML BAG IVPB ONE (00:18)
[2021-03-28] MEDS ORDERED: ACETAMINOPHEN INJECTION 100 ML IVPB ONE (00:18)
[2021-03-28 03:24] LABS: PH,URINE 8.5 (5.0-8.0); URINE APPEARANCE CLEAR; URINE BILIRUBIN NEGATIVE (NEGATIVE); URINE COLOR YELLOW; URINE GLUCOSE (UA) NEGATIVE (NEGATIVE); URINE KETONE NEGATIVE (NEGATIVE); URINE LEUK ESTERASE NEGATIVE (NEGATIVE); URINE NITRITE NEGATIVE (NEGATIVE); URINE PROTEIN NEGATIVE (NEGATIVE); URINE UROBILINOGEN 0.2 mg/dL (0.2-1.0)
[2021-03-28 03:36] LABS: HEMATOCRIT 30.3 % (32.4-45.2); HEMOGLOBIN 10.4 GM/dL (10.7-15.3); MCH 27.5 pg (25.7-33.7); MCHC 34.2 g/dl (32.0-36.0); MEAN CELL VOLUME 80.5 fl (80-96); MEAN PLT VOLUME 8.7 fl (7.5-11.1); PLATELET COUNT 337 10^3/uL (134-434); RBC 3.77 M/mm3 (3.60-5.2); RDW 14.3 % (11.6-15.6)
[2021-03-28 03:48] LABS: WHITE BLOOD COUNT 13.1 K/mm3 (4.0-10.0)
[2021-03-28 04:26] LABS: ANISOCYTOSIS 2+; MACROCYTOSIS 0; PLATELET ESTIMATE NORMAL
[2021-03-28] MEDS: INSULIN SLIDING SCALE (NOVOLOG) 1 VIAL SQ SCH ×2 (06:53→21:44)
[2021-03-28] MEDS: DEXTROSE 5%-0.45% SALINE 1,000 ML IV SCH (07:11)
[2021-03-28 14:59] LABS: CALCIUM 9.1 mg/dL (8.5-10.1)
[2021-03-28 15:00] LABS: ALBUMIN 3.1 g/dl (3.4-5.0); BLOOD UREA NITROGEN 10.1 mg/dL (7-18)
[2021-03-28 15:03] LABS: CREATININE 0.9 mg/dL (0.55-1.3)
[2021-03-28 15:04] LABS: BILIRUBIN,TOTAL 0.4 mg/dL (0.2-1)
[2021-03-28 15:05] LABS: TOT PROT 6.8 g/dl (6.4-8.2)
[2021-03-28] MEDS: ACETAMINOPHEN 325 MG TABLET (FP) PO PRN (23:22)
[2021-03-28] MEDS: PIPERACILLIN/TAZOB 3.375 GM 3.375 GM in DEXTROSE 5%-WATER - 50 ML IVPB SCH (23:23)
[2021-03-28] MEDS ORDERED: PIPERACILLIN/TAZOB 3.375 GM 3.375 GM/50 ML BAG IVPB ONE (23:36)
[2021-03-28] MEDS ORDERED: ACETAMINOPHEN 325 MG TABLET (FP) ONE (23:36)
[2021-03-29 03:06] VITALS: BMI 19.1
[2021-03-29] MEDS ORDERED: DEXTROSE 5%-WATER - 50 ML IVPB ONE ×2 (05:15→13:16)
[2021-03-29] MEDS ORDERED: PIPERACILLIN/TAZOBACTAM 3.375 GM VIAL IVPB ONE ×2 (05:15→13:16)
[2021-03-29] MEDS: PIPERACILLIN/TAZOB 3.375 GM 3.375 GM in DEXTROSE 5%-WATER - 50 ML IVPB SCH (05:32)
[2021-03-29] MEDS: INSULIN SLIDING SCALE (NOVOLOG) 1 VIAL SQ SCH ×4 (06:18→22:27)
[2021-03-29] MEDS: DEXTROSE 5%-0.45% SALINE 1,000 ML IV SCH ×2 (06:20→12:17)
[2021-03-29] MEDS: ACETAMINOPHEN 325 MG TABLET (FP) PO PRN ×3 (07:25→22:28)
[2021-03-29 09:35] LABS: BASO % 1.1 % (0-2.0); HEMATOCRIT 34.6 % (32.4-45.2); HEMOGLOBIN 11.6 GM/dL (10.7-15.3); LYMPH % 19.1 % (8-40); MCH 26.6 pg (25.7-33.7); MCHC 33.4 g/dl (32.0-36.0); MEAN CELL VOLUME 79.5 fl (80-96); MEAN PLT VOLUME 8.2 fl (7.5-11.1); MONO % 11.1 % (3.8-10.2); NEUT % 67.7 % (42.8-82.8); PLATELET COUNT 453 10^3/uL (134-434); RBC 4.35 M/mm3 (3.60-5.2); WHITE BLOOD COUNT 7.3 K/mm3 (4.0-10.0)
[2021-03-29 09:54] LABS: CALCIUM 8.9 mg/dL (8.5-10.1)
[2021-03-29 09:55] LABS: ALBUMIN 3.1 g/dl (3.4-5.0); BLOOD UREA NITROGEN 8.8 mg/dL (7-18)
[2021-03-29 09:58] LABS: CREATININE 0.8 mg/dL (0.55-1.3)
[2021-03-29] MEDS ORDERED: PIPERACILLIN/TAZOB 3.375 GM 3.375 GM in DEXTROSE 5%-WATER - 50 ML IVPB SCH ×2 (10:00→14:00)
[2021-03-29 14:47] LABS: BASO % 1.1 % (0-2.0); EOS % 2.4 % (0-4.5); HEMATOCRIT 32.6 % (32.4-45.2); HEMOGLOBIN 11.1 GM/dL (10.7-15.3); LYMPH % 18.3 % (8-40); MCH 26.9 pg (25.7-33.7); MCHC 33.9 g/dl (32.0-36.0); MEAN CELL VOLUME 79.3 fl (80-96); MEAN PLT VOLUME 7.7 fl (7.5-11.1); MONO % 10.8 % (3.8-10.2); NEUT % 67.4 % (42.8-82.8); PLATELET COUNT 421 10^3/uL (134-434); RBC 4.12 M/mm3 (3.60-5.2); RDW 14.2 % (11.6-15.6); WHITE BLOOD COUNT 6.4 K/mm3 (4.0-10.0)
[2021-03-29] MEDS ORDERED: DEXTROSE 50%-WATER - 25 GM/50 ML VIAL IVPUSH PRN (20:05)
[2021-03-30] MEDS: DEXTROSE 5%-0.45% SALINE 1,000 ML IV SCH ×2 (06:54→22:14)
[2021-03-30] MEDS: INSULIN SLIDING SCALE (NOVOLOG) 1 VIAL SQ SCH ×4 (06:55→22:11)
[2021-03-30 09:17] LABS: BASO % 0.9 % (0-2.0); EOS % 3.1 % (0-4.5); HEMOGLOBIN 11.9 GM/dL (10.7-15.3); MCH 27.4 pg (25.7-33.7); MEAN CELL VOLUME 78.4 fl (80-96); MEAN PLT VOLUME 7.7 fl (7.5-11.1); MONO % 8.8 % (3.8-10.2); NEUT % 70.2 % (42.8-82.8); PLATELET COUNT 460 10^3/uL (134-434); RBC 4.34 M/mm3 (3.60-5.2); RDW 14.1 % (11.6-15.6); WHITE BLOOD COUNT 7.6 K/mm3 (4.0-10.0)
[2021-03-30 10:07] LABS: CALCIUM 9.3 mg/dL (8.5-10.1)
[2021-03-30 10:08] LABS: ALBUMIN 3.2 g/dl (3.4-5.0); BLOOD UREA NITROGEN 10.9 mg/dL (7-18)
[2021-03-30 10:12] LABS: CREATININE 0.8 mg/dL (0.55-1.3)
[2021-03-30 10:13] LABS: BILIRUBIN,TOTAL 0.4 mg/dL (0.2-1); TOT PROT 7.1 g/dl (6.4-8.2)
[2021-03-30] MEDS: ACETAMINOPHEN 325 MG TABLET (FP) PO PRN (11:41)
[2021-03-31] MEDS: INSULIN SLIDING SCALE (NOVOLOG) 1 VIAL SQ SCH ×4 (08:48→22:09)
[2021-03-31] MEDS: ACETAMINOPHEN 325 MG TABLET (FP) PO PRN ×2 (09:37→16:27)
[2021-03-31] MEDS: DEXTROSE 5%-0.45% SALINE 1,000 ML IV SCH (16:19)
[2021-03-31] MEDS: FLUDROCORTISONE ACETATE 0.1 MG TABLET (FP) PO SCH (22:09)
[2021-03-31] MEDS ORDERED: MAG HYDROX/AL HYDROX/SIMETH 30 ML UNIT-DOSE CUP PO ONE (22:45)
[2021-04-01] MEDS: INSULIN SLIDING SCALE (NOVOLOG) 1 VIAL SQ SCH ×2 (06:21→11:20)
[2021-04-01 06:40] VITALS: BP 147/76; TEMP 99.4
[2021-04-01 06:43] VITALS: PULSE 77
[2021-04-01] MEDS: FLUDROCORTISONE ACETATE 0.1 MG TABLET (FP) PO SCH (09:48)
[2021-04-01] MEDS: ACETAMINOPHEN 325 MG TABLET (FP) PO PRN (09:48)
[2021-04-01] MEDS: DEXTROSE 5%-0.45% SALINE 1,000 ML IV SCH (13:32)
== END 2021-04-01 14:33 | disposition home or self-care (01) | DRG 83 ==
LOC: JER 22:33 → JERBED 03-27 05:20 → J5S 03-29 02:24
PROVIDERS: ADMIT Internal Medicine; ATTEND Internal Medicine
DX: S06.5X9A Traumatic subdural hemorrhage with loss of consciousness of unspecified duration, initial encounter (principal); E87.1 Hypo-osmolality and hyponatremia; S06.4X0A Epidural hemorrhage without loss of consciousness, initial encounter; E11.9 Type 2 diabetes mellitus without complications; R19.00 Intra-abdominal and pelvic swelling, mass and lump, unspecified site; K21.9 Gastro-esophageal reflux disease without esophagitis; D35.2 Benign neoplasm of pituitary gland; E78.5 Hyperlipidemia, unspecified; M25.511 Pain in right shoulder; G47.30 Sleep apnea, unspecified; W01.0XXA Fall on same level from slipping, tripping and stumbling without subsequent striking against object, initial encounter; Y92.090 Kitchen in other non-institutional residence as the place of occurrence of the external cause; F03.90 Unspecified dementia, unspecified severity, without behavioral disturbance, psychotic disturbance, mood disturbance, and anxiety; R26.81 Unsteadiness on feet; D72.829 Elevated white blood cell count, unspecified
CPT/HCPCS: 36415; 70450-TC; 70551-TC; 71045-TC-FY; 72125-TC; 72128-TC; 72131-TC; 72170-TC-FY; 73030-TC-RT-FY; 80053; 81003; 82533; 82962; 84146; 84439; 84443; 84481; 85025; 85610; 85730; 86850; 86900; 86901; 87040; 87086; 93005; 93010; 97116-GP; 97162-GP; 99285-25; C9803-CS; U0003; U0005

== ENCOUNTER 2021-08-17 11:00 | Inpatient (IN) | payer OTHER ==
[2021-08-17 11:30] VITALS: BMI 16.6
[2021-08-17] MEDS ORDERED: SODIUM CHLORIDE 0.9% 500 ML INFUS.BAG IV ONE (12:22)
[2021-08-17] MEDS ORDERED: ONDANSETRON 4 MG/2 ML VIAL IVPUSH ONE (12:24)
[2021-08-17] MEDS ORDERED: ONDANSETRON 4 MG/2 ML VIAL ONE (12:43)
[2021-08-17 13:31] LABS: HEMATOCRIT 34.7 % (32.4-45.2); MCH 30.7 pg (25.7-33.7); MCHC 34.6 g/dl (32.0-36.0); MEAN CELL VOLUME 88.6 fl (80-96); MEAN PLT VOLUME 8.2 fl (7.5-11.1); PLATELET COUNT 544 10^3/uL (134-434); RBC 3.92 M/mm3 (3.60-5.2); WHITE BLOOD COUNT 10.6 K/mm3 (4.0-10.0)
[2021-08-17 13:56] LABS: ANISOCYTOSIS 0; HELMET CELLS 0; HOWELL-JOLLY BODIES 0; MACROCYTOSIS 0; OVALOCYTE 0; ROULEAU 0; SICKELED CELLS 0; TARGET CELLS 0; TEAR DROP CELLS 0; TOXIC GRANULATION 0
[2021-08-17 14:14] LABS: CHLORIDE 103 mmol/L (98-107); SODIUM 135 mmol/L (136-145)
[2021-08-17 14:16] LABS: CALCIUM 9.3 mg/dL (8.5-10.1)
[2021-08-17 14:17] LABS: ALBUMIN 2.8 g/dl (3.4-5.0); BLOOD UREA NITROGEN 17.1 mg/dL (7-18); CO2 23 mmol/L (21-32); GLUCOSE,RANDOM 91 mg/dL (74-106)
[2021-08-17 14:20] LABS: CREATININE 1.4 mg/dL (0.55-1.3); PHOSPHOROUS 4.8 mg/dL (2.5-4.9); SGOT/AST 77 U/L (15-37)
[2021-08-17 14:21] LABS: BILIRUBIN,TOTAL 0.8 mg/dL (0.2-1)
[2021-08-17 14:22] LABS: TOT PROT 7.8 g/dl (6.4-8.2)
[2021-08-17 14:23] LABS: ALK PHOS 94 U/L (45-117)
[2021-08-17 14:25] LABS: N-TERMINAL BNP 290.7 pg/ml (5-125)
[2021-08-17 14:27] LABS: ANION GAP 9 MMOL/L (8-16); SGPT/ALT 20 U/L (13-61)
[2021-08-17 14:45] LABS: EPI CELLS >36 /uL (0-25.1); HYALINE CASTS 12 /uL (0-3.1); URINE APPEARANCE CLOUDY; URINE BACTERIA 25 /uL (0-1359); URINE BILIRUBIN 1+ (NEGATIVE); URINE COLOR DK YELLOW; URINE GLUCOSE (UA) NEGATIVE (NEGATIVE); URINE KETONE TRACE (NEGATIVE); URINE LEUK ESTERASE 2+ (NEGATIVE); URINE NITRITE NEGATIVE (NEGATIVE); URINE PROTEIN 1+ (NEGATIVE); URINE RBC 7 /uL (0-23.9); URINE WBC 232 /uL (0-25.8)
[2021-08-17 16:20] LABS: BLOOD UREA NITROGEN 14.1 mg/dL (7-18); MAGNESIUM 2.5 mg/dL (1.8-2.4)
[2021-08-17 16:23] LABS: CREATININE 1.1 mg/dL (0.55-1.3); PHOSPHOROUS 3.9 mg/dL (2.5-4.9)
[2021-08-17 16:27] LABS: N-TERMINAL BNP 254.1 pg/ml (5-125)
[2021-08-17] MEDS ORDERED: CEFTRIAXONE 1 GM in DEXTROSE 5%-WATER - 50 ML IVPB ONE (18:27)
[2021-08-17] MEDS ORDERED: CEFTRIAXONE 1 GM/50 ML BAG ONE (18:49)
[2021-08-18 07:12] LABS: BASO % 0.9 % (0-2.0); EOS % 1.7 % (0-4.5); HEMOGLOBIN 11.7 GM/dL (10.7-15.3); LYMPH % 21.1 % (8-40); MCH 30.3 pg (25.7-33.7); MCHC 34.3 g/dl (32.0-36.0); MEAN CELL VOLUME 88.3 fl (80-96); MEAN PLT VOLUME 8.3 fl (7.5-11.1); MONO % 8.3 % (3.8-10.2); PLATELET COUNT 588 10^3/uL (134-434); RBC 3.85 M/mm3 (3.60-5.2); RDW 14.9 % (11.6-15.6); WHITE BLOOD COUNT 10.2 K/mm3 (4.0-10.0)
[2021-08-18 07:52] LABS: ALBUMIN 2.9 g/dl (3.4-5.0); CALCIUM 9.4 mg/dL (8.5-10.1)
[2021-08-18 07:53] LABS: BLOOD UREA NITROGEN 10.5 mg/dL (7-18)
[2021-08-18 07:57] LABS: BILIRUBIN,TOTAL 0.9 mg/dL (0.2-1); TOT PROT 7.1 g/dl (6.4-8.2)
[2021-08-18] MEDS ORDERED: levETIRAcetam 500 MG/5 ML INJECTION VIAL IVPB ONE (10:44)
[2021-08-18] MEDS: levETIRAcetam 500 MG/5 ML INJECTION VIAL IVPB SCH ×2 (11:00→22:40)
[2021-08-18] MEDS: ESCITALOPRAM OXALATE 10 MG TABLET PO SCH (12:00)
[2021-08-18] MEDS: amLODIPine BESYLATE 5 MG TABLET (FP) PO SCH (12:00)
[2021-08-19 07:42] LABS: ALBUMIN 2.8 g/dl (3.4-5.0); BLOOD UREA NITROGEN 10.2 mg/dL (7-18); CALCIUM 8.9 mg/dL (8.5-10.1)
[2021-08-19 07:43] LABS: HEMOGLOBIN 11.6 GM/dL (10.7-15.3); MCH 30.5 pg (25.7-33.7); MCHC 34.2 g/dl (32.0-36.0); MEAN PLT VOLUME 8.1 fl (7.5-11.1); PLATELET COUNT 627 10^3/uL (134-434); RBC 3.82 M/mm3 (3.60-5.2); RDW 14.3 % (11.6-15.6); WHITE BLOOD COUNT 9.1 K/mm3 (4.0-10.0)
[2021-08-19 07:48] LABS: BILIRUBIN,TOTAL 0.5 mg/dL (0.2-1); TOT PROT 6.8 g/dl (6.4-8.2)
[2021-08-19] MEDS: amLODIPine BESYLATE 5 MG TABLET (FP) PO SCH (10:19)
[2021-08-19] MEDS: levETIRAcetam 500 MG/5 ML INJECTION VIAL IVPB SCH ×2 (10:19→22:46)
[2021-08-19] MEDS: ESCITALOPRAM OXALATE 10 MG TABLET PO SCH (10:19)
[2021-08-19] MEDS: DEXTROSE 5%-0.45% SALINE 1,000 ML IV SCH ×2 (10:21→23:04)
[2021-08-20] MEDS: DEXTROSE 5%-0.45% SALINE 1,000 ML IV SCH ×3 (00:15→22:22)
[2021-08-20] MEDS: amLODIPine BESYLATE 5 MG TABLET (FP) PO SCH (09:59)
[2021-08-20] MEDS: ESCITALOPRAM OXALATE 10 MG TABLET PO SCH (10:00)
[2021-08-20] MEDS: levETIRAcetam 500 MG/5 ML INJECTION VIAL IVPB SCH ×2 (10:02→22:21)
[2021-08-21] MEDS: levETIRAcetam 500 MG/5 ML INJECTION VIAL IVPB SCH ×2 (09:41→21:10)
[2021-08-21] MEDS: amLODIPine BESYLATE 5 MG TABLET (FP) PO SCH (09:41)
[2021-08-21] MEDS: ESCITALOPRAM OXALATE 10 MG TABLET PO SCH (09:41)
[2021-08-22 07:08] LABS: ACTIVATED PTT 30.4 SECONDS (25.2-36.5); INR 1.24 (0.83-1.09); PROTHROMBIN TIME (PATIENT) 14.3 SEC (9.7-13.0)
[2021-08-22] MEDS: amLODIPine BESYLATE 5 MG TABLET (FP) PO SCH (09:00)
[2021-08-22] MEDS: ESCITALOPRAM OXALATE 10 MG TABLET PO SCH (09:00)
[2021-08-22] MEDS: levETIRAcetam 500 MG/5 ML INJECTION VIAL IVPB SCH ×2 (09:00→21:06)
[2021-08-22] MEDS: DEXTROSE 5%-0.45% SALINE 1,000 ML IV SCH (22:00)
[2021-08-23 07:01] LABS: BASO % 1.3 % (0-2.0); EOS % 1.8 % (0-4.5); HEMATOCRIT 34.1 % (32.4-45.2); HEMOGLOBIN 11.9 GM/dL (10.7-15.3); LYMPH % 19.8 % (8-40); MCH 30.8 pg (25.7-33.7); MCHC 34.9 g/dl (32.0-36.0); MEAN CELL VOLUME 88.4 fl (80-96); MEAN PLT VOLUME 7.4 fl (7.5-11.1); MONO % 9.9 % (3.8-10.2); NEUT % 67.2 % (42.8-82.8); PLATELET COUNT 696 10^3/uL (134-434); RBC 3.86 M/mm3 (3.60-5.2); RDW 14.9 % (11.6-15.6); WHITE BLOOD COUNT 11.3 K/mm3 (4.0-10.0)
[2021-08-23 07:25] LABS: CALCIUM 9.3 mg/dL (8.5-10.1)
[2021-08-23 07:26] LABS: BLOOD UREA NITROGEN 8.2 mg/dL (7-18)
[2021-08-23 07:28] LABS: CREATININE 0.8 mg/dL (0.55-1.3)
[2021-08-23 07:30] LABS: BILIRUBIN,TOTAL 0.5 mg/dL (0.2-1); TOT PROT 6.5 g/dl (6.4-8.2)
[2021-08-23 07:33] LABS: ALBUMIN 2.7 g/dl (3.4-5.0)
[2021-08-23] MEDS: amLODIPine BESYLATE 5 MG TABLET (FP) PO SCH (11:03)
[2021-08-23] MEDS: levETIRAcetam 500 MG/5 ML INJECTION VIAL IVPB SCH (11:03)
[2021-08-23] MEDS: ESCITALOPRAM OXALATE 10 MG TABLET PO SCH (11:03)
[2021-08-23 19:01] VITALS: BP 114/71; PULSE 81; TEMP 98.6
== END 2021-08-23 06:45 | disposition home health service (06) | DRG 83 ==
LOC: JER 11:00 → JERBED 19:11 → J4W 08-18 19:54
PROVIDERS: ADMIT Internal Medicine; ATTEND Internal Medicine
DX: S06.5X9A Traumatic subdural hemorrhage with loss of consciousness of unspecified duration, initial encounter (principal); G81.93 Hemiplegia, unspecified affecting right nondominant side; X58.XXXA Exposure to other specified factors, initial encounter; Y93.9 Activity, unspecified; Y92.89 Other specified places as the place of occurrence of the external cause; Y99.9 Unspecified external cause status; D35.2 Benign neoplasm of pituitary gland; F03.90 Unspecified dementia, unspecified severity, without behavioral disturbance, psychotic disturbance, mood disturbance, and anxiety; I10 Essential (primary) hypertension; E78.5 Hyperlipidemia, unspecified; K21.9 Gastro-esophageal reflux disease without esophagitis
CPT/HCPCS: 0241U-QW; 36415; 70450-TC; 71045-TC-FY; 74176-TC; 80048; 80053; 81003; 82962; 83735; 83880; 84100; 84484; 85025; 85610; 85730; 87086; 93005; 93010; 97116-GP; 97162-GP; 99285-25

== ENCOUNTER 2023-10-21 14:23 | Inpatient (IN) | payer OTHER ==
[2023-10-21 15:00] LABS: VENOUS BASE EXCESS -3.9 mmol/L (-2-2); VENOUS O2 SATURATION 93.1 % (70-80); VENOUS PCO2 28.7 mmHg (38-52); VENOUS PH 7.432 (7.310-7.410)
[2023-10-21 15:02] LABS: BASO % 0.4 % (0-2.0); EOS % 0.8 % (0-4.5); HEMATOCRIT 45.2 % (32.4-45.2); HEMOGLOBIN 15.3 GM/dL (10.7-15.3); MCH 30.2 pg (25.7-33.7); MCHC 33.9 g/dl (32.0-36.0); MONO % 7.8 % (3.8-10.2); PLATELET COUNT 255 10^3/uL (134-434); RBC 5.08 M/mm3 (3.60-5.2); RDW 15.7 % (11.6-15.6); WHITE BLOOD COUNT 15.5 K/mm3 (4.0-10.0)
[2023-10-21 15:09] LABS: INR 1.12 (0.83-1.09); PROTHROMBIN TIME (PATIENT) 12.8 SEC (9.7-13.0)
[2023-10-21 15:12] LABS: ACTIVATED PTT 27.9 SECONDS (25.2-36.5)
[2023-10-21 15:21] LABS: CHLORIDE 106 mmol/L (98-107); POTASSIUM 4.6 mmol/L (3.5-5.1); SODIUM 135 mmol/L (136-145)
[2023-10-21 15:23] LABS: ALBUMIN 3.2 g/dl (3.4-5.0); CALCIUM 10.6 mg/dL (8.5-10.1)
[2023-10-21 15:24] LABS: ANION GAP 12 mmol/L (4-13); BLOOD UREA NITROGEN 32.5 mg/dL (7-18); CO2 18 mmol/L (21-32); GLUCOSE,RANDOM 98 mg/dL (74-106)
[2023-10-21 15:26] LABS: SGPT/ALT 54 U/L (13-61)
[2023-10-21 15:27] LABS: CHOLESTEROL 173 mg/dL (50-200); CREATININE 1.7 mg/dL (0.55-1.3); LDL CHOLESTEROL (ONLY SJRH) 90 mg/dL (5-100); SGOT/AST 62 U/L (15-37)
[2023-10-21 15:29] LABS: ALK PHOS 87 U/L (45-117); HDL CHOLESTEROL 21 mg/dL (40-60)
[2023-10-21 15:41] LABS: PH,URINE 5.5 (5.0-8.0); URINE APPEARANCE CLEAR; URINE BILIRUBIN NEGATIVE (NEGATIVE); URINE COLOR YELLOW; URINE GLUCOSE (UA) NEGATIVE (NEGATIVE); URINE KETONE NEGATIVE (NEGATIVE)
[2023-10-21 15:42] LABS: EPI CELLS 17 /uL (0-25.1); HYALINE CASTS 1 /uL (0-3.1); URINE BACTERIA 5 /uL (0-1359); URINE LEUK ESTERASE NEGATIVE (NEGATIVE); URINE NITRITE NEGATIVE (NEGATIVE); URINE PROTEIN 30 (NEGATIVE); URINE RBC 24 /uL (0-23.9); URINE WBC 16 /uL (0-25.8)
[2023-10-21] MEDS: CEFTRIAXONE 1,000 MG in DEXTROSE 5%-WATER - 50 ML IVPB ONE (16:20)
[2023-10-21] MEDS: ACETAMINOPHEN 1000 MG/100 ML BAG IVPB ONE (16:20)
[2023-10-21 16:25] VITALS: BMI 20.5
[2023-10-21] MEDS ORDERED: ACETAMINOPHEN INJECTION 100 ML IVPB ONE (16:38)
[2023-10-21] MEDS ORDERED: AZITHROMYCIN IVPB 500 MG/250 ML BAG IVPB ONE (16:39)
[2023-10-21] MEDS ORDERED: CEFTRIAXONE 1 GM/50 ML BAG ONE (16:39)
[2023-10-21] MEDS: AZITHROMYCIN IVPB 500 MG in DEXTROSE 5%-WATER - 250 ML IVPB ONE (17:07)
[2023-10-21] MEDS: SODIUM CHLORIDE 0.9% 500 ML INFUS.BAG IV ONE (18:22)
[2023-10-21] MEDS ORDERED: DEXAMETHASONE SOD PHOSPHATE 10 MG/1 ML VIAL ONE (21:37)
[2023-10-21] MEDS: DEXAMETHASONE SOD PHOSPHATE 10 MG/1 ML VIAL IVPUSH ONE (21:44)
[2023-10-22] MEDS: SODIUM CHLORIDE 1,000 ML IV SCH (04:41)
[2023-10-22 08:56] LABS: HEMATOCRIT 38.7 % (32.4-45.2); HEMOGLOBIN 12.8 GM/dL (10.7-15.3); MCH 30.3 pg (25.7-33.7); MCHC 33.1 g/dl (32.0-36.0); MEAN CELL VOLUME 91.5 fl (80-96); MEAN PLT VOLUME 10.3 fl (7.5-11.1); PLATELET COUNT 212 10^3/uL (134-434); RBC 4.23 M/mm3 (3.60-5.2); RDW 15.7 % (11.6-15.6); WHITE BLOOD COUNT 16.3 K/mm3 (4.0-10.0)
[2023-10-22 09:11] LABS: MAGNESIUM 1.7 mg/dL (1.8-2.4)
[2023-10-22 09:48] LABS: ANISOCYTOSIS 0; HELMET CELLS 0; HOWELL-JOLLY BODIES 0; MACROCYTOSIS 0; OVALOCYTE 0; ROULEAU 0; SICKELED CELLS 0; TARGET CELLS 0; TEAR DROP CELLS 0; TOXIC GRANULATION 0
[2023-10-22] MEDS ORDERED: AZITHROMYCIN IVPB 500 MG/250 ML BAG IVPB SCH (10:00)
[2023-10-22] MEDS: CEFTRIAXONE 1 GM in DEXTROSE 5%-WATER - 50 ML IVPB SCH (10:18)
[2023-10-22] MEDS: DEXAMETHASONE SOD PHOSPHATE 10 MG/1 ML VIAL IVPUSH SCH (10:19)
[2023-10-22] MEDS ORDERED: REMDESIVIR 200 MG in SODIUM CHLORIDE 250 ML IVPB ONE (16:00)
[2023-10-22] MEDS: amLODIPine BESYLATE 5 MG TABLET (FP) PO SCH (17:06)
[2023-10-22] MEDS: REMDESIVIR 200 MG in SODIUM CHLORIDE 250 ML IVPB ONE (17:44)
[2023-10-22] MEDS: levETIRAcetam 500 MG/5 ML INJECTION VIAL IVPB SCH (21:12)
[2023-10-22] MEDS: BUDESONIDE/FORMETEROL FUMARATE 80/4.5 mcg INHALER IH SCH (21:13)
[2023-10-23 09:07] LABS: BLOOD UREA NITROGEN 31.1 mg/dL (7-18); CALCIUM 8.9 mg/dL (8.5-10.1); CREATININE 1.8 mg/dL (0.55-1.3); POTASSIUM 5.1 mmol/L (3.5-5.1)
[2023-10-23 09:17] LABS: HEMATOCRIT 34.4 % (32.4-45.2); HEMOGLOBIN 11.8 GM/dL (10.7-15.3); MCH 30.2 pg (25.7-33.7); MCHC 34.2 g/dl (32.0-36.0); MEAN CELL VOLUME 88.4 fl (80-96); MEAN PLT VOLUME 9.9 fl (7.5-11.1); PLATELET COUNT 240 10^3/uL (134-434); RBC 3.89 M/mm3 (3.60-5.2); RDW 15.8 % (11.6-15.6); WHITE BLOOD COUNT 15.4 K/mm3 (4.0-10.0)
[2023-10-23 09:44] LABS: BLOOD UREA NITROGEN 27.8 mg/dL (7-18)
[2023-10-23 09:45] LABS: CALCIUM 8.9 mg/dL (8.5-10.1)
[2023-10-23 09:46] LABS: ALBUMIN 2.6 g/dl (3.4-5.0)
[2023-10-23 09:47] LABS: CREATININE 1.6 mg/dL (0.55-1.3)
[2023-10-23 09:49] LABS: TOT PROT 5.9 g/dl (6.4-8.2)
[2023-10-23 09:51] LABS: BILIRUBIN,TOTAL 0.4 mg/dL (0.2-1)
[2023-10-23] MEDS: FLUDROCORTISONE ACETATE 0.1 MG TABLET (FP) PO SCH (10:18)
[2023-10-23 10:42] LABS: ANISOCYTOSIS 0; HELMET CELLS 0; HOWELL-JOLLY BODIES 0; MACROCYTOSIS 0; OVALOCYTE 0; ROULEAU 0; SICKELED CELLS 0; TARGET CELLS 0; TEAR DROP CELLS 0; TOXIC GRANULATION 0
[2023-10-23] MEDS ORDERED: REMDESIVIR 100 MG in SODIUM CHLORIDE 250 ML IVPB SCH (16:00)
[2023-10-23] MEDS: LACTATED RINGERS SOLUTION 1,000 ML/1,000 ML INFUS.BAG IV SCH (16:03)
[2023-10-23] MEDS: REMDESIVIR 100 MG in SODIUM CHLORIDE 250 ML IVPB SCH (16:05)
[2023-10-23 17:35] LABS: EPI CELLS 11 /uL (0-25.1); HYALINE CASTS 1 /uL (0-3.1); URINE APPEARANCE CLEAR; URINE BACTERIA 8 /uL (0-1359); URINE BILIRUBIN NEGATIVE (NEGATIVE); URINE COLOR YELLOW; URINE GLUCOSE (UA) NEGATIVE (NEGATIVE); URINE KETONE NEGATIVE (NEGATIVE); URINE LEUK ESTERASE NEGATIVE (NEGATIVE); URINE NITRITE NEGATIVE (NEGATIVE); URINE PROTEIN 1+ (NEGATIVE); URINE RBC 63 /uL (0-23.9); URINE UROBILINOGEN 0.2 mg/dL (0.2-1.0); URINE WBC 14 /uL (0-25.8)
[2023-10-24] MEDS: amLODIPine BESYLATE 5 MG TABLET (FP) PO ONE (06:32)
[2023-10-24 09:00] LABS: HEMATOCRIT 35.1 % (32.4-45.2); HEMOGLOBIN 11.9 GM/dL (10.7-15.3); MCH 30.2 pg (25.7-33.7); MCHC 33.8 g/dl (32.0-36.0); MEAN CELL VOLUME 89.2 fl (80-96); MEAN PLT VOLUME 10.1 fl (7.5-11.1); PLATELET COUNT 259 10^3/uL (134-434); RBC 3.93 M/mm3 (3.60-5.2); RDW 15.9 % (11.6-15.6); WHITE BLOOD COUNT 15.8 K/mm3 (4.0-10.0)
[2023-10-24 09:19] LABS: POTASSIUM 3.9 mmol/L (3.5-5.1)
[2023-10-24 09:21] LABS: ALBUMIN 2.6 g/dl (3.4-5.0); CALCIUM 9.4 mg/dL (8.5-10.1)
[2023-10-24 09:24] LABS: CREATININE 1.3 mg/dL (0.55-1.3)
[2023-10-24 09:26] LABS: BILIRUBIN,TOTAL 0.3 mg/dL (0.2-1); TOT PROT 6.1 g/dl (6.4-8.2)
[2023-10-24] MEDS: ACETAMINOPHEN 1000 MG/100 ML BAG IVPB PRN (10:33)
[2023-10-24 11:26] LABS: ANISOCYTOSIS 0; HELMET CELLS 0; HOWELL-JOLLY BODIES 0; MACROCYTOSIS 0; OVALOCYTE 0; ROULEAU 0; SICKELED CELLS 0; TARGET CELLS 0; TEAR DROP CELLS 0; TOXIC GRANULATION 0
[2023-10-25] MEDS: COSYNTROPIN 0.25 MG VIAL IVPUSH ONE (06:47)
[2023-10-25] MEDS: amLODIPine BESYLATE 5 MG TABLET (FP) PO ONE (19:58)
[2023-10-26] MEDS: amLODIPine BESYLATE 5 MG TABLET (FP) PO ONE (20:37)
[2023-10-26] MEDS: ACETAMINOPHEN 325 MG TABLET (FP) PO PRN (20:37)
[2023-10-26] MEDS: INSULIN (NOVOLOG) ASPART 100 UNITS/ML 10ML VIAL SQ SCH (21:52)
[2023-10-26] MEDS: LABETALOL HCL 200 MG TABLET (FP) PO SCH (23:35)
[2023-10-27 08:36] LABS: ALBUMIN 2.6 g/dl (3.4-5.0); BLOOD UREA NITROGEN 33.8 mg/dL (7-18); CALCIUM 9.1 mg/dL (8.5-10.1)
[2023-10-27 08:40] LABS: CREATININE 1.3 mg/dL (0.55-1.3)
[2023-10-27 08:42] LABS: BILIRUBIN,TOTAL 0.3 mg/dL (0.2-1)
[2023-10-28] MEDS: FAMOTIDINE 20 MG/50 ML IVPB 20 MG/50 ML MG IVPB ONE (13:58)
[2023-10-29 02:26] VITALS: RESP 18
[2023-10-30 08:24] LABS: HEMATOCRIT 44.3 % (32.4-45.2); MCH 30.6 pg (25.7-33.7); MCHC 33.8 g/dl (32.0-36.0); MEAN CELL VOLUME 90.4 fl (80-96); PLATELET COUNT 431 10^3/uL (134-434); RDW 16.1 % (11.6-15.6); WHITE BLOOD COUNT 11.9 K/mm3 (4.0-10.0)
[2023-10-30 08:29] LABS: POTASSIUM 4.7 mmol/L (3.5-5.1)
[2023-10-30 08:34] LABS: ALBUMIN 2.6 g/dl (3.4-5.0); BLOOD UREA NITROGEN 44.7 mg/dL (7-18); CALCIUM 9.1 mg/dL (8.5-10.1)
[2023-10-30 08:38] LABS: CREATININE 1.3 mg/dL (0.55-1.3)
[2023-10-30 08:39] LABS: BILIRUBIN,TOTAL 0.3 mg/dL (0.2-1); TOT PROT 6.2 g/dl (6.4-8.2)
[2023-10-30 10:43] LABS: ANISOCYTOSIS 0; HELMET CELLS 0; HOWELL-JOLLY BODIES 0; MACROCYTOSIS 0; OVALOCYTE 0; ROULEAU 0; SICKELED CELLS 0; TARGET CELLS 0; TEAR DROP CELLS 0; TOXIC GRANULATION 0
[2023-10-30 12:30] VITALS: BP 160/81; PULSE 67; TEMP 97.7
== END 2023-10-30 12:25 | disposition home or self-care (01) | DRG 177 ==
LOC: JER 14:23 → JERBED 16:35 → J4S 22:37
PROVIDERS: ADMIT Internal Medicine; ATTEND Internal Medicine
PROC: XW033E5 Introduction of Remdesivir Anti-infective into Peripheral Vein, Percutaneous Approach, New Technology Group 5 (ICD-10-PCS; principal; 2023-10-22)
DX: U07.1 COVID-19 (principal); G93.41 Metabolic encephalopathy; J12.82 Pneumonia due to coronavirus disease 2019; J96.01 Acute respiratory failure with hypoxia; I24.89 Other forms of acute ischemic heart disease; N17.9 Acute kidney failure, unspecified; D35.2 Benign neoplasm of pituitary gland; E78.5 Hyperlipidemia, unspecified; K21.9 Gastro-esophageal reflux disease without esophagitis; G30.9 Alzheimer's disease, unspecified; F02.80 Dementia in other diseases classified elsewhere, unspecified severity, without behavioral disturbance, psychotic disturbance, mood disturbance, and anxiety; R56.9 Unspecified convulsions; R41.82 Altered mental status, unspecified; E11.9 Type 2 diabetes mellitus without complications
CPT/HCPCS: 0241U-QW; 36415; 70450-TC; 70496-TC; 70498-TC; 71045-TC-FY; 74018-TC-FY; 76775-TC; 80048; 80053; 80061; 81003; 82024; 82533; 82728; 82803; 82962; 83036; 83605; 83615; 83735; 84146; 84443; 84484; 85025; 85379; 85610; 85730; 86140; 86850; 86900; 86901; 87040; 87086; 87635; 93005; 93010; 93880-TC; 97116-GP; 97162-GP; 99285-25; J0131; J0248; J0834; J1100

== ENCOUNTER 2023-11-03 10:58 | Inpatient (IN) | payer OTHER ==
[2023-11-03] MEDS ORDERED: ACETAMINOPHEN INJECTION 100 ML IVPB ONE (12:03)
[2023-11-03] MEDS: ACETAMINOPHEN 1000 MG/100 ML BAG IVPB ONE (12:46)
[2023-11-03] MEDS: SODIUM CHLORIDE 0.9% 1000 ML INFUS.BAG IV STA (12:46)
[2023-11-03 13:24] LABS: VENOUS BASE EXCESS -5.2 mmol/L (-2-2); VENOUS O2 SATURATION 39.4 % (70-80); VENOUS PCO2 42.5 mmHg (38-52); VENOUS PH 7.31 (7.310-7.410)
[2023-11-03 13:37] LABS: ACTIVATED PTT 25.5 SECONDS (25.2-36.5); INR 1.16 (0.83-1.09)
[2023-11-03 13:54] LABS: CHLORIDE 98 mmol/L (98-107); SODIUM 129 mmol/L (136-145)
[2023-11-03 13:56] LABS: ALBUMIN 2.5 g/dl (3.4-5.0); CALCIUM 9.1 mg/dL (8.5-10.1); CO2 22 mmol/L (21-32); GLUCOSE,RANDOM 95 mg/dL (74-106)
[2023-11-03 13:59] LABS: CREATININE 1.1 mg/dL (0.55-1.3); SGOT/AST 85 U/L (15-37)
[2023-11-03 14:00] LABS: ANION GAP 9 mmol/L (4-13); POTASSIUM 6.6 mmol/L (3.5-5.1); SGPT/ALT 34 U/L (13-61)
[2023-11-03 14:01] LABS: TOT PROT 6.5 g/dl (6.4-8.2)
[2023-11-03 14:02] LABS: ALK PHOS 68 U/L (45-117); BILIRUBIN,TOTAL 1.6 mg/dL (0.2-1)
[2023-11-03 14:16] LABS: LACTIC ACID 3.3 mmol/L (0.4-2.0)
[2023-11-03 15:11] LABS: HEMATOCRIT 37.4 % (32.4-45.2); HEMOGLOBIN 12.3 GM/dL (10.7-15.3); MCHC 32.9 g/dl (32.0-36.0); MEAN CELL VOLUME 91.2 fl (80-96); MEAN PLT VOLUME 8.6 fl (7.5-11.1); PLATELET COUNT 198 10^3/uL (134-434); RDW 15.7 % (11.6-15.6); WHITE BLOOD COUNT 24.2 K/mm3 (4.0-10.0)
[2023-11-03 15:42] LABS: EPI CELLS 10 /uL (0-25.1); HYALINE CASTS 0 /uL (0-3.1); URINE APPEARANCE CLEAR; URINE BACTERIA 0 /uL (0-1359); URINE BILIRUBIN NEGATIVE (NEGATIVE); URINE COLOR DK YELLOW; URINE GLUCOSE (UA) NEGATIVE (NEGATIVE); URINE KETONE NEGATIVE (NEGATIVE); URINE LEUK ESTERASE NEGATIVE (NEGATIVE); URINE NITRITE NEGATIVE (NEGATIVE); URINE PROTEIN 1+ (NEGATIVE); URINE RBC 6 /uL (0-23.9); URINE WBC 7 /uL (0-25.8)
[2023-11-03] MEDS ORDERED: PIPERACILLIN/TAZOB 4.5 GM 4.5 GM/100 ML BAG IVPB ONE (15:42)
[2023-11-03] MEDS ORDERED: VANCOMYCIN 1 GRAM (PRE-DOCKED) 1,000 MG/250 ML BAG IVPB ONE (15:43)
[2023-11-03] MEDS: PIPERACILLIN/TAZOB 4.5 GM 4.5 GM/100 ML BAG IVPB ONE (15:47)
[2023-11-03 15:57] LABS: PLATELET ESTIMATE ADEQUATE
[2023-11-03 16:06] LABS: POTASSIUM 4.9 mmol/L (3.5-5.1)
[2023-11-03 16:09] LABS: ALBUMIN 1.9 g/dl (3.4-5.0); BLOOD UREA NITROGEN 17.6 mg/dL (7-18); CALCIUM 7.6 mg/dL (8.5-10.1)
[2023-11-03 16:12] LABS: CREATININE 0.8 mg/dL (0.55-1.3)
[2023-11-03 16:13] LABS: BILIRUBIN,TOTAL 0.8 mg/dL (0.2-1); TOT PROT 4.6 g/dl (6.4-8.2)
[2023-11-03] MEDS: VANCOMYCIN 1,000 MG in DEXTROSE 5%-WATER - 250 ML IVPB ONE (16:30)
[2023-11-03] MEDS ORDERED: HYDROCORTISONE SOD SUCCINATE 100 MG/2 ML VIAL ONE (18:55)
[2023-11-03] MEDS: HYDROCORTISONE SOD SUCCINATE 100 MG/2 ML VIAL IVPB ONE (18:58)
[2023-11-03] MEDS: DEXTROSE 5%-0.45% SALINE 1,000 ML IV SCH (23:07)
[2023-11-04 06:12] LABS: HEMATOCRIT 37.4 % (32.4-45.2); HEMOGLOBIN 12.4 GM/dL (10.7-15.3); MCH 30.5 pg (25.7-33.7); MCHC 33.2 g/dl (32.0-36.0); MEAN CELL VOLUME 91.8 fl (80-96); MEAN PLT VOLUME 8.8 fl (7.5-11.1); PLATELET COUNT 181 10^3/uL (134-434); RBC 4.07 M/mm3 (3.60-5.2); RDW 15.7 % (11.6-15.6); WHITE BLOOD COUNT 19.6 K/mm3 (4.0-10.0)
[2023-11-04 06:31] LABS: POTASSIUM 4.7 mmol/L (3.5-5.1)
[2023-11-04 06:34] LABS: BLOOD UREA NITROGEN 13.5 mg/dL (7-18); CALCIUM 8.2 mg/dL (8.5-10.1)
[2023-11-04 06:38] LABS: CREATININE 1.1 mg/dL (0.55-1.3)
[2023-11-04] MEDS ORDERED: ACETAMINOPHEN 1000 MG/100 ML BAG IVPB PRN (08:01)
[2023-11-04 08:47] LABS: ANISOCYTOSIS 0; HELMET CELLS 0; HOWELL-JOLLY BODIES 0; MACROCYTOSIS 0; OVALOCYTE 0; ROULEAU 0; SICKELED CELLS 0; TARGET CELLS 0; TEAR DROP CELLS 0; TOXIC GRANULATION 0
[2023-11-04] MEDS: PIPERACILLIN/TAZOB 2.25 GM 2.25 GM in DEXTROSE 5%-WATER - 50 ML IVPB SCH ×2 (09:57→21:15)
[2023-11-04 13:35] VITALS: BMI 23.4
[2023-11-04] MEDS: DEXTROSE 5%-0.45% SALINE 1,000 ML IV SCH (13:45)
[2023-11-04] MEDS ORDERED: VANCOMYCIN 500 MG in DEXTROSE 5%-WATER - 100 ML IVPB SCH (16:00)
[2023-11-04] MEDS: VANCOMYCIN 500 MG in DEXTROSE 5%-WATER - 100 ML IVPB SCH (18:39)
[2023-11-05] MEDS: ENOXAPARIN NA (PORCINE) 40 MG/0.4 ML DISP.SYRIN SQ SCH (15:19)
[2023-11-05] MEDS: ACETAMINOPHEN 500 MG TABLET (FP) PO PRN (21:22)
[2023-11-06 08:09] LABS: BASO % 0.4 % (0-2.0); EOS % 0.8 % (0-4.5); HEMATOCRIT 37.2 % (32.4-45.2); HEMOGLOBIN 12.5 GM/dL (10.7-15.3); LYMPH % 16.2 % (8-40); MCH 30.7 pg (25.7-33.7); MCHC 33.5 g/dl (32.0-36.0); MEAN CELL VOLUME 91.6 fl (80-96); MEAN PLT VOLUME 9.6 fl (7.5-11.1); NEUT % 71.6 % (42.8-82.8); PLATELET COUNT 150 10^3/uL (134-434); RBC 4.06 M/mm3 (3.60-5.2); RDW 15.3 % (11.6-15.6); WHITE BLOOD COUNT 9.3 K/mm3 (4.0-10.0)
[2023-11-06 08:23] LABS: POTASSIUM 3.9 mmol/L (3.5-5.1)
[2023-11-06 08:26] LABS: CALCIUM 8.4 mg/dL (8.5-10.1)
[2023-11-06 08:27] LABS: ALBUMIN 1.9 g/dl (3.4-5.0); BLOOD UREA NITROGEN 9.5 mg/dL (7-18)
[2023-11-06] MEDS: PANTOPRAZOLE 40 MG TABLET PO SCH (12:16)
[2023-11-06] MEDS: levETIRAcetam 500 MG TABLET (FP) PO SCH (12:16)
[2023-11-06] MEDS: INSULIN ASPART SLIDING SCALE (NOVOLOG) 1 VIAL SQ SCH (17:02)
[2023-11-07] MEDS: COSYNTROPIN 0.25 MG VIAL IVPUSH ONE (06:34)
[2023-11-07 08:18] LABS: HEMATOCRIT 32.2 % (32.4-45.2); HEMOGLOBIN 10.9 GM/dL (10.7-15.3); MCH 30.7 pg (25.7-33.7); MEAN CELL VOLUME 90.5 fl (80-96); MEAN PLT VOLUME 9.3 fl (7.5-11.1); PLATELET COUNT 147 10^3/uL (134-434); RBC 3.56 M/mm3 (3.60-5.2); RDW 15.3 % (11.6-15.6); WHITE BLOOD COUNT 7.3 K/mm3 (4.0-10.0)
[2023-11-07 08:38] LABS: POTASSIUM 3.1 mmol/L (3.5-5.1)
[2023-11-07 08:42] LABS: ALBUMIN 1.7 g/dl (3.4-5.0); CALCIUM 7.9 mg/dL (8.5-10.1)
[2023-11-07 08:45] LABS: CREATININE 0.9 mg/dL (0.55-1.3)
[2023-11-07 08:47] LABS: TOT PROT 4.6 g/dl (6.4-8.2)
[2023-11-07 09:17] LABS: ANISOCYTOSIS 0; HELMET CELLS 0; HOWELL-JOLLY BODIES 0; MACROCYTOSIS 0; OVALOCYTE 0; ROULEAU 0; SICKELED CELLS 0; TARGET CELLS 0; TEAR DROP CELLS 0; TOXIC GRANULATION 0
[2023-11-07] MEDS: ESCITALOPRAM OXALATE 10 MG TABLET PO SCH (09:44)
[2023-11-07] MEDS: FLUDROCORTISONE ACETATE 0.1 MG TABLET (FP) PO SCH (09:44)
[2023-11-07] MEDS: KCL 10 MEQ IVPB 10 MEQ/100 ML INFUS.BAG IVPB SCH (11:02)
[2023-11-07] MEDS: POTASSIUM CHLORIDE ORAL LIQUID 20 MEQ/15 ML PO ONE (11:16)
[2023-11-08 06:56] LABS: BASO % 0.8 % (0-2.0); EOS % 1.7 % (0-4.5); HEMOGLOBIN 10.5 GM/dL (10.7-15.3); LYMPH % 22.8 % (8-40); MCH 30.8 pg (25.7-33.7); MCHC 33.8 g/dl (32.0-36.0); MEAN CELL VOLUME 91.1 fl (80-96); MEAN PLT VOLUME 9.1 fl (7.5-11.1); MONO % 9.4 % (3.8-10.2); NEUT % 65.3 % (42.8-82.8); PLATELET COUNT 153 10^3/uL (134-434); RDW 14.9 % (11.6-15.6)
[2023-11-08 07:09] LABS: POTASSIUM 3.9 mmol/L (3.5-5.1)
[2023-11-08 07:10] LABS: ALBUMIN 1.6 g/dl (3.4-5.0); BLOOD UREA NITROGEN 4.9 mg/dL (7-18); CALCIUM 7.9 mg/dL (8.5-10.1)
[2023-11-08 07:14] LABS: CREATININE 0.9 mg/dL (0.55-1.3)
[2023-11-08 07:15] LABS: BILIRUBIN,TOTAL 0.9 mg/dL (0.2-1); TOT PROT 4.4 g/dl (6.4-8.2)
[2023-11-08] MEDS: AMOX TR/POT CLAV 500MG/125MG TABLETS (FP) PO SCH (17:25)
[2023-11-09 12:28] VITALS: RESP 18
[2023-11-10 09:10] VITALS: BP 148/79; PULSE 75; TEMP 98.8
== END 2023-11-10 11:50 | disposition home or self-care (01) | DRG 872 ==
LOC: JER 10:58 → JERBED 20:04 → J4S 11-04 08:54 → UNDODISIN 11-10 12:12
PROVIDERS: ADMIT Internal Medicine; ATTEND Internal Medicine
DX: A41.9 Sepsis, unspecified organism (principal); E87.20 Acidosis, unspecified; F02.80 Dementia in other diseases classified elsewhere, unspecified severity, without behavioral disturbance, psychotic disturbance, mood disturbance, and anxiety; G30.9 Alzheimer's disease, unspecified; I10 Essential (primary) hypertension; E78.5 Hyperlipidemia, unspecified; E11.9 Type 2 diabetes mellitus without complications; E05.90 Thyrotoxicosis, unspecified without thyrotoxic crisis or storm; K21.9 Gastro-esophageal reflux disease without esophagitis
CPT/HCPCS: 0241U-QW; 36415; 70450-TC; 71045-TC-FY; 71275-TC; 74177-TC; 80048; 80053; 81003; 82533; 82803; 82962; 83036; 83605; 84443; 84484; 85025; 85610; 85730; 86850; 86900; 86901; 87040; 87086; 93005; 93010; 94761; 97116-GP; 97162-GP; 99285-25; J0131; J0834; Q9967